=== PATIENT | female | born 1985 | race Caucasian/White ===

== ENCOUNTER 2021-06-24 01:03 | Day surgery (SDC) | payer OTHER, SELFPAY ==
[2021-06-11 13:09] VITALS: BMI 34.9
[2021-06-24 07:48] VITALS: BP 123/69; PULSE 101; RESP 20; TEMP 36.6; O2SAT 97
[2021-06-24] MEDS: LACTATED RINGERS 1,000 ML 150 ML IV CONT (08:10)
--- NOTE | 2021-06-24 08:43 | WPDANESEPPF ---
Anes - Initial Pre Proc Eval Procedure: Operation Date: 06/24/21 09:00 Proposed Procedures p Esophagogastroduodenoscopy - Wes Jimenez MD Date/Time: 06/24/21 08:43 Surgeon: Wes Jimenez MD Pre Op Diagnosis: GERD Patient Data Age: 35 Gender: F Height: 1.6 m Weight: 89.9 kg Last Vital Signs Temp 98 F 06/24/21 07:48 Pulse 101 H 06/24/21 07:48 Resp 20 06/24/21 07:48 BP 123/69 06/24/21 07:48 Pulse Ox 97 06/24/21 07:48 Allergies Allergy/AdvReac Type Severity Reaction Status Date / Time No Known Allergies Allergy Verified 06/24/21 07:46 Home Medications Medication Instructions Recorded Confirmed Type aspirin 81 mg tablet,delayed 81 mg PO DAILY 06/06/21 06/11/21 History release bupropion HCl 300 mg 24 hr tablet, 300 mg PO QAM 06/06/21 06/11/21 History extended release buspirone 5 mg tablet 5 mg PO DAILY tablet 06/06/21 06/11/21 History famotidine 20 mg tablet 20 mg PO DAILY 06/06/21 06/11/21 History pantoprazole 40 mg tablet,delayed 40 mg PO QAM 06/06/21 06/11/21 History release sertraline 100 mg tablet 100 mg PO DAILY 06/06/21 06/11/21 History sertraline 50 mg tablet 50 mg PO DAILY 06/06/21 06/11/21 History Patient hx anesthesia problems: none Family hx anesthesia problems: none Results Review: All pre-operative results and documents have been reviewed as part of the pre-operative evaluation. [facility] Past Medical History Medical History (Updated 06/06/21 @ 13:37 by ROSINA Vaz) Obese Social History Social History Smoking status: Never smoker Alcohol intake: current Alcohol use details: socially Substance use: never Substance use type: does not use Living arrangements: with family Spiritual care concerns: No Anes - Eval Final PreProcedure Day of Procedure 06/24/21 08:43 Patient weight: obese Heart: regular rate and rhythm Lungs: clear to auscultation Airway: Mallampati scale class II Neurological: alert and oriented Last oral intake: >/= 8 hours ASA classification: II Emergent: no Anesthetic plan: proceed Anesthesia type and monitoring: general GIVS and standard monitoring Results Review: All pre-operative results and documents have been reviewed as part of the pre-operative evaluation. Informed Consent: The patient's anesthetic plan and its attendant risks and benefits were discussed with the patient/family/POA. Questions were solicited and answers provided to the satisfaction of the patient/family/POA.
--- NOTE | 2021-06-24 09:08 | WPDHPUPDATE1 ---
History and Physical Update Update Date/Time: 06/24/21 09:08 History and Physical has been reviewed, including an updated exam of the patient. There are NO changes in the patient's condition. Risks, benefits, and alternatives have been discussed and questions answered. Patient agrees to proceed with procedure.
[2021-06-24 09:26] VITALS: BP 87/41; PULSE 85; RESP 19; O2SAT 97
[2021-06-24 09:36] VITALS: BP 91/51; PULSE 78; RESP 17; O2SAT 97
[2021-06-24 09:46] VITALS: BP 121/73; PULSE 82; RESP 26; O2SAT 100
== END 2021-06-24 10:12 | disposition home or self-care (01) ==
PROVIDERS: PCP Family Medicine; Visit Provider Internal Medicine Gastroenterology
PROC: 0DJ08ZZ Inspection of Upper Intestinal Tract, Via Natural or Artificial Opening Endoscopic (ICD-10-PCS; CPT 43235; principal; 2021-06-24 09:00)
DX: K21.9 Gastro-esophageal reflux disease without esophagitis (principal); R11.0 Nausea; K44.9 Diaphragmatic hernia without obstruction or gangrene; K29.50 Unspecified chronic gastritis without bleeding; Z79.82 Long term (current) use of aspirin; E66.9 Obesity, unspecified; Z68.35 Body mass index [BMI] 35.0-35.9, adult
CPT/HCPCS: 43239; 88305; J7120

== ENCOUNTER 2022-06-13 08:38 | Emergency (ER) | payer OTHER, SELFPAY ==
--- NOTE | ~2022-06-13 | US_ITS ---
EXAMINATION: US pelvic complete w TV DATE: 06/13/2022 11:12 INDICATION: Pelvic pain Comparison:07/21/2014 TECHNIQUE: Multiple transabdominal and endovaginal sonographic images of the pelvis performed. FINDINGS: The uterus measures 8.5 x 4.2 x 5.7 cm. There is an IUD present in the endometrium. The end ometrial complex measures 8 mm. There are nabothian cysts. The right ovary measures 2.8 x 1.5 x 1.3 cm and the left ovary measures 5.2 x 2.1 x 2 cm. There is an irregular left ovarian cyst measuring 2.8 x 1 x 0.7 cm There are small follicles in each ovary. Norm al doppler signal in both ovaries. There is free fluid in the pelvis. There are no abnormal masses seen on either side. IMPRESSION: 1. Irregular 2.8 x 1 x 0.7 cm left ovarian cyst, likely functional. 2: IUD present within the uterus. Reviewed, dictated and finalized at location A.
[2022-06-13 08:40] VITALS: BP 138/78; PULSE 100; RESP 16; TEMP 36.1; O2SAT 100
[2022-06-13 08:59] LABS: Appearance Urine Clear (Clear); Bilirubin Urine Negative (Negative); Blood Urine Negative (Negative); Color Urine Yellow (Yellow); Glucose Urine UA Negative (Negative); Ketones Urine Negative (Negative); Leukocyte Esterase Ur Negative LEU/UL (Negative); Nitrate Urine Negative (Negative); Protein Urine Negative (Negative); Specific Grav Ur 1.025 (1.001-1.035); Urobilinogen Urine 0.2 mg/dL (<2.0)
[2022-06-13 09:04] LABS: Add Urine Microscopic? NO
[2022-06-13 09:12] LABS: Mucus Urine Rare /lpf; RBC Urine 0-2 /hpf (0-2); Squamous Epithelial Cell Urine Moderate /hpf (Few); WBC Urine 0-3 /hpf
[2022-06-13] MEDS: MORPHINE SULFATE (*CRX) 4 MG/ML INJ IV PUSH (09:27)
[2022-06-13 09:34] LABS: Basophils Percent Auto 0.5 % (0.2-1.2); Eosinophils Absolute Auto 0.1 K/mm3 (0-0.3); Eosinophils Percent Auto 1.8 % (0-4.4); Hematocrit 41.4 % (37.0-47.0); Hemoglobin 13.8 g/dL (12.0-15.0); Immature Granulocyte Absolute 0.04 K/mm3 (0.00-0.031); Immature Granulocyte Percent A 0.6 % (0-0.5); Lymphocytes Absolute Auto 1.19 K/mm3 (0.9-3.2); Lymphocytes Percent Auto 19.3 % (18.3-44.2); Mean Corpuscular HGB Conc 33.3 g/dl (32-36); Mean Corpuscular Hemoglobin 29.1 pg (26-34); Mean Corpuscular Volume 87.3 fl (80-100); Mean Platelet Volume 10.4 fl (7.4-10.4); Monocytes Absolute Auto 0.6 K/mm3 (0.1-0.6); Monocytes Percent Auto 9.6 % (2.6-8.5); Neutrophils Absolute Auto 4.2 K/mm3 (1.3-6.7); Neutrophils Percent Auto 68.2 % (45.5-73.1); Platelet Count Result 276 k/mm3 (150-375); Red Blood Count 4.74 M/mm3 (4.2-5.4); Red Cell Distribution Width 14.3 % (11.5-14.5); White Blood Count 6.2 K/mm3 (4.5-10.0)
[2022-06-13 09:53] LABS: Alanine Aminotransferase 15 U/L (6-35); Albumin Level 4.4 g/dL (3.5-5.1); Alkaline Phosphatase 79 U/L (38-126); Anion Gap 10 mmol/L (8-16); Aspartate Amino Transferase 25 U/L (14-36); Bilirubin,Total 0.6 mg/dL (0.2-1.3); Blood Urea Nitrogen 12 mg/dL (7-17); Calcium 9.1 mg/dL (8.4-10.2); Carbon Dioxide 22 mmol/L (22-30); Chloride 106 mmol/L (98-107); Estimated CRCL calculation 76 ml/min; Estimated Glomerular Filt Rate > 60; Glucose 106 mg/dL (65-110); Lipase 180 U/L (23-300); Potassium 4.4 mmol/L (3.4-5.0); Sodium 138 mmol/L (137-145)
--- NOTE | 2022-06-13 11:45 | ED.GENADULT ---
HPI - General Adult General Chief complaint: Urogenital-Female Stated complaint: pelvic and rectal pain Time Seen by Provider: 06/13/22 08:43 History of Present Illness HPI narrative: Patient is a 35-year-old female who presents ER with lower pelvic pain and pain going into the rectum. Began after using the restroom this morning. [place] a sudden onset discomfort left side that moved into her bottom. No diarrhea. No urinary frequency urgency or dysuria. Pain has decreased but still present. No fevers or chills or sweats. Related Data Home Medications Medication Instructions Recorded Confirmed aspirin 81 mg tablet,delayed 81 mg PO DAILY 06/06/21 08/08/21 release bupropion HCl 300 mg 24 hr tablet, 300 mg PO QAM 06/06/21 08/08/21 extended release buspirone 5 mg tablet 5 mg PO DAILY 06/06/21 08/08/21 famotidine 20 mg tablet (Pepcid) 20 mg PO DAILY 06/06/21 08/08/21 sertraline 100 mg tablet 100 mg PO DAILY 06/06/21 08/08/21 sertraline 50 mg tablet 50 mg PO DAILY 06/06/21 08/08/21 aripiprazole 2 mg tablet mg 06/13/22 06/13/22 Allergies Allergy/AdvReac Type Severity Reaction Status Date / Time No Known Allergies Allergy Verified 06/13/22 08:53 Review of Systems Review of Systems: All systems reviewed & are unremarkable except as noted in HPI and below Constitutional: Constitutional: Denies chills and Denies fever(s) Respiratory: Respiratory: Denies cough and Denies dyspnea Gastrointestinal: Gastrointestinal: Reports abdominal pain, Denies diarrhea, Denies nausea and Denies vomiting Genitourinary: Genitourinary: Denies nocturia, Denies dysuria, Reports pelvic pain and Denies flank pain PMF Past Medical History Medical History (Updated 06/13/22 @ 11:48 by Jos Fitch MD) Obese Surgical History Surgical History (Updated 06/13/22 @ 11:46 by Jos Fitch MD) Status post sclerotherapy of varicose veins Social History Social History Alcohol intake: current Alcohol use details: socially Substance use: never Substance use type: does not use Spiritual care concerns: No Exam Narrative: GENERAL: Well-appearing, well-nourished, and in no acute distress. HEAD: Normocephalic, atraumatic. CHEST: Clear to auscultation. No respiratory distress. HEART: Regular rate and rhythm. Normal peripheral pulses. ABDOMEN: Soft, mildly tender in left adnexal region, nondistended. EXTREMITIES: Normal range of motion. No edema. SKIN: Warm, dry, no rash. NEURO: Alert and oriented x3. PSYCH: Normal mood and affect. Course Course Emergency Course: Patient informed of results. Discussed treatment plan. Discharge home. Vital Signs Vital signs: Vital Signs Temperature 97 F L 06/13/22 08:40 Pulse Rate 100 06/13/22 08:40 Respiratory Rate 16 06/13/22 08:40 Blood Pressure 138/78 06/13/22 08:40 Pulse Oximetry 100 06/13/22 08:40 Oxygen Delivery Room Air 06/13/22 08:40 Temperature 97 F L 06/13/22 08:40 Pulse Rate 100 06/13/22 08:40 Respiratory Rate 16 06/13/22 08:40 Blood Pressure 138/78 06/13/22 08:40 Pulse Oximetry 100 06/13/22 08:40 Oxygen Delivery Room Air 06/13/22 08:40 Medical Decision Making Vital Signs Vital Signs: Vital Signs Temperature 97 F L 06/13/22 08:40 Pulse Rate 100 06/13/22 08:40 Respiratory Rate 16 06/13/22 08:40 Blood Pressure 138/78 06/13/22 08:40 Pulse Oximetry 100 06/13/22 08:40 Oxygen Delivery Room Air 06/13/22 08:40 Temperature 97 F L 06/13/22 08:40 Pulse Rate 100 06/13/22 08:40 Respiratory Rate 16 06/13/22 08:40 Blood Pressure 138/78 06/13/22 08:40 Pulse Oximetry 100 06/13/22 08:40 Oxygen Delivery Room Air 06/13/22 08:40 Lab Data Result diagrams: 06/13/22 09:19 06/13/22 09:19 Labs: Lab Results 06/13/22 06/13/22 06/13/22 Range/Units 08:49 09:19 09:19 WBC 6.2 (4.5-10.
[2022-06-13 12:00] VITALS: BP 121/73; PULSE 80; RESP 16; O2SAT 98
== END 2022-06-13 12:00 | disposition home or self-care (01) ==
PROVIDERS: Emergency Provider Emergency Medicine; PCP Family Medicine
DX: N83.202 Unspecified ovarian cyst, left side (principal); Z79.82 Long term (current) use of aspirin; E66.9 Obesity, unspecified; Z68.37 Body mass index [BMI] 37.0-37.9, adult; Z97.5 Presence of (intrauterine) contraceptive device
CPT/HCPCS: 36415; 76830; 76856; 80053; 81003; 81025; 83690; 85025; 96374; 99284; J2270

== ENCOUNTER 2023-04-01 15:06 | Emergency (ER) | payer OTHER, SELFPAY ==
[2023-04-01] VITALS (7 sets, daily range): BP systolic 137–150; BP diastolic 80–88; PULSE 89–99; RESP 16; TEMP 36.6; O2SAT 100
--- NOTE | ~2023-04-01 | CT_ITS ---
EXAMINATION: CT abdomen pelvis w con DATE: 04/01/2023 18:24 INDICATION: Right lower quadrant abdominal pain. Right flank pain. TECHNIQUE: Computed tomography (CT) of the abdomen and pelvis was performed with 100 mL Omnipaque 350 intravenous contrast. Automated exposure control and iterative reconstruction technique were employe d. The dose-length product was 1012.64 mGy-cm. COMPARISON: CT abdomen and pelvis 04/15/2018 FINDINGS: The visualized portions of the lung bases demonstrate mild atelectasis. No pleural effusion . The heart size is normal. No pericardial effusion. The liver, gallbladder, spleen, pancreas, adrena l glands, and kidneys are normal. The appendix measures 9 mm in diameter and measured 10 mm on 018. There are no pathologically enlarged lymph nodes. There is no free intraperitoneal fluid. The sherry aj are unremarkable. IMPRESSION: 1. Appendiceal diameter of 9 mm, which is indeterminate for acute appendicitis. Reviewed, dictated and finalized at location E.
[2023-04-01 17:24] LABS: Basophils Percent Auto 0.3 % (0.2-1.2); Eosinophils Absolute Auto 0.1 K/mm3 (0-0.3); Eosinophils Percent Auto 1.4 % (0-4.4); Hematocrit 43.8 % (37.0-47.0); Hemoglobin 14.8 g/dL (12.0-15.0); Immature Granulocyte Absolute 0.04 K/mm3 (0.00-0.031); Immature Granulocyte Percent A 0.4 % (0-0.5); Lymphocytes Absolute Auto 2.06 K/mm3 (0.9-3.2); Lymphocytes Percent Auto 22.5 % (18.3-44.2); Mean Corpuscular HGB Conc 33.8 g/dl (32-36); Mean Corpuscular Hemoglobin 29.3 pg (26-34); Mean Corpuscular Volume 86.7 fl (80-100); Mean Platelet Volume 10.2 fl (7.4-10.4); Monocytes Absolute Auto 0.7 K/mm3 (0.1-0.6); Monocytes Percent Auto 7.3 % (2.6-8.5); Neutrophils Absolute Auto 6.2 K/mm3 (1.3-6.7); Neutrophils Percent Auto 68.1 % (45.5-73.1); Platelet Count Result 317 k/mm3 (150-375); Red Blood Count 5.05 M/mm3 (4.2-5.4); Red Cell Distribution Width 13.9 % (11.5-14.5); White Blood Count 9.2 K/mm3 (4.5-10.0)
[2023-04-01 17:32] LABS: Alanine Aminotransferase 22 U/L (6-35); Albumin Level 4.9 g/dL (3.5-5.1); Alkaline Phosphatase 101 U/L (38-126); Anion Gap 5 mmol/L (8-16); Aspartate Amino Transferase 25 U/L (14-36); Bilirubin,Total 0.7 mg/dL (0.2-1.3); Blood Urea Nitrogen 15 mg/dL (7-17); Carbon Dioxide 26 mmol/L (22-30); Chloride 103 mmol/L (98-107); Estimated CRCL calculation 62 ml/min; Estimated Glomerular Filt Rate 51; Glucose 95 mg/dL (65-110); Lipase 153 U/L (23-300); Potassium 3.8 mmol/L (3.4-5.0); Sodium 134 mmol/L (137-145)
[2023-04-01 17:38] LABS: Appearance Urine Clear (Clear); Bacteria Urine Rare /hpf; Bilirubin Urine Negative (Negative); Blood Urine Negative (Negative); Color Urine Yellow (Yellow); Glucose Urine UA Negative (Negative); Ketones Urine Trace mg/dL (Negative); Leukocyte Esterase Ur Trace LEU/UL (Negative); Nitrate Urine Negative (Negative); Non Pathogenic Casts 0-2; Protein Urine Negative (Negative); RBC Urine 0-2 /hpf (0-2); Specific Grav Ur 1.012 (1.001-1.035); Squamous Epithelial Cell Urine None seen /hpf (Few); Urobilinogen Urine 0.2 mg/dL (<2.0); WBC Urine 0-5 /hpf
[2023-04-01 17:42] LABS: Add Urine Microscopic? YES
--- NOTE | 2023-04-01 17:48 | ED.ABDPAIN ---
HPI - Abdominal Pain General Chief Complaint: Abdominal Pain <Karrie Osorio APRN - Last Filed: 04/02/23 02:15> Stated Complaint: abd pain/nausea/diarrhea <Karrie Osorio APRN - Last Filed: 04/02/23 02:15> Time Seen by Provider: 04/01/23 17:18 <Karrie sOorio APRN - Last Filed: 04/02/23 02:15> Source: patient <Karrie Osorio APRN - Last Filed: 04/02/23 02:15> Mode of arrival: ambulatory <Karrie Osorio APRN - Last Filed: 04/02/23 02:15> Limitations: no limitations <Karrie Osorio APRN - Last Filed: 04/02/23 02:15> History of Present Illness HPI narrative: 37-year-old female presents today with concerns of right lower abdominal pain, nausea, diarrhea that started on Wednesday. Patient states currently she has no diarrhea but right lower quadrant pain has persisted. Also with nausea but no vomiting. Patient states she is able to tolerate fluids without issues. Denies any burning on urination, hematuria, flank pain. Has had a hysterectomy. But still has appendix. On pantoprazole. And antidepressants. Patient denies any sick contacts. <Karrie Osorio APRN - Last Filed: 04/02/23 02:15> MD elicited complaint: abdominal pain <Karrie Osorio APRN - Last Filed: 04/02/23 02:15> Related Data Home Medications: Home Medications Medication Instructions Recorded Confirmed aspirin 81 mg tablet,delayed 81 mg PO DAILY 06/06/21 08/08/21 release bupropion HCl 300 mg 24 hr tablet, 300 mg PO QAM 06/06/21 08/08/21 extended release buspirone 5 mg tablet 5 mg PO DAILY 06/06/21 08/08/21 famotidine 20 mg tablet (Pepcid) 20 mg PO DAILY 06/06/21 08/08/21 sertraline 100 mg tablet 100 mg PO DAILY 06/06/21 08/08/21 sertraline 50 mg tablet 50 mg PO DAILY 06/06/21 08/08/21 aripiprazole 2 mg tablet mg 06/13/22 06/13/22 <Karrie Osorio APRN - Last Filed: 04/02/23 02:15> Allergies/Adverse Reactions: Allergies Allergy/AdvReac Type Severity Reaction Status Date / Time No Known Allergies Allergy Verified 06/13/22 08:53 <Karrie Osorio APRN - Last Filed: 04/02/23 02:15> Review of Systems Review of Systems: CONSTITUTIONAL: Denies fever, chills, or sweats. EYES: Denies visual changes, redness, or discharge. CARDIOVASCULAR: Denies chest pain, palpitations, or edema. RESPIRATORY: Denies cough or dyspnea. GASTROINTESTINAL: Right lower quadrant pain, nausea, diarrhea. GENITOURINARY: Denies dysuria or hematuria. SKIN: Denies rash or itching. MUSCULOSKELETAL: Denies back pain, joint pain, or myalgia. NEUROLOGIC: Denies headache, numbness, dizziness, or weakness. PSYCHIATRIC: Denies anxiety or depression. <Karrie Osorio APRN - Last Filed: 04/02/23 02:15> PMFSH Past Medical History Medical History: Medical History Depression Obese <Karrie Osorio APRN - Last Filed: 04/02/23 02:15> Surgical History Surgical History: Surgical History Status post sclerotherapy of varicose veins <Karrie Osorio APRN - Last Filed: 04/02/23 02:15> Social History Social History: Social History Alcohol intake: current Alcohol use details: socially Substance use: never Substance use type: does not use Living arrangements: with family Spiritual care concerns: No <Karrie Osorio APRN - Last Filed: 04/02/23 02:15> Exam Narrative: GENERAL: Well-appearing, well-nourished, and in no acute distress. HEAD: Normocephalic, atraumatic. EYES: PERRLA and EOMI. NECK: Supple. No adenopathy or masses. CHEST: Clear to auscultation. No respiratory distress. No wheezes rales or rhonchi HEART: Regular rate and rhythm. No murmur heard. Normal peripheral pulses. ABDOMEN: Soft, right lower quadrant tenderness, no rebound tenderness, nondistended, normal active bowel sounds. EXTREMITIES: Normal range of
--- NOTE | 2023-04-01 18:15 | PC.NURSE ---
pt to ct via wheelchair at this time
[2023-04-01] MEDS: SODIUM CHLORIDE 0.9% IV 1,000 ML 999 ML IV CONT ×2 (18:26)
[2023-04-01] MEDS: KETOROLAC 30 MG/ML VIAL (*BKC) IV PUSH (19:20)
== END 2023-04-01 20:56 | disposition home or self-care (01) ==
PROVIDERS: Emergency Medicine; Emergency Provider Nurse Practitioner Family; PCP Family Medicine
DX: R10.31 Right lower quadrant pain (principal); F32.A Depression, unspecified; E66.9 Obesity, unspecified; Z68.38 Body mass index [BMI] 38.0-38.9, adult
CPT/HCPCS: 36415; 74177; 80053; 81001; 83690; 85025; 96361; 96374; 99284; J1885; J7030; Q9967

== ENCOUNTER 2023-07-06 15:00 | Outpatient (CLI) | payer OTHER, SELFPAY ==
--- NOTE | ~2023-07-06 | XR_ITS ---
XR abdomen/kub 1V DATE: 07/06/2023 15:10 INDICATION: Right flank pain. History kidney stones. TECHNIQUE: 2 supine AP views COMPARISON: 07/06/2023 bilateral renal ultrasound 04/01/2023 CT abdomen pelvis FINDINGS: Several probable right calcified pelvic phleboliths; otherwise no calcification is noted ov erlying the kidneys or expected position of the ureters. The psoas shadows are intact. No visceromegaly is evident. The bowel gas pattern is unremarkable, wit hout obstruction. Included skeletal structures are unremarkable. IMPRESSION: No significant abnormality Reviewed, dictated and finalized at Location A. Reviewed, dictated and finalized at location A. IMPRESSION: No significant abnormality
--- NOTE | ~2023-07-06 | US_ITS ---
US renal BI DATE: 07/06/2023 15:26 INDICATION: Abnormal kidney function study TECHNIQUE: Real-time imaging of kidneys and urinary bladder COMPARISON: 07/06/2023 KUB 04/01/2023 CT abdomen pelvis FINDINGS: The right kidney measures approximately 12.9 cm length, left kidney 10.6 cm. There is duplication of both kidneys. No renal mass lesion or hydronephrosis is detected. The urinary bladder is unremarkable. Bilateral ur eteral jets. IMPRESSION: Bilateral renal duplication No renal mass lesion or hydronephrosis Reviewed, dictated and finalized at Location A. Reviewed, dictated and finalized at location A.
== END 2023-07-06 15:01 ==
LOC: GOSHIMG 15:01
PROVIDERS: PCP Family Medicine; Visit Provider Internal Medicine Nephrology
DX: R94.4 Abnormal results of kidney function studies (principal); N20.0 Calculus of kidney
CPT/HCPCS: 74018; 76775

== ENCOUNTER 2024-04-09 10:27 | Emergency (ER) | payer OTHER, SELFPAY ==
[2024-04-09 10:33] VITALS: BP 129/84; PULSE 100; RESP 18; TEMP 36.4; O2SAT 100
[2024-04-09 11:29] LABS: EDINFLUASCREEN Negative; EDINFLUBSCREEN Negative; EDSTREPNEGPOS1 Presumptive Negative
--- NOTE | 2024-04-09 11:29 | ED.GENADULT ---
HPI - General Adult General Chief complaint: Upper Respiratory Infection Stated complaint: Sore Throat Source: patient Mode of arrival: ambulatory Limitations: no limitations History of Present Illness HPI narrative: Patient presents for evaluation of sick symptoms for last 2 days. Symptoms include runny nose, sore throat, facial pain, and occasional cough. No fever, chills, nausea, vomiting. She has chronic diarrhea which is unchanged from her baseline. No recent sick contacts to her knowledge. She took NyQuil and Tylenol for symptoms. She does not smoke. Related Data Home Medications Medication Instructions Recorded Confirmed aspirin 81 mg tablet,delayed 81 mg PO DAILY 06/06/21 10/12/23 release famotidine 20 mg tablet (Pepcid) 20 mg PO DAILY 06/06/21 10/12/23 bupropion HCl 300 mg 24 hr tablet, 150 mg PO QAM 06/30/23 10/12/23 extended release cholecalciferol (vitamin D3) 1,250 1,250 mcg PO WEEKLY 06/30/23 10/12/23 mcg (50,000 unit) tablet lamotrigine 50 mg tablet,extended 50 mg PO BID 06/30/23 10/12/23 release 24 hr mecobalamin (vitamin B12) 10,000 mcg IM MONTHLY 06/30/23 10/12/23 mcg solution for injection methylphenidate HCl 36 mg 36 mg PO QAM 06/30/23 10/12/23 tablet,extended release 24 hr (Concerta) sertraline 100 mg tablet 200 mg PO DAILY 06/30/23 10/12/23 alprazolam 0.5 mg tablet mg 04/09/24 04/09/24 cyanocobalamin (vitamin B-12) mcg 04/09/24 1,000 mcg/mL injection solution topiramate 25 mg tablet mg 04/09/24 Allergies Allergy/AdvReac Type Severity Reaction Status Date / Time No Known Allergies Allergy Verified 04/09/24 10:46 Review of Systems Review of Systems: CONSTITUTIONAL: Denies fever, chills, or sweats. EYES: Denies visual changes, redness, or discharge. ENT: Reports facial pain. Reports sinus congestion, rhinorrhea and sore throat CARDIOVASCULAR: Denies chest pain, palpitations, or edema. RESPIRATORY: Reports occasional cough. Denies shortness of breath. GASTROINTESTINAL: Denies abdominal pain, nausea, vomiting, or diarrhea. GENITOURINARY: Denies dysuria or hematuria. SKIN: Denies rash or itching. MUSCULOSKELETAL: Denies back pain, joint pain, or myalgia. NEUROLOGIC: Denies headache, numbness, dizziness, or weakness. PSYCHIATRIC: Denies anxiety or depression. [facility] Past Medical History Medical History Depression Inflammatory arthritis Obese Surgical History Surgical History H/O section X's 4 History of partial hysterectomy History of right oophorectomy Status post sclerotherapy of varicose veins Family History Family History Mother Family history non-contributory Social History Social History Smoking status: Never smoker Alcohol intake: current Alcohol use details: socially Substance use: never Substance use type: does not use Lack of Transportation: No Lack of Food: Never True Current Housing: I Have Housing Concerned About Future Housing: No Difficulty Paying Gas/Electric Bills: No Difficulty Paying for Meds: No Currently Unemployed: No Education: Bachelor's Degree Difficulty w/ Childcare or Family Care: No Living arrangements: with family Gender identity (if verbalized by the patient): Female Sexual Orientation (if Verbalized by the Patient): Straight or Heterosexual Spiritual care concerns: No Exam Narrative: GENERAL: Well-appearing, well-nourished, and in no acute distress. HEAD: Normocephalic, atraumatic. EYES: PERRLA and EOMI. ENT: Nares clear, no rhinorrhea or epistaxis. Mucous membranes moist. Oropharynx without tonsillar hypertrophy exudate or other lesions. Bilateral TMs pearly adrian nonbulging NECK: Supple. No adenopathy or masses. No llanes
== END 2024-04-09 11:30 | disposition home or self-care (01) ==
PROVIDERS: Emergency Provider Nurse Practitioner
DX: U07.1 COVID-19 (principal); F32.A Depression, unspecified; M13.80 Other specified arthritis, unspecified site; E66.9 Obesity, unspecified; Z68.37 Body mass index [BMI] 37.0-37.9, adult; Z90.711 Acquired absence of uterus with remaining cervical stump
CPT/HCPCS: 87081; 87426; 87804; 87880; 99213; G0463

== ENCOUNTER 2024-12-16 12:12 | Emergency (ER) | payer OTHER, SELFPAY ==
--- OUTSIDE RECORDS SUMMARY | 2024-12-16 12:15 | XMS_ITS ---
Author Organization [facility] Address [address] [place] [address] Phone Care Team Providers Care Damper Fitter Name Role Phone Unavailable Unavailable Unavailable Plan of Treatment Findings Encounter Date Continue current medication COVID SICK V ISIT- NEW PATIENT with JOHN [employer] 09/26/2021 Last Documented On 2 1:36PM ; [facility] The options include close observation CO VID SICK VISIT- NEW PATIENT with JOHNKALA [employer] 09/26/2021 Last Documented On 2 1:36PM ; [facility] Assessments Includes: Assessments for all patient encounters Findings Encounter Date Contact with and (Suspected) exposure to COVID-19 COVID SICK VISIT- NEW PATIENT with JOHN [employer] 09/26/2021 Last Documented On 2 1:36PM ; [facility] Medical Equipment - Implanted Devices Includes: Current and historical Devices No Medical Equipment Recorded Medications Includes: Current and historical Medications Current Medications (continue as prescribed) Pantoprazole Sodium 40 MG Or al Tablet Delayed Release 08/31/2021 Provider: BRAD THOMPSON MD Diagnosis: Last Documented On 2 1:15PM By Suha Alcantara MA ; [facility] buPROPion HCl ER (XL) 300 MG Oral Tablet Extended Release 24 Hour 07/04/2021 Provider: KIERAN VILLASEÑOR MD Diagnosis: Last Documented On 2 1:15PM By Suha Alcantara MA ; [facility] busPIRone HCl 5 MG Oral Tablet 07/04/2021 Provider: KIERAN VILLASEÑOR MD Diagnosis: Last Documented On 2 1:15PM By Suha Alcantara MA ; [facility] Sertraline HCl 100 MG Oral Tablet 07/04/2021 Provide r: KIERAN VILLASEÑOR MD Diagnosis: Last Documented On 2 1:15PM By Suha Alcantara MA ; [facility] Medications Administered Includes: Administered Medications in patient's chart No Administered Medications Recorded Results Includes: Results from 12/17/2023 through 12/16/2024 No Results Recorded For Specified Dates History of Present Illness History of Present Illness not supported for this document type No History of Present Illness Recorded Social History Description Last Updated No tobacco use 09/26/2021 Last Documented On 2 1:36PM ; [facility] Smoking Status Unknown Medical History Includes: Medical History in patient's chart Description Last Updated Exposure to a contagious disease 022 Last Documented On 2 1:36PM ; [facility] Not taking OTC medications 09/26/2021 Last Documented On 2 1:36PM ; [facility] Family History Includes: Family History in patient's chart No Family History Recorded Review of Systems Review of Systems not supported for this document type No Review of Systems Recorded Mental Status No Mental Status Recorded Functional Status No Functional Status Recorded Physical Exam Physical Exam not supported for this document type No Physical Exam Recorded Allergies Includes: Active, inactive, and resolved Allergies No Known Allergies Insurance Includes: Active Insurance Policies Plan Name Member ID Group # Subscriber Relationship Effect vernon Dates 1 - [facility] [id number] JEVON lara Clinical Notes Includes: Signed Clinical Notes starting from 10/09/2022 No Clinical Notes Recorded
--- OUTSIDE RECORDS SUMMARY | 2024-12-16 12:15 | XMS_ITS | Clinical Summary ---
Author Organization [facility] Address [address] [place] [address] Phone Care Team Providers Care Sizing Machine Tender Name Role Phone Unavailable Unavailable Unavailable Reason for Visit and Chief Complaint The Chief Complaint is: Fatigue, bodyaches, and headache since Wednesday, exposed to covid on 09-13-21 Plan of Treatment - The options include close observation - Last Documented On 09/26/2021 1:36PM ; [facility] - Continue current medication - Last Documented On 09/26/2021 1:36PM ; [facility] Rapid COVID testing performed today and was negative. Patient to continue to monitor symptoms closely as rapid testing may have false negative results. Patient advised that they may return to work/school when fever free for 24 hours and symptoms have improved. Call with development of additional or worsening symptoms. Go to ED with severe respiratory symptoms. - Last Documented On 09/26/2021 1:36PM ; [facility] Assessments Includes: Assessments from this encounter Findings - Contact with and (Suspected) exposure to COVID-19 [Contact with and (suspected) exposure to COVID-19] - Last Documented On 09/26/2021 1:36PM ; [facility] Medical Equipment - Implanted Devices Includes: Current Devices No Medical Equipment Recorded Medications Includes: Medications discussed during this encounter and other current Medications Current Medications (continue as prescribed) Pantoprazole Sodium 40 MG Or al Tablet Delayed Release 08/31/2021 Provider: BRAD THOMPSON MD Diagnosis: Last Documented On 1:15PM By Suha Alcantara MA ; [facility] buPROPion HCl ER (XL) 300 MG Oral Tablet Extended Release 24 Hour 07/04/2021 Provider: KIERAN VILLASEÑOR MD Diagnosis: Last Documented On 2 1:15PM By Suha Alcantara MA ; [facility] busPIRone HCl 5 MG Oral Tablet 07/04/2021 Provider: KIERAN VILLASEÑOR MD Diagnosis: Last Documented On 2 1:15PM By Suha Alcantara MA ; [facility] Sertraline HCl 100 MG Oral Tablet 07/04/2021 Provide r: KIERAN VILLASEÑOR MD Diagnosis: Last Documented On 2 1:15PM By Suha Alcantara MA ; [facility] Medications Administered Includes: Administered Medications from this encounter No Administered Medications Recorded Vital Signs Includes: Vital Signs from this encounter Vital Name 09/26/2021 01:15P Pulse Rate-Sitting (bpm) 95 Temp-Oral (F) 98.9 Oxygen Saturation (%) 96 Last Documented: On 09/26/2021 1:15PM ; [facility] Results Includes: Results discussed during this encounter Rapid COVID Test [facility] Ordered by JOHN GOULD on 03/2022 Collected: Reported: 09/26/2021 13:27 Last Documented On 2 1:28PM ; [facility] Reviewed on 09/26/2021; All test results are final unless otherwise noted. Rapid COVId neg N (Normal) Last Documented On 2 1:28PM ; [facility] Int. QC Acceptable yes N (Normal) Last Documented On 2 1:28PM ; [facility] Lot # and Exp. Date [id number] 12-21-21 N (Normal) Last Documented On 2 1:28PM ; [facility] History of Present Illness Includes: History of Present Illness from this encounter STEVE THOMAS is a 36 year old female. - Allergy list reviewed - Medication list reviewed - Feeling tired - Not feeling poorly (malaise) - No fever - No chills - Headache - No sinus pain - No swollen glands in the neck - No ear symptoms - No earache - No nasal discharge - No postnasal drip - No nasal passage blockage (stuffiness) - No sneezing - No sore throat - No chest pain or discomfort - Not feeling congested in the chest - No shortness of breath - No cough - Not coughing up sputum - No wheezing - Normal appetite - No nausea - No vomiting - No abdominal pain - No diarrhea - Myalgias - No anosmia - No taste disturbances - Not unpleasantly altered - No skin symptoms Jevon is a 36-year-old female patient that presented to the walk-in clinic for fatigue, body aches and headache that started one week ago. She reports that she was exposed to COVID on 09/13/21. She is COVID-vaccinated. Social History Description Last Updated No tobacco use 09/26/2021 Last Documented On 2 1:36PM ; [facility] Smoking Status Unknown Procedures and Surgical History Includes: Procedures from this encounter Procedures Code Diagnosis Performing Provider Service L ocation Service Date Pt to use OTC fever/pain product as needed per product instruction.~ Last Documented On 2 1:34PM ; [facility] plan of care reviewed and agreed to Last Documented On 2 1:34PM ; [facility] patient to call if symptoms worsen or not improved to update patient's status as needed Last Documented On 2 1:34PM ; [facility] Medical History Includes: Medical History addressed during this encounter Description Last Updated Exposure to a contagious disease 022 Last Documented On 2 1:36PM ; [facility] Not taking OTC medications 09/26/2021 Last Documented On 2 1:36PM ; [facility] Family History Includes: Family History addressed during this encounter No Family History Recorded Review of Systems Includes: Review of Systems from this encounter Systemic: No fever and no chills. Head: Headache. No sinus pressure. Otolaryngeal: No earache, no nasal discharge, and no sore throat. Cardiovascular: No chest pain or discomfort. Pulmonary: No cough and no wheezing. Gastrointestinal: No vomiting, no abdominal pain, and no diarrhea. Musculoskeletal: Muscle aches. Skin: No skin lesions. Mental Status Includes: Mental Status from this encounter No Mental Status Recorded Functional Status Includes: Functional Status from this encounter No Functional Status Recorded Physical Exam Includes: Physical Exam from this encounter Allergies Includes: Active Allergies No Known Allergies Encounters Encounter Provider Location Date Check-In Time Check-Out Time Diagnosis COVID SICK VISIT- NEW PATIENT JOHN SALTER ESL TEACHER-C [facility] 09/26/19 22 12:51PM 1:28PM Contact with and (Suspected) Exposure To Covid-19 Insurance Includes: Active Insurance Policies Plan Name Member ID Group # Subscriber Relationship Effect vernon Dates 1 - [facility] [id number] JEVON lara Clinical Notes Includes: Clinical Notes from this encounter No Clinical Notes Recorded
--- OUTSIDE RECORDS SUMMARY | 2024-12-16 12:15 | XMS_ITS | Encounter Summary ---
Author Organization [facility] Address [address] [place] [address] Care Team Providers Care General Utility Maintenance Repairer Name Role Phone Davy Lua MD Unavailable [phone] Bhavya Malloy Primary Care Provider [phone] Encounter Details Date Type Department Care Team (Late st Contact Info) Description 10/23/2024 Ophth Exam [facility] - Ophthalmology [address] [place] [phone] Josue Obando, DO [address] [facility] [place] [address] Social History Tobacco Use Types Packs/Day Years Used Date Smoking Tobacco: Never Smokeless Tobacco: Never Alcohol Use Standard Drinks/Week Comments Never 0 (1 standard drink = 0.6 oz pur e alcohol) AUDIT-C Answer Date Recorded Q1: How often do you have a drink containing alcohol? Never 10/23/2024 Q2: How many drinks containi ng alcohol do you have on a typical day when you are drinking? Patient does not drink Q3: How often do you have si x or more drinks on one occasion? Never 10/23/2024 PHQ-2 Answer Date Recorded Patient Health Questionnaire-2 Score 0 07/25/2024 Sex and Gender Information Value Date Recorded Sex Assigned at Not on file Gender Identity Not on file Sexual Orientation Not on file documented as of this encounter Plan of Treatment Upcoming Encounters Date Type Department Care Team (Late st Contact Info) Description 01/05/2025 9:00 AM CDT Office Visit [facility] - Neurology [address] [place] [address], [place] [address] Agnes Hopper MD [address] [place] [address] 01/11/2025 12:00 PM CDT Office Visit [facility] - Neurology [address] [place] [address], [place] [phone] Edwin Blanchard MD [address] [place] [address] [place] [phone] 02/05/2025 9:15 AM CDT Office Visit [facility] - Nephrology [address] [place] [address], [place] [address] Rafita Kitchen MD [address] [place] [phone] documented as of this encounter Goals Goal Patient Goal Type Associated Problems Recent Progress Patient-Stated? Author Medication Management General On track( 024 8:32 AM NURSERYMAN ASSISTANT) Harmony Sanchez, NEMO Note: Expected end date: ongoing Interventions: Take all medications as prescribed documented as of this encounter Visit Diagnoses Not on filedocumented in this encounter Care Teams General Utility Maintenance Repairer Relationship Specialty Start Date End Date Bhavya Malloy [address] [place] [phone] PCP - General 07/25/24 Davy Lua MD [address] [place] [address] [address] [place] [address] 02/11/17 documented as of this encounter
--- OUTSIDE RECORDS SUMMARY | 2024-12-16 12:15 | XMS_ITS | Clinical Summary ---
Author Organization [facility] Address [address], [address] [address] Phone Care Team Providers Care Fire Alarm Inspector Name Role Phone Bhavya Malloy COIN MACHINE COLLECTOR SUPERVISOR, CYTOLOGY MANAGER Primary Care Provider [phone] Allergies No known active allergies Medications dicyclomine (BENTYL) 20 MG Tablet Take 1 Tablet by mouth every 6 hours as needed for Other. 20 Tablet 02/29/2024 Active ondansetron (ZOFRAN-ODT) 4 MG TABLET DISPERSIBLE Take 1 Tablet by mouth every 8 hours as needed for Nausea - 1st line. 10 Tablet 02/29/2024 Active Social History Tobacco Use Types Packs/Day Years Used Date Smoking Tobacco: Never Smokeless Tobacco: Never Tobacco Cessation:Counseling Given: Not Answered Alcohol Use Standard Drinks/Week Comments Yes 0 (1 standard drink = 0.6 oz pur e alcohol) occasionally Comments No Sex and Gender Information Value Date Recorded Sex Assigned at Not on file Legal Sex Female 11:15 AM PAD MACHINE FEEDER Gender Identity Not on file Sexual Orientation Not on file Last Filed Vital Signs Vital Sign Reading Time Taken Comments Blood Pressure 135/76 02/29/2024 10:00 PM CDT Pulse 98 02/29/2024 10:00 PM CDT Temperature 36 C (96.8 F) 02/29/2024 7:03 PM CDT Respiratory Rate 18 02/29/2024 7:03 PM CDT Oxygen Saturation 98% 02/29/2024 10:00 PM CDT Inhaled Oxygen Concentration - - Weight 93 kg (205 lb) 02/29/2024 7:03 PM CDT Height 160 cm (5' 3 ) 02/29/2024 7:03 PM CDT Body Mass Index 36.31 02/29/2024 7:03 PM CDT Plan of Treatment Health Maintenance Due Date Last Done Comments Hepatitis C Virus (HCV) Screening 1986 Hepatitis B Immunization (1 of 3 - 19+ 3-dose series) 2005 Influenza Immunization (#1) 05/21/202406/20, 06/11/2021, 06/13/2020, Additional history exists SARS-COV-2 Immunization ( season) 2024 07/08/2023, 01/13/2021, 12/23/2020 Respiratory Syncytial Virus (RSV) Immunization (Adult) (1 - 1-dose 75+ series) 2061 DTaP/Tdap/Td Immunization Discontinued 2019, 12/14/2017, 08/14/2015 TdaP Immunization Completed 09/04/2020, , 08/14/2015 Meningococcal Immunization (ACWY) Aged Out No longer eligible based on patient's age to complete this topic Pneumococcal Immunization Combined Aged Out No longer eligible based on patient's age to complete this topic Rotavirus Immunization Aged Out No lo nger eligible based on patient's age to complete this topic Insurance [facility] Care Teams Fire Alarm Inspector Relationship Specialty Start Date End Date Bhavya Malloy, JUAN, CYTOLOGY MANAGER [address] [place] [address] PCP - General Advanced Practice Nurse 02/29/24
--- OUTSIDE RECORDS SUMMARY | 2024-12-16 12:15 | XMS_ITS | Continuity of Care Document ---
Author Organization [facility] Address [address] [place] [address] Phone Care Team Providers Care Principal Administrative Clerk Name Role Phone Unavailable Unavailable Unavailable Advance Directives Directive Yes / No Effective Date File Name No Information Encounters Encounter Description Practice Location Reason(s) For Visit Diagnoses Date Provider Providers Copied on Encounter [facility], [address] [facility], [place], [place], [id number], tel:[phone] [facility] OUTPATIENT No Information 6 No Information Referring Provider: KYLIE CASTILLO H, [address], [place], [address]. tel:[phone] Family History Family Member Type Diagnosis Age At Onset No Information Payers Payer name Insurance type Covered libertarian ID Authoriza tion(s) [facility] [id number] CI [id number] Social History Type Description Quantity Date Captured Comments Sex Female Smoking Status No Information Chief Complaint And Reason For Visit No Information History Of Present Illness Encounter Date Complaint History Of Prese nt Illness No Information Instructions Date Instruction Additional Infor mation No Information Assessments Type Assessment Date No Information
--- OUTSIDE RECORDS SUMMARY | 2024-12-16 12:15 | XMS_ITS | Encounter Summary ---
Author Organization [facility] Address [address] [place] [address] Care Team Providers Care Deputy Building Guard Name Role Phone Davy Lua MD Unavailable [phone] Bhavya Malloy Primary Care Provider [phone] Encounter Details Date Type Department Care Team (Late st Contact Info) Description 10/23/2024 Ophth Exam [facility] - Ophthalmology [address] [place] [phone] Sean Salvador MD [address] [place] [address] Social History Tobacco Use Types Packs/Day Years [...] Office Visit [facility] - Neurology [address] [place] [address], [place] [address] Agnes Hopper MD [address] [place] [address] 01/11/2025 12:00 PM CDT Office Visit [facility] - Neurology [address] [place] [address], [place] [phone] Edwin Blanchard MD [address] [place] [address] [place] [address] 02/05/2025 9:15 AM CDT Office Visit [facility] - Nephrology [address] [place] [address], [place] [address] Rafita Kitchen MD [address] [place] [phone] documented as of this encounter Goals Goal Patient Goal Type Associated Problems Recent Progress Patient-Stated? Author Medication Management General On track( 024 8:32 AM DYE PADDER OPERATOR) Harmony Sanchez, NEMO Note: Expected end date: ongoing Interventions: Take all medications as prescribed documented as of this encounter Visit Diagnoses Not on filedocumented in this encounter Care Teams Deputy Building Guard Relationship Specialty Start Date End Date Bhavya Malloy [address] [place] [phone] PCP - General 07/25/24 Davy Lua MD [address] [place] [address] [facility] [address] [place] [address] 02/11/17 documented as of this encounter
--- OUTSIDE RECORDS SUMMARY | 2024-12-16 12:15 | XMS_ITS | Clinical Summary ---
Author Organization 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,non-owned Affiliates and Associated Physician Practices is amultiple site organization consisting of ambulatory clinics and hospital sitesin [place], [place], [place] and [place]. This disclosure is being madepursuant to the Care Everywhere program and may not contain all information available regarding this patient. Last updated 18.[facility] [place] Allergies No known active allergies Medications * Be aware that medications may not be up to date on this document. Alwaysverify current medications with the patient. Medication Sig Dispensed Refills Start Date End Date Status Famotidine (PEPCID AC PO) Active BABY ASPIRIN PO Take 81 mg by mouth once daily Active pantoprazole EC (Protonix) 40 MG tablet Take 1 (one) tablet by mouth daily before breakfast Active sertraline (Zoloft) 100 MG tablet Take 2 (two) tablets by mouth once daily Active BD Integra Syringe 25G X 1 3 ML MISC as directed 06/03/2023 Active cyanocobalamin (Vitamin B-12) injection INJECT 1 ML UNDER THE SKIN EVERY MONTH DIRECTED FOR 90 DAYS 07/07/2024 Active lurasidone (Latuda) 40 MG tablet Take 1 (one) tablet by mouth once daily 07/07/2024 Active acetaminophen (Tylenol) 325 MG tablet Take 1 (one) tablet by mouth as needed for Fever or Pain Maximum allowable Acetaminophen amount = 4 Grams (4000 mg) / 24 hours. Active Methylphenidate HCl (methylphenidate CR) 54 MG tablet Take 1 (one) tablet by mouth every morning Active buPROPion XL 24hr (Wellbutrin-XL) 300 MG tablet Take 1 (one) tablet by mouth once daily 08/25/2024 Active Orilissa 150 MG tablet Take 1 (one) tablet by mouth once daily Active vitamin D, ergocalciferol, (Drisdol) 1.25 MG (27070 UT) capsule TAKE 1 CAPSULE BY MOUTH EVERY WEEK DIRECTED 08/25/2024 Active meclizine (Antivert) 25 MG tablet CHEW AND SWALLOW 1 TABLET BY MOUTH 2 TO 3 TIMES PER DAY NEEDED FOR DIZZINESS FOR 5 DAYS 10/18/2024 Active acetaZOLAMIDE ER 12hr (Diamox Sequel) 500 MG capsule Take 2 (two) capsules by mouth 2 times daily 120 capsule 3 11/03/2024 03/03/2025 Active Active Problems Problem Noted Date Diagnosed Date Hypophosphatemia 10/23/2024 Generalized headache 10/23/2024 Papilledema of both eyes 10/23/2024 CKD (chronic kidney disease) stage 3, GFR 30-59 ml/min 08/08/2024 Anxiety Depression Venous vascular malformations Encounters Date Type Department Care Team Description 11/13/2024 8:30 AM RN ER Office Visit [facility] - Ophthalmology [address] [place] [phone] Neil Diez MD IIH (idiopathic intracranial hypertension) (Primary Dx) 11/13/2024 8:15 AM RN ER Clinical Support [facility]mology [address] [place] [phone] Neil Diez MD IIH (idiopathic intracranial hypertension) (Primary Dx) 11/13/2024 8:10 AM RN ER Clinical Support [facility] Ophthalmology [address] [place] [phone] Neil Diez MD II (idiopathic intracranial hypertension) (Primary Dx) 11/13/2024 8:05 AM RN ER Clinical Support [facility] - Ophthalmology [address] [place] [phone] Neil Diez MD II (idiopathic intracranial hypertension) (Primary Dx) 11/13/2024 Travel 11/03/2024 Telephone [facility] - Ophthalmology [address] [place] [phone] Neil Diez MD Question 10/30/2024 11:20 AM RN ER Clinical Support [facility] - Ophthalmology [address] [place] [phone] Neil Diez MD Optic disc edema (Primary Dx) 10/30/2024 11:15 AM RN ER Clinical Support [facility] - Ophthalmology [address] [place] [phone] Neil Diez MD Optic disc edema (Primary Dx) 10/30/2024 11:10 AM RN ER Clinical Support [facility] - Ophthalmology [address] [place] [phone] Neil Diez MD Optic disc edema (Primary Dx) 10/30/2024 10:30 AM RN ER Office Visit [facility] - Ophthalmology [address] [place] [phone] Neil Diez MD II (idiopathic intracranial hypertension) (Primary Dx); Optic disc edema 10/30/2024 Orders Only [facility] - Neurology [address] [place] [phone] Shannen Leung MD 10/30/2024 Travel 10/24/2024 9:00 AM RN ER Clinical Support [facility] Ophthalmology [address] [place] [phone] Neil Diez MD Optic disc edema (Primary Dx) 10/24/2024 8:50 AM RN ER Clinical Support [facility] [address] [place] [phone] Neil Diez MD Optic disc edema (Primary Dx) 10/24/2024 8:45 AM RN ER Clinical Support [facility] - Ophthal[facility] [address] [place] [phone] Neil Diez MD Optic disc edema (Primary Dx) 10/24/2024 8:40 AM RN ER Clinical Support [facility] Ophthal[facility] [address] [place] [phone] Neil Diez MD Optic disc edema (Primary Dx) 10/23/2024 5:21 AM RN ER - 10/24/2024 11:56 AM RN ER Emergency [facility] [address] [place] [address] Derek Mcfarland MD Yogendran, Rajiv L, MD Hayat, Ghazala S, MD Papilledema of both eyes (Primary Dx); Generalized headache; Hypophosphatemia; Idiopathic intracranial hypertension Discharge Disposition: Home or Self Care 10/23/2024 Ophth Exam [facility] - [facility]mology [address] [place] [phone] Josue Obando DO 10/23/2024 Ophth Exam [facility] [address] [place] [phone] Sean Salvador MD 10/22/2024 Travel from Last 3 Months Family History Medical History Relation Name Comments Hypertension Father Cataract Maternal Grandmother Glaucoma Maternal Grandmother Hypertension Mother Blindness Neg Hx Macular Degeneration Neg Hx Relation Name Status Comments Father Maternal Grandmother Mother Social History Tobacco Use Types Packs/Day Years Used Date Smoking Tobacco: Never Smokeless Tobacco: Never Tobacco Cessation:Counseling Given: Not Answered Alcohol Use Standard Drinks/Week Comments Never 0 [...] Sign Reading Time Taken Comments Blood Pressure 120/74 10/24/2024 9:49 AM RN ER Pulse 89 10/24/2024 9:49 AM RN ER Temperature 36.6 C (97.9 F) 10/24/2024 9:49 AM RN ER Respiratory Rate 20 10/24/2024 9:49 AM RN ER Oxygen Saturation 97% 10/24/2024 9:49 AM RN ER Inhaled Oxygen Concentration - - Weight 93.4 kg (205 lb 14.6 oz) 025 11:52 AM RN ER Height 157.5 cm (5' 2.01 ) 10/23/2024 1 1:52 AM RN ER Body Mass Index 37.65 10/23/2024 11:52 AM RN ER Plan of Treatment Upcoming Encounters Date Type Department Care Team (Late st Contact Info) Description 01/05/2025 9:00 AM CDT Office Visit [facility] - Neurology [address] [place] [phone] Agnes Hopper MD [address] [place] [address] 01/11/2025 12:00 PM CDT Office Visit [facility] - Neurology [address] [place] [phone] Edwin Blanchard MD [address] [place] [address] [place] [phone] 02/05/2025 9:15 AM CDT Office Visit [facility] - Nephrology [address] [place] [phone] Rafita Kitchen MD [address] [place] [phone] Health Maintenance Due Date Last Done Comments PAP SMEAR 1986 HIV SCREENING 2001 DTAP/TDAP/TD VACCINES (1 - Tdap) 2005 HEPATITIS B VACCINE (1 of 3 - 19+ 3-dose series) 2005 DEPRESSION SCREENING 09/20/2024 07/25/2024 ZOSTER VACCINE (1 of 2) 2036 HEPATITIS C SCREENING Completed 07/25/2024 COVID-19 VACCINE Completed 08/01/2024, , 01/13/2021, Additional history exists INFLUENZA VACCINE Completed 08/01/2024, , 06/11/2021, Additional history exists HIB VACCINE Aged Out No longer eligi ble based on patient's age to complete this topic HPV VACCINE Aged Out No longer eligi ble based on patient's age to complete this topic MENINGOCOCCAL (Group B) VACCINE SHARED DECISION-MAKING Aged Out No longer eligible based on patient's age to complete this topic MENINGOCOCCAL GROUPS A/C/Y/W VACCINE Aged Out No longer eligible based on patient's age to complete this topic PNEUMOCOCCAL VACCINE Aged Out No long er eligible based on patient's age to complete this topic Goals Goal Patient Goal Type Associated Problems Recent Progress Patient-Stated? Author Medication Management General On track( 024 8:32 AM RN ER) Harmony Sanchez, NEMO Note: Expected end date: ongoing Interventions: Take all medications as prescribed Procedures Procedure Name Priority Date/Time Associated Diagnosis Comments FUNDUS PHOTO BOTH EYES Routine 11/13/2024 8:02 AM RN ER IIH (idiopathic intracranial hypertension) VARGAS AUTO VISUAL FIELD EXTENDED Routine 11/13/2024 8:02 AM RN ER IIH (idiopathic intracranial hypertension) OPTIC NERVE ANALYSIS OCT Routine 11/13/2024 8:02 AM RN ER IIH (idiopathic intracranial hypertension) FUNDUS PHOTO BOTH EYES Routine 10/30/2024 11:07 AM RN ER Optic disc edema OPTIC NERVE ANALYSIS OCT Routine 10/30/2024 11:07 AM RN ER Optic disc edema VARGAS AUTO VISUAL FIELD EXTENDED Routine 10/30/2024 11:07 AM RN ER Optic disc edema PHOSPHORUS BLOOD STAT 10/24/2024 5:34 AM RN ER Papilledema of both eyes MAGNESIUM BLOOD STAT 10/24/2024 5:34 AM RN ER Papilledema of both eyes BASIC METABOLIC PANEL (CALCIUM TOTAL) STAT 10/24/2024 5:34 AM RN ER Papilledema of both eyes CBC W/O DIFFERENTIAL STAT 10/24/2024 5:34 AM RN ER Papilledema of both eyes MRI ANGIO BRAIN VENOUS WWO CONT STAT 10/23/2024 5:54 PM RN ER Papilledema of both eyes Generalized headache Hypophosphatemia MRI ORBITS OR FACE WWO CONTRAST STAT 10/23/2024 5:54 PM RN ER Papilledema of both eyes OLIGOCLONAL BANDS CSF+BLOOD PANEL STAT 10/23/2024 4:33 PM RN ER Papilledema of both eyes FL LUMBAR PUNCTURE Routine 10/23/2024 4: 17 PM RN ER Papilledema of both eyes HOLD SPECIMEN CSF STAT 10/23/2024 4:1 1 PM RN ER Papilledema of both eyes MYELIN BASIC PROTEIN CSF STAT 10/23/2024 4:11 PM RN ER Papilledema of both eyes IGA CSF STAT 10/23/2024 4:11 PM RN ER Papilledema of both eyes CELL COUNT W DIFFERENTIAL CSF STAT 10/23/2024 4:11 PM RN ER Papilledema of both eyes PROTEIN CSF STAT 10/23/2024 4:11 PM RN ER Papilledema of both eyes GLUCOSE CSF STAT 10/23/2024 4:11 PM RN ER Papilledema of both eyes CULTURE CSF+GRAM STAIN STAT 10/23/2024 4:11 PM RN ER Papilledema of both eyes MRI BRAIN WWO CONTRAST STAT 10/22/2024 5:41 PM RN ER Papilledema of both eyes CT HEAD WO CONTRAST STAT 10/22/2024 5 :06 PM RN ER Papilledema of both eyes HCG BETA BLOOD QUANTITATIVE STAT 10/22/2024 4:48 PM RN ER PHOSPHORUS BLOOD STAT 10/22/2024 4:48 PM RN ER MAGNESIUM BLOOD STAT 10/22/2024 4:48 PM RN ER CBC W AUTO DIFFERENTIAL STAT 10/22/2024 4:48 PM RN ER COMPREHENSIVE METABOLIC PANEL STAT 10/22/2024 4:48 PM RN ER HEPATITIS C ANTIBODY Routine 07/25/2024 9:54 AM RN ER Polyarthralgia Chronic kidney disease, unspecified CKD stage Chronic fatigue from Last 3 Months or Most Recently Relevant to Health Maintenance Results * FUNDUS PHOTO BOTH EYES (11/13/2024 8:02 AM RN ER) Anatomical Region Laterality Modality Head External-Camera Photography Narrative 11/13/2024 9:34 AM RN ER Images from the original result were not included. OD ON slight blurred margins , normal vessels OS NFL myelinted fibers , normal vessels Neil Diez MD OPHTHALMOLOGY SCHED ORD W PACS * VARGAS AUTO VISUAL FIELD EXTENDED (11/13/2024 8:02 AM RN ER) Anatomical Region Laterality Modality Head External-Camera Photography Narrative 11/13/2024 9:34 AM RN ER Images from the original result were not included. OD Reliable , Full OS Low reliability due to high fixation loses , FT 35, scattered points no clear pattern mainly full Neil Diez MD OPHTHALMOLOGY SCHED ORD W PACS * OPTIC NERVE ANALYSIS OCT (11/13/2024 8:02 AM RN ER) Anatomical Region Laterality Modality Head External-Camera Photography Narrative 11/13/2024 9:35 AM RN ER Images from the original result were not included. OD Normal Average RNFL with some area elevation inf , STABLE OS Normal average RNFL with areas of focal thinning superiorly and inferiorly and elevation temp and nasally , Unreliable OS due to NFL myelinted fibers, Improved Neil Diez MD OPHTHALMOLOGY SCHED ORD W PACS * FUNDUS PHOTO BOTH EYES (10/30/2024 11:07 AM RN ER) Anatomical Region Laterality Modality Head External-Camera Photography Neil Diez MD OPHTHALMOLOGY SCHED ORD W PACS * OPTIC NERVE ANALYSIS OCT (10/30/2024 11:07 AM RN ER) Anatomical Region Laterality Modality Head External-Camera Photography Narrative 10/30/2024 7:25 PM RN ER Images from the original result were not included. 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 No significant elevation or atrophy OD Neil Diez MD OPHTHALMOLOGY SCHED ORD W PACS * VARGAS AUTO VISUAL FIELD EXTENDED (10/30/2024 11:07 AM RN ER) Anatomical Region Laterality Modality Head External-Camera Photography Narrative 10/30/2024 7:25 PM RN ER Images from the original result were not included. Enlarged blind spot OS. Full field OD Neil Diez MD OPHTHALMOLOGY SCHED ORD W PACS * CBC W/O DIFFERENTIAL (10/24/2024 5:34 AM [facility]) WBC 6.4 4.0 - 10.7 x10E9/L 10/24/2024 5:51 AM [facility] RBC Count 4.86 3.90 - 5.20 x10E12/L 10/24/2024 5:51 AM [facility] Hemoglobin 14.5 11.9 - 15.8 g/dL 10/24/2024 5:51 AM [facility] Hematocrit 43.1 34.8 - 46.1 % 10/24/2024 5:51 AM [facility] MCV 88.7 80.0 - 98.0 fL 10/24/2024 5:51 AM [facility] MCH 29.8 26.7 - 33.6 pg 10/24/2024 5:51 AM [facility] MCHC 33.6 31.7 - 36.3 g/dL 10/24/2024 5:51 AM [facility] RDW-CV 13.8 11.3 - 14.8 % 10/24/2024 5:51 AM [facility] Platelet Count 247 150 - 420 x10E9/L 10/24/2024 5:51 AM [facility] MPV 10.4 7.8 - 11.4 fL 10/24/2024 5:51 AM [facility] Blood BLOOD SPECIMEN / Unknown Venipuncture / Unknown 10/24/2024 5:34 AM [facility] 10/24/2024 5:45 AM [facility] Kaylie Rivas MD LAB - HEMATOLOGY ORD ERABLES [facility] [address] [place] [address], [facility] [phone] * (ABNORMAL) BASIC METABOLIC PANEL (CALCIUM TOTAL) (10/24/2024 5:34 AM [facility]) Pathologist [facility] BUN 15 7 - 26 mg/dL 10/24/2024 6:08 AM [facility] Creatinine 1.11(H) 0.56 - 0.96 mg/dL 10/24/2024 6:08 AM [facility] Sodium 137 136 - 145 mmol/L 10/24/2024 6:08 AM [facility] Potassium 4.0 3.5 - 4.5 mmol/L 10/24/2024 6:08 AM [facility] Chloride 110(H) 98 - 107 mmol/L 10/24/2024 6:08 AM [facility] CO2 17(L) 22 - 29 mmol/L 10/24/2024 6:08 AM [facility] Glucose 112(H) 70 - 99 mg/dL 10/24/2024 6:08 AM [facility] Calcium 9.1 8.4 - 10.2 mg/dL 10/24/2024 6:08 AM [facility] Anion Gap 10 6 - 16 10/24/2024 6:08 AM [facility] BUN/Creatinine Ratio 14 7 - 23 10/24/2024 6:08 AM [facility] Osmolality Calculated 286 275 - 295 mOsm/kg 10/24/2024 6:08 AM [facility] eGFR by CKD-EPI 65(L) >=90 mL/min/1.7 3 m2 10/24/2024 6:08 AM [facility] Blood BLOOD SPECIMEN / Unknown Venipuncture / Unknown 10/24/2024 5:34 AM RN ER 10/24/2024 5:48 AM RN ER Kaylie Rivas MD LAB - CHEMISTRY ORDIsela MORENO [facility] Organization Address City/State/ZIP Co de Phone Number [facility] [address] [place] [address], [facility] [phone] * PHOSPHORUS BLOOD (10/24/2024 5:34 AM RN ER) Only the most recent of2 resultswithin the time period is included. Phosphorus 4.5 2.9 - 5.1 mg/dL 10/24/2024 6:14 AM [facility] Blood BLOOD SPECIMEN / Unknown Venipuncture / Unknown 10/24/2024 5:34 AM RN ER 10/24/2024 5:48 AM RN ER Kaylie Rivas MD LAB - CHEMISTRY BARBARA MORENO Performing Organization Address [facility]/ZIP Co de Phone Number [address] [address], [facility] [phone] * MAGNESIUM BLOOD (10/24/2024 5:34 AM RN ER) Only the most recent of2 resultswithin the time period is included. Magnesium 2.2 1.6 - 2.6 mg/dL 10/24/2024 6:08 AM RN ER [facility] Blood BLOOD SPECIMEN / Unknown Venipuncture / Unknown 10/24/2024 5:34 AM RN ER 10/24/2024 5:48 AM RN ER Kaylie Rivas MD LAB - CHEMISTRY BARBARA MORENO Performing Organization Address [facility] Co de Phone Number [address] [address], [facility] [phone] * MRI Angio Brain Venous Wwo Cont (10/23/2024 5:54 PM RN ER) Anatomical Region Laterality Modality Head Magnetic Resonan ce 10/23/2024 5:59 PM RN ER Impressions 10/23/2024 6:19 PM RN ER IMPRESSION: 1.The optic nerve sheaths is are not significantly dilated. Previously seen optic disc cupping appears slightly less conspicuous compared to the prior, perhaps related to recent lumbar puncture and CSF withdrawal. 2.Otherwise, no evidence of acute MRI findings in the orbits. 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 Findings could be further evaluated with Doppler ultrasound of the neck veins. 4.Otherwise, no evidence of dural venous sinus stenosis. 5.No evidence of dural sinus thrombosis. > Interpreting Provider: Laci Bird MD on 10/23/2024 6:19 PM Narrative 10/23/2024 6:19 PM RN ER PROCEDURE: MRI ORBITS OR FACE WWO CONTRAST, MRI ANGIO BRAIN VENOUS WWO CONT, DATE/TIME OF EXAM: 10/23/2024 5:54 PM, LOCATION [facility] INDICATION: H47.10: Papilledema of both eyes ADDITIONAL CLINICAL INFORMATION: Ordering Provider Reason For Exam: IIH, papilledema (accession [id number]), Optho recs (accession [id number]) Technologist Note: Does the patient have a pacemaker or defibrillator?->No Does the patient have metal implants or stents?->No Additional: None. CONTRAST: GADOBUTROL 1 MMOL/ML IV SSM SO:9 mL EXAMINATION: 1.MRI of the orbits without and with contrast 2.Magnetic resonance venography (MRV) of the head with contrast HISTORY: H47.10: Papilledema of both eyes TECHNIQUE: 1.MRI of the orbits was performed prior to and following the uneventful administration of 9 mL intravenous GADAVIST contrast according to standard protocol. 2.MRV of the head was performed utilizing contrast enhanced time-resolved technique after the uneventful administration of 9 mL GADAVIST intravenous gadolinium contrast. COMPARISON: MRI of the brain from 10/22/2024. CT of the head from 1 10/22/2024. FINDINGS: Orbits: The globes and extraocular muscles appear normal. The lacrimal glands appear normal. The optic nerve sheaths is are not significantly dilated. Previously seen optic disc cupping appears slightly less conspicuous compared to the prior, perhaps related to recent lumbar puncture and CSF withdrawal. The optic nerves are otherwise grossly symmetric in size and signal. No abnormal enhancement is identified in either optic nerve. The optic chiasm and suprasellar cistern appear normal. Meckel's cave and the cavernous sinuses appear normal. There is minimal paranasal sinus disease. 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 The dural sinuses appear normal without evidence of thrombosis. The internal cerebral veins, veins of Roel, and visible portions of the internal jugular veins otherwise demonstrate normal laminar flow without evidence of thrombosis. Procedure Note Laci Bird MD - 10/23/2024 PROCEDURE: MRI ORBITS OR FACE WWO CONTRAST, MRI ANGIO BRAIN VENOUS WWO CONT, DATE/TIME OF EXAM: 10/23/2024 5:54 PM, LOCATION [facility] INDICATION: H47.10: Papilledema of both eyes ADDITIONAL CLINICAL INFORMATION: Ordering Provider Reason For Exam: IIH, papilledema ([id number]), Optho recs (accession [id number]) Technologist Note: Does the patient have a pacemaker ordefibrillator?->No Does the patient have metal implants or stents?->No Additional: None. CONTRAST: GADOBUTROL 1 MMOL/ML IV SSM SO:9 mL EXAMINATION: 1.MRI of the orbits without and with contrast 2.Magnetic resonance venography (MRV) of the head with contrast HISTORY: H47.10: Papilledema of both eyes TECHNIQUE: 1.MRI of the orbits was performed prior to and following the uneventful administration of 9 mL intravenous GADAVIST contrast according tostandard protocol. 2.MRV of the head was performed utilizing contrast enhancedtime-resolved technique after the uneventful administration of 9 mL GADAVISTintravenous gadolinium contrast. COMPARISON: MRI of the brain from 10/22/2024. CT of the head from 08/21/2025. FINDINGS: Orbits: The globes and extraocular muscles appear normal. The lacrimal glands appear normal. The optic nerve sheaths is are not significantlydilated. Previously seen optic disc cupping appears slightly less conspicuous compared to the prior, perhaps related to recent lumbar puncture and CSF withdrawal. The optic nerves are otherwise grossly symmetric in size and signal. No abnormal enhancement is identified in either optic nerve. The optic chiasm and suprasellar cistern appear normal. Meckel's cave andthe cavernous sinuses appear normal. There is minimal paranasal sinusdisease. 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 The dural sinuses appear normal without evidence of thrombosis. The internal cerebral veins, veins of Roel, and visible portions of the internal jugular veins otherwise demonstrate normal laminar flow without evidence of thrombosis. IMPRESSION: 1.The optic nerve sheaths is are not significantly dilated. Previouslyseen optic disc cupping appears slightly less conspicuous compared to theprior, perhaps related to recent lumbar puncture and CSF withdrawal. 2.Otherwise, no evidence of acute MRI findings in the orbits. 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 Findings could be further evaluated with Doppler ultrasound of the neck veins. 4.Otherwise, no evidence of dural venous sinus stenosis. 5.No evidence of dural sinus thrombosis. > Interpreting Provider: Laci Bird MD on 10/23/2024 6:19 PM Austin Drummond MD MR ORDERABLES * MRI Orbits or Face Wwo Contrast (10/23/2024 5:54 PM RN ER) Anatomical Region Laterality Modality Head Magnetic Resonan ce 10/23/2024 5:59 PM RN ER Impressions 10/23/2024 6:19 PM RN ER IMPRESSION: 1.The optic nerve sheaths is are not significantly dilated. Previously seen optic disc cupping appears slightly less conspicuous compared to the prior, perhaps related to recent lumbar puncture and CSF withdrawal. 2.Otherwise, no evidence of acute MRI findings in the orbits. 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 Findings could be further evaluated with Doppler ultrasound of the neck veins. 4.Otherwise, no evidence of dural venous sinus stenosis. 5.No evidence of dural sinus thrombosis. > Interpreting Provider: Laci Bird MD on 10/23/2024 6:19 PM Narrative 10/23/2024 6:19 PM RN ER PROCEDURE: MRI ORBITS OR FACE WWO CONTRAST, MRI ANGIO BRAIN VENOUS WWO CONT, DATE/TIME OF EXAM: 10/23/2024 5:54 PM, LOCATION [facility] INDICATION: H47.10: Papilledema of both eyes ADDITIONAL CLINICAL INFORMATION: Ordering Provider Reason For Exam: IIH, papilledema (accession [id number]), Optho recs (accession [id number]) Technologist Note: Does the patient have a pacemaker or defibrillator?->No Does the patient have metal implants or stents?->No Additional: None. CONTRAST: GADOBUTROL 1 MMOL/ML IV SSM SO:9 mL EXAMINATION: 1.MRI of the orbits without and with contrast 2.Magnetic resonance venography (MRV) of the head with contrast HISTORY: H47.10: Papilledema of both eyes TECHNIQUE: 1.MRI of the orbits was performed prior to and following the uneventful administration of 9 mL intravenous GADAVIST contrast according to standard protocol. 2.MRV of the head was performed utilizing contrast enhanced time-resolved technique after the uneventful administration of 9 mL GADAVIST intravenous gadolinium contrast. COMPARISON: MRI of the brain from 10/22/2024. CT of the head from 1 10/22/2024. FINDINGS: Orbits: The globes and extraocular muscles appear normal. The lacrimal glands appear normal. The optic nerve sheaths is are not significantly dilated. Previously seen optic disc cupping appears slightly less conspicuous compared to the prior, perhaps related to recent lumbar puncture and CSF withdrawal. The optic nerves are otherwise grossly symmetric in size and signal. No abnormal enhancement is identified in either optic nerve. The optic chiasm and suprasellar cistern appear normal. Meckel's cave and the cavernous sinuses appear normal. There is minimal paranasal sinus disease. 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 The dural sinuses appear normal without evidence of thrombosis. The internal cerebral veins, veins of Roel, and visible portions of the internal jugular veins otherwise demonstrate normal laminar flow without evidence of thrombosis. Procedure Note Laci Bird MD - 10/23/2024 PROCEDURE: MRI ORBITS OR FACE WWO CONTRAST, MRI ANGIO BRAIN VENOUS WWO CONT, DATE/TIME OF EXAM: 10/23/2024 5:54 PM, LOCATION [facility] INDICATION: H47.10: Papilledema of both eyes ADDITIONAL CLINICAL INFORMATION: Ordering Provider Reason For Exam: IIH, papilledema ([id number]), Optho recs (accession [id number]) Technologist Note: Does the patient have a pacemaker ordefibrillator?->No Does the patient have metal implants or stents?->No Additional: None. CONTRAST: GADOBUTROL 1 MMOL/ML IV SSM SO:9 mL EXAMINATION: 1.MRI of the orbits without and with contrast 2.Magnetic resonance venography (MRV) of the head with contrast HISTORY: H47.10: Papilledema of both eyes TECHNIQUE: 1.MRI of the orbits was performed prior to and following the uneventful administration of 9 mL intravenous GADAVIST contrast according tostandard protocol. 2.MRV of the head was performed utilizing contrast enhancedtime-resolved technique after the uneventful administration of 9 mL GADAVISTintravenous gadolinium contrast. COMPARISON: MRI of the brain from 10/22/2024. CT of the head from 08/21/2025. FINDINGS: Orbits: The globes and extraocular muscles appear normal. The lacrimal glands appear normal. The optic nerve sheaths is are not significantlydilated. Previously seen optic disc cupping appears slightly less conspicuous compared to the prior, perhaps related to recent lumbar puncture and CSF withdrawal. The optic nerves are otherwise grossly symmetric in size and signal. No abnormal enhancement is identified in either optic nerve. The optic chiasm and suprasellar cistern appear normal. Meckel's cave andthe cavernous sinuses appear normal. There is minimal paranasal sinusdisease. 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 The dural sinuses appear normal without evidence of thrombosis. The internal cerebral veins, veins of Roel, and visible portions of the internal jugular veins otherwise demonstrate normal laminar flow without evidence of thrombosis. IMPRESSION: 1.The optic nerve sheaths is are not significantly dilated. Previouslyseen optic disc cupping appears slightly less conspicuous compared to theprior, perhaps related to recent lumbar puncture and CSF withdrawal. 2.Otherwise, no evidence of acute MRI findings in the orbits. 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 Findings could be further evaluated with Doppler ultrasound of the neck veins. 4.Otherwise, no evidence of dural venous sinus stenosis. 5.No evidence of dural sinus thrombosis. > Interpreting Provider: Laci Bird MD on 10/23/2024 6:19 PM Kaylie Rivas MD MR ORDERABLES * (ABNORMAL) OLIGOCLONAL BANDS CSF+BLOOD PANEL (10/23/2024 4:33 PM RN ER) Oligoclonal Bands Negative Negative 025 11:12 PM RN ER [facility] ([facility]) Oligoclonial Bands Number 0 0 - 1 Bands 10/27/2024 11:12 PM RN ER [facility] ([facility]) IgG 709(L) 768 - 1632 mg/dL 10/27/2024 11:12 PM RN ER [facility] ([facility]) IgG CSF 2.6 0.0 - 6.0 mg/dL 10/27/2024 11:12 PM RN ER [facility] ([facility]) Albumin 3473(L) 3500 - 5200 mg/dL 10/27/2024 11:12 PM RN ER [facility] ([facility]) Albumin CSF 21 0 - 35 mg/dL 10/27/2024 11:12 PM RN ER [facility] ([facility]) Albumin Index 6.0 0.0 - 9.0 ratio 10/27/2024 11:12 PM [facility] ([facility]) IgG Index 0.61 0.28 - 0.66 ratio 10/27/2024 11:12 PM [facility]) IgG/Albumin Ratio CSF 0.12 0.09 - 0.25 ratio 10/27/2024 11:12 PM [facility] ([facility]) Synthesis Rate 0.8 <=8.0 mg/d 10/27/2024 11:12 PM [facility] ([facility]) Interpretation Oligoclonial See Note 10/27/2024 11:12 PM [facility] ([facility]) Comment: Isoelectric focusing/immunofixation revealed no oligoclonal bands in either the CSF or the serum. This is considered to be a negative result for oligoclonal bands. Approximately 5 percent of patients with clinically definitive multiple sclerosis will have a negative result. INTERPRETIVE INFORMATION: Oligoclonal Band Profile To ensure accurate result interpretation, it is recommended that both CSF and serum specimens be collected on the same day. If specimens are not collected within this specified timeframe, it is advised to exercise caution when interpreting the results. Performed By: [facility] [address] [place] [address] Dampener Operator: Gonsalo Nolan MD, PhD CLIA Number: [id number] Other MISCELLANEOUS SAMPLES / Unknown Collection / Unknown 10/23/2024 4:33 PM RN ER 10/23/2024 4:33 PM RN ER Kaylie Rivas MD LAB - BODY FLUID ORD ERABLES [facility]) [address] [place] [address], [facility] * FL Lumbar Puncture (10/23/2024 4:17 PM RN ER) Anatomical Region Laterality Modality Spine Digital Radiogra phy 10/23/2024 4:28 PM RN ER Impressions 10/24/2024 6:34 PM RN ER IMPRESSION: 1.Successful lumbar puncture under fluoroscopic guidance at L3-L4. 2.Opening Pressure: 24 cm H2O The report is dictated by Eloy Ramirez MD, (vice president of finance) Attending Physician: Dr. Laci Bird [employer] Team Technician: Dr. Eloy Ramirez MD, MD (vice president of finance) The procedure was performed by the: The surgical dental assistant, and the attending radiologist was present for all critical and dumont portions of the procedure, and was immediately available to furnish services during the entire procedure. The attending radiologist performed the following procedural activities: IDr. Laci was there and supervised dumont portions of the procedure, not scrubbed. ILaci MD have personally reviewed and interpreted this examination/study. > Interpreting Provider: Laci Bird MD on 10/24/2024 6:34 PM Narrative 10/24/2024 6:34 PM RN ER PROCEDURE: FL LUMBAR PUNCTURE DATE/TIME OF EXAM: 10/23/2024 4:21 PM LOCATION [facility] CLINICAL INFORMATION: None relevant/not provided if blank. Indication: H47.10: Papilledema of both eyes Additional History: None. ADDITIONAL CLINICAL INFORMATION: Ordering Provider Reason For Exam: concern for IIH, need opening pressure and at least 30cc of CSF. BMI 37, poor body habitus for bedside LP EXAMINATION: Diagnostic lumbar puncture (LP) under fluoroscopic guidance TECHNIQUE: The risks and benefits of the lumbar puncture including, but not limited to, infection, bleeding, seizure, epidural hematoma, post spinal headache, cerebrospinal fluid (CSF) leak requiring blood patch procedure, nausea, vomiting, irritation or damage to nerves causing pain or permanent injury were discussed with the patient. After alternatives were discussed and the opportunity to ask questions was provided, the patient acknowledged understanding, gave verbal and written consent, and wished to proceed. Attending physician: Dr. Bird was present for the dumont portions of this procedure. The L3-4 level was localized with fluoroscopy. The skin overlying this level was then sterilely prepped, draped, and infiltrated with 1% lidocaine for local anesthesia. Under intermittent fluoroscopic guidance, a 20 gauge 3.5 inch spinal needle was inserted into the thecal sac at this level. Clear CSF was identified. A total of 30 ml of CSF was removed and placed into 4 specimen tubes. The patient tolerated the procedure well. The patient was then transferred to the day care worker unit for further observation and 2 hours of bedrest. OPENING PRESSURE: 24 cm H2O CLOSING PRESSURE: 14 cm H2O FLUOROSCOPY TIME: 0.5 minutes Procedure Note Laci Bird MD - 10/24/2024 PROCEDURE: FL LUMBAR PUNCTURE DATE/TIME OF EXAM: 10/23/2024 4:21 PM LOCATION [facility] CLINICAL INFORMATION: None relevant/not provided if blank. Indication: H47.10: Papilledema of both eyes Additional History: None. ADDITIONAL CLINICAL INFORMATION: Ordering Provider Reason For Exam: concern for IIH, need openingpressure and at least 30cc of CSF. BMI 37, poor body habitus for bedside LP EXAMINATION: Diagnostic lumbar puncture (LP) under fluoroscopic guidance TECHNIQUE: The risks and benefits of the lumbar puncture including, but not limited to, infection, bleeding, seizure, epidural hematoma, post spinal headache, cerebrospinal fluid (CSF) leak requiring blood patch procedure, nausea, vomiting, irritation or damage to nerves causing painor permanent injury were discussed with the patient. After alternativeswere discussed and the opportunity to ask questions was provided, the patient acknowledged understanding, gave verbal and written consent, and wishedto proceed. Attending physician: Dr. Bird was present for the dumont portions ofthis procedure. The L3-4 level was localized with fluoroscopy. The skin overlying this level was then sterilely prepped, draped, and infiltrated with 1%lidocaine for local anesthesia. Under intermittent fluoroscopic guidance, a 20gauge 3.5 inch spinal needle was inserted into the thecal sac at this level. Clear CSF was identified. A total of 30 ml of CSF was removed and placed into 4 specimen tubes. The patient tolerated the procedure well. The patient was then transferred to the day care worker unit for further observation and 2 hours of bedrest. OPENING PRESSURE: 24 cm H2O CLOSING PRESSURE: 14 cm H2O FLUOROSCOPY TIME: 0.5 minutes IMPRESSION: 1.Successful lumbar puncture under fluoroscopic guidance at L3-L4. 2.Opening Pressure: 24 cm H2O The report is dictated by Eloy Ramirez MD, MD (vice president of finance) Attending Physician: Dr. Laci Bird [employer] Team Technician: Dr. Eloy Ramirez MD, MD (vice president of finance) The procedure was performed by the: The surgical dental assistant, and the attending radiologist was present for allcritical and dumont portions of the procedure, and was immediately available [facility] services during the entire procedure. The attending radiologist performed the following procedural activities: I, Dr. Laci Oliveramoud was there and supervised dumont portions of the procedure, not scrubbed. I, Laci Bird MD have personally reviewed and interpretedthis examination/study. > Interpreting Provider: Laci Bird MD on 10/24/2024 6:34 PM Kaylie Rivas MD FLUOROSCOPY ORDERABL ES * HOLD SPECIMEN CSF (10/23/2024 4:11 PM RN ER) Specimen Hold Stored in fluid rack 10/23/2024 4:57 PM RN ER [facility] Cerebral spinal fluid CEREBROSPINAL FLUID SPECIMEN / Unknown Collection / Unknown 10/23/2024 4:11 PM RN ER 10/23/2024 4:33 PM RN ER Kaylie Rivas MD LAB - BODY FLUID ORD ERABLES [address] [address], [facility] [phone] * CULTURE CSF+GRAM STAIN (10/23/2024 4:11 PM RN ER) Culture No growth BHAVIK 10/30/2024 8:06 AM RN ER [facility] MICROBIOLOGY Gram Stain No organisms seen 025 8:06 AM RN ER [facility] MICROBIOLOGY Gram Stain Rare Polymorphonuclear cells 10/30/2024 8:06 AM RN ER [facility] MICROBIOLOGY Cerebral spinal fluid CEREBROSPINAL FLUID SPECIMEN / Unknown Collection / Unknown 10/23/2024 4:11 PM RN ER 10/23/2024 4:32 PM RN ER Kaylie Rivas MD LAB - MICROBIOLOGY O RDERABLES [facility] MICROBIOLOGY [address] [place] [address], [facility] [phone] * MYELIN BASIC PROTEIN CSF (10/23/2024 4:11 PM RN ER) Myelin Basic Protein 2.03 0.00 - 5.50 ng/mL 10/25/2024 3:24 PM RN ER [facility]) Comment: INTERPRETIVE INFORMATION: Myelin Basic Protein This test was developed and its performance characteristics determined by [facility]. It has not been cleared or approved by the [place] Food and Drug Administration. This test was performed in a CLIA certified laboratory and is intended for clinical purposes. Performed By: [place] [address] Dampener Operator: Gonsalo Nolan MD, PhD CLIA Number: [id number] Cerebral spinal fluid CEREBROSPINAL FLUID SPECIMEN / Unknown Collection / Unknown 10/23/2024 4:11 PM RN ER 10/23/2024 4:34 PM RN ER Kaylie Rivas MD LAB - BODY FLUID ORD ERAGILBERTO Performing Organization Address City/[facility]/ZIP Co de Phone Number [facility]) [address] [place] [address] * IGA CSF (10/23/2024 4:11 PM RN ER) IgA CSF 0.1 0.0 - 0.7 mg/dL 10/25/2024 2:12 AM RN ER [facility]) Comment: Performed By: [facility] [address] [place] [address] Dampener Operator: Gonsalo Nolan MD, PhD CLIA Number: [id number] Cerebral spinal fluid CEREBROSPINAL FLUID SPECIMEN / Unknown Collection / Unknown 10/23/2024 4:11 PM RN ER 10/23/2024 4:34 PM RN ER Kaylie Rivas MD LAB - BODY FLUID ORD ERABLES [facility]) [address] [place] [address] * (ABNORMAL) CELL COUNT W DIFFERENTIAL CSF (10/23/2024 4:11 PM RN ER) Tube Number [id number] 10/23/2024 4:58 PM RN ER [facility] Xanthochromia ABSENT ABSENT 10/23/2024 4:58 PM RN ER [facility] CSF Appearance CLEAR 10/23/2024 4:58 PM RN ER [facility] CSF Color COLORLESS 10/23/2024 4:58 PM RN ER [facility] Total Nucleated Cells CSF 2 <=5 x10E6/L 10/23/2024 4:58 PM RN ER [facility] RBC Count CSF 55(H) <1 x10E6/L 10/23/2024 4:58 PM RN ER [facility] Cerebral spinal fluid CEREBROSPINAL FLUID SPECIMEN / Unknown Collection / Unknown 10/23/2024 4:11 PM RN ER 10/23/2024 4:33 PM RN ER Kaylie Rivas MD LAB - BODY FLUID ORD ERABLES [address] [address], [place] [phone] * PROTEIN CSF (10/23/2024 4:11 PM RN ER) Protein CSF 26 15 - 45 mg/dL 10/23/2024 4:56 PM RN ER [facility] Cerebral spinal fluid CEREBROSPINAL FLUID SPECIMEN / Unknown Collection / Unknown 10/23/2024 4:11 PM RN ER 10/23/2024 4:33 PM RN ER Kaylie Rivas MD LAB - BODY FLUID ORD ERABLES [address] [address], [place] [phone] * GLUCOSE CSF (10/23/2024 4:11 PM RN ER) Glucose CSF 60 40 - 70 mg/dL 10/23/2024 4:56 PM RN ER [facility] Cerebral spinal fluid CEREBROSPINAL FLUID SPECIMEN / Unknown Collection / Unknown 10/23/2024 4:11 PM RN ER 10/23/2024 4:33 PM RN ER Kaylie Rivas MD LAB - BODY FLUID ORD ERABLES [address] [address], [place] [phone] * MRI Brain Wwo Contrast (10/22/2024 5:41 PM RN ER) Anatomical Region Laterality Modality Head Magnetic Resonan ce 10/22/2024 7:58 PM RN ER Impressions 10/22/2024 8:07 PM RN ER IMPRESSION: 1. No acute intracranial process. Specifically, no acute infarct or acute intracranial hemorrhage. No intracranial mass or hydrocephalus. 2. Reversal of the bilateral optic disc is consistent with papilledema. Partially empty sella. These findings may sometimes be seen in patient with idiopathic intracranial hypertension. Please correlate clinically. > Interpreting Provider: Jennifer Bermudez MD on 10/22/2024 8:07 PM Narrative 10/22/2024 8:07 PM RN ER PROCEDURE: MRI BRAIN WWO CONTRAST, DATE/TIME OF EXAM: 10/22/2024 5:48 PM, LOCATION [facility] INDICATION: H47.10: Papilledema of both eyes ADDITIONAL CLINICAL INFORMATION: Ordering Provider Reason For Exam: Papilledema on dilated pupil exam Technologist Note: Additional: TECHNIQUE: MRI of the brain was performed prior to and following the uneventful administration of intravenous contrast according to standard protocol. CONTRAST: GADOBUTROL 1 MMOL/ML IV SSM SO:8 mL COMPARISON: No prior study is available for comparison at the time of this dictation. FINDINGS: No evidence of acute cerebral infarction is seen. No evidence of acute or chronic hemorrhage is identified. The ventricles are of normal size, shape, and morphology. No mass effect or midline shift is seen. Other than a partially empty sella, the corpus callosum and sella appear normal. The posterior fossa, brainstem, and craniocervical junction appear normal. There is reversal of the bilateral optic disc, consistent with papilledema. Other than small mucus retention cysts in the maxillary sinuses, the visualized portions of the orbits, paranasal sinuses, and mastoids appear normal. Normal flow voids are demonstrated in the carotid arteries and basilar artery. The calvarium and visualized cervical spine appear normal. Small subcutaneous nodules in the right scalp may represent sebaceous cysts. Procedure Note Jennifer Bermudez MD - 10/22/2024 PROCEDURE: MRI BRAIN WWO CONTRAST, DATE/TIME OF EXAM: 10/22/2024 5:48PM, LOCATION [facility] INDICATION: H47.10: Papilledema of both eyes ADDITIONAL CLINICAL INFORMATION: Ordering Provider Reason For Exam: Papilledema on dilated pupil exam Technologist Note: Additional: TECHNIQUE: MRI of the brain was performed prior to and following the uneventful administration of intravenous contrast according to standard protocol. CONTRAST: GADOBUTROL 1 MMOL/ML IV SSM SO:8 mL COMPARISON: No prior study is available for comparison at the time ofthis dictation. FINDINGS: No evidence of acute cerebral infarction is seen. No evidence of acuteor chronic hemorrhage is identified. The ventricles are of normal size,shape, and morphology. No mass effect or midline shift is seen. Other than a partially empty sella, the corpus callosum and sella appear normal. The posterior fossa, brainstem, and craniocervical junction appear normal. There is reversal of the bilateral optic disc, consistent withpapilledema. Other than small mucus retention cysts in the maxillary sinuses, the visualized portions of the orbits, paranasal sinuses, and mastoidsappear normal. Normal flow voids are demonstrated in the carotid arteries and basilar artery. The calvarium and visualized cervical spine appearnormal. Small subcutaneous nodules in the right scalp may represent sebaceous cysts. IMPRESSION: 1. No acute intracranial process. Specifically, no acute infarct oracute intracranial hemorrhage. No intracranial mass or hydrocephalus. 2. Reversal of the bilateral optic disc is consistent with papilledema. Partially empty sella. These findings may sometimes be seen in patientwith idiopathic intracranial hypertension. Please correlate clinically. > Interpreting Provider: Jennifer Bermudez MD on 10/22/2024 8:07 PM Jos Gardiner MD MR ORDERABLES * CT HEAD WO CONTRAST (10/22/2024 5:06 PM RN ER) Anatomical Region Laterality Modality Head Computed Tomogra phy 10/22/2024 5:37 PM RN ER Impressions 10/22/2024 6:13 PM RN ER IMPRESSION: 1.No acute intracranial hemorrhage, midline shift, or significant mass effect. > Interpreting Provider: Laci Bird MD on 10/22/2024 6:13 PM Narrative 10/22/2024 6:13 PM RN ER PROCEDURE: CT HEAD WO CONTRAST, DATE/TIME OF EXAM: 10/22/2024 5:07 PM, LOCATION [facility] INDICATION: H47.10: Papilledema of both eyes EXAMINATION: Computed tomography (CT) of the head without contrast ADDITIONAL CLINICAL INFORMATION: Ordering Provider Reason For Exam: Papilledema per ophthalmology Technologist Note: None. Additional: None. TECHNIQUE: CT of the head was performed without contrast according to standard protocol. CT dose reduction technique was used, including Automated Exposure Control. COMPARISON: No prior study is available for comparison at the time of this dictation. FINDINGS: No acute intra- or extra-axial fluid collections are identified. Subjective mild prominence of the ventricles. The ventricles are of otherwise normal in shape and morphology. The basilar cisterns are patent. No mass effect or midline shift is seen. The adrian-white matter differentiation is normal. There is suspected faint vascular calcification of the carotid siphons. No acute calvarial fracture is identified. The orbits appear normal. There is mild paranasal sinus disease. Small mucous retention cysts are seen in the maxillary sinuses bilaterally. The mastoid air cells are clear. No soft tissue abnormality is identified. Procedure Note Laci Bird MD - 10/22/2024 PROCEDURE: CT HEAD WO CONTRAST, DATE/TIME OF EXAM: 10/22/2024 5:07 PM, LOCATION [facility] INDICATION: H47.10: Papilledema of both eyes EXAMINATION: Computed tomography (CT) of the head without contrast ADDITIONAL CLINICAL INFORMATION: Ordering Provider Reason For Exam: Papilledema per ophthalmology Technologist Note: None. Additional: None. TECHNIQUE: CT of the head was performed without contrast according to standard protocol. CT dose reduction technique was used, including Automated Exposure Control. COMPARISON: No prior study is available for comparison at the time ofthis dictation. FINDINGS: No acute intra- or extra-axial fluid collections are identified.Subjective mild prominence of the ventricles. The ventricles are of otherwisenormal in shape and morphology. The basilar cisterns are patent. No mass effector midline shift is seen. The adrian-white matter differentiation is normal. There is suspected faint vascular calcification of the carotid siphons.No acute calvarial fracture is identified. The orbits appear normal. Thereis mild paranasal sinus disease. Small mucous retention cysts are seen inthe maxillary sinuses bilaterally. The mastoid air cells are clear. No soft tissue abnormality is identified. IMPRESSION: 1.No acute intracranial hemorrhage, midline shift, or significant mass effect. > Interpreting Provider: Laci Bird MD on 10/22/2024 6:13 PM Jos Gardiner MD CT ORDERABLES * (ABNORMAL) CBC W AUTO DIFFERENTIAL (10/22/2024 4:48 PM [facility]) WBC 8.2 4.0 - 10.7 x10E9/L 10/22/2024 4:58 PM [facility] RBC Count 4.92 3.90 - 5.20 x10E12/L 10/22/2024 4:58 PM [facility] Hemoglobin 14.5 11.9 - 15.8 g/dL 10/22/2024 4:58 PM [facility] Hematocrit 41.7 34.8 - 46.1 % 10/22/2024 4:58 PM [facility] MCV 84.8 80.0 - 98.0 fL 10/22/2024 4:58 PM [facility] MCH 29.5 26.7 - 33.6 pg 10/22/2024 4:58 PM [facility] MCHC 34.8 31.7 - 36.3 g/dL 10/22/2024 4:58 PM [facility] RDW-CV 13.2 11.3 - 14.8 % 10/22/2024 4:58 PM [facility] Platelet Count 292 150 - 420 x10E9/L 10/22/2024 4:58 PM [facility] MPV 10.0 7.8 - 11.4 fL 10/22/2024 4:58 PM [facility] Neutrophil % 59.1 41.0 - 74.0 % 10/22/2024 4:58 PM [facility] Lymphocyte % 27.0 17.0 - 47.0 % 10/22/2024 4:58 PM [facility] Monocyte % 11.3(H) 3.0 - 11.0 % 10/22/2024 4:58 PM [facility] Eosinophil % 1.6 0.0 - 7.0 % 10/22/2024 4:58 PM [facility] Basophil % 0.5 0.0 - 1.6 % 10/22/2024 4:58 PM [facility] Immature Granulocytes % 0.5 0.0 - 1.0 % 10/22/2024 4:58 PM [facility] Neutrophil Absolute 4.82 1.60 - 7.50 x10E9/L 10/22/2024 4:58 PM [facility] Lymphocyte Absolute 2.20 1.00 - 4.40 x10E9/L 10/22/2024 4:58 PM [facility] Monocyte Absolute 0.92 0.15 - 1.00 x10E9/L 10/22/2024 4:58 PM [facility] Eosinophil Absolute 0.13 0.00 - 0.60 x10E9/L 10/22/2024 4:58 PM [facility] Basophil Absolute 0.04 0.00 - 0.13 x10E9/L 10/22/2024 4:58 PM [facility] Blood BLOOD SPECIMEN / Unknown Venipuncture / Unknown 10/22/2024 4:48 PM RN ER 10/22/2024 4:54 PM [facility] Jos Gardiner MD LAB - HEMATOLO GY ORDERABLES Performing Organization Address [facility]/State/ZIP Co de Phone Number [facility] [address] [place] [phone], [facility] [phone] * (ABNORMAL) COMPREHENSIVE METABOLIC PANEL (10/22/2024 4:48 PM RN ER) BUN 12 7 - 26 mg/dL 10/22/2024 5:26 PM [facility] Creatinine 0.98(H) 0.56 - 0.96 mg/dL 10/22/2024 5:26 PM [facility] Sodium 139 136 - 145 mmol/L 10/22/2024 5:26 PM [facility] Potassium 3.9 3.5 - 4.5 mmol/L 10/22/2024 5:26 PM [facility] Chloride 109(H) 98 - 107 mmol/L 10/22/2024 5:26 PM [facility] CO2 19(L) 22 - 29 mmol/L 10/22/2024 5:26 PM [facility] Glucose 77 70 - 99 mg/dL 10/22/2024 5:26 PM [facility] Calcium 9.3 8.4 - 10.2 mg/dL 10/22/2024 5:26 PM [facility] Protein Total 7.3 6.0 - 8.3 g/dL 10/22/2024 5:26 PM [facility] Albumin 4.2 3.4 - 5.0 g/dL 10/22/2024 5:26 PM [facility] Bilirubin Total 0.6 0.2 - 1.2 mg/dL 10/22/2024 5:26 PM [facility] Alkaline Phosphatase 78 40 - 150 U/L 10/22/2024 5:26 PM [facility] ALT 21 5 - 55 U/L 10/22/2024 5:26 PM [facility] AST 19 5 - 34 U/L 10/22/2024 5:26 PM [facility] Anion Gap 11 6 - 16 10/22/2024 5:26 PM [facility] BUN/Creatinine Ratio 12 7 - 23 10/22/2024 5:26 PM [facility] Osmolality Calculated 287 275 - 295 mOsm/kg 10/22/2024 5:26 PM [facility] Albumin/Globulin Ratio 1.4 1.1 - 2.3 10/22/2024 5:26 PM [facility] eGFR by CKD-EPI 76(L) >=90 mL/min/1.7 3 m2 10/22/2024 5:26 PM [facility] Blood BLOOD SPECIMEN / Unknown Venipuncture / Unknown 10/22/2024 4:48 PM RN ER 10/22/2024 4:53 PM [facility] Jos Gardiner MD LAB - CHEMISTR Y ORDERABLES [facility] [address] [place] [phone], [facility] [phone] * HCG BETA BLOOD QUANTITATIVE (10/22/2024 4:48 PM RN ER) Beta-hCG Total Quantitative <3 mIU/mL 10/22/2024 5:32 PM [facility] Comment: HCG Numeric Result Interpretation: Non- Females: < 5 mIU/mL Post-Menopausal Females: < 7 mIU/mL This assay is cleared for use in the early detection of only. It is not approved for any other uses such as tumor marker screening, tumor marker monitoring, etc. and should not be used for any other purposes. Blood BLOOD SPECIMEN / Unknown Venipuncture / Unknown 10/22/2024 4:48 PM RN ER 10/22/2024 4:53 PM RN ER oJs Gardiner MD LAB - CHEMISTR Y ORDERABLES [facility] [address] [place] [address], [place] [phone] * HEPATITIS C ANTIBODY (07/25/2024 9:54 AM RN ER) Hepatitis C Antibody Non-react vernon Non-reac tive 07/25/2024 11:08 AM RN ER [facility] Comment:Hepatitis C Antibody screen indicates no serologic evidence of past or current infection with Hepatitis C Virus. Patients with unexplained liver disease who are immunocompromised or suspected of having acute Hepatitis C infection may benefit from Nucleic Acid Test (KYREE) for Hepatitis C Viral RNA to confirm Hepatitis C status. Blood BLOOD SPECIMEN / Unknown Lab Venipuncture / Unknown 07/25/2024 9:54 AM RN ER 07/25/2024 10:25 AM RN ER Selena Rodriguez MD LAB - CHEMISTRY ORDERABLES [facility] [address] [place] [phone], [place] [phone] from Last 3 Months or Most Recently Relevant to Health Maintenance Advance Directives * Full Code (Latest Code Status on File) Date Activated Date Inactivated Comments 10/23/2024 8:28 AM 10/24/2024 1:06 PM Care Teams Aerial Crop Duster Relationship Specialty Start Date End Date Bhavya Malloy [address] [place] [address] PCP - General 07/25/24 Davy Lua MD [facility] [place] [address] 02/11/17
--- OUTSIDE RECORDS SUMMARY | 2024-12-16 12:15 | XMS_ITS | Clinical Summary ---
Author Organization [facility] Address [address] [place] [address] Care Team Providers Care Network Manager Name Role Phone Unavailable Primary Care Provider Unavailabl e Allergies No known active allergies Medications ondansetron 4 MG disintegrating tablet Take 1 tablet (4 mg total) by mouth every 8 (eight) hours as needed for Nausea. 20 tablet 8 Active Social History Tobacco Use Types Packs/Day Years Used Date Smoking Tobacco: Never Smokeless Tobacco: Never Alcohol Use Standard Drinks/Week Comments No 0 (1 standard drink = 0.6 oz pur e alcohol) Comments Unknown Sex and Gender Information Value Date Recorded Sex Assigned at Not on file Legal Sex Female 5:28 PM CDT Gender Identity Not on file Sexual Orientation Not on file Last Filed Vital Signs Vital Sign Reading Time Taken Comments Blood Pressure 119/75 05/24/2018 10:05 PM CDT Pulse 74 05/24/2018 10:05 PM CDT Temperature 36.8 C (98.2 F) 05/24/2018 5:35 PM CDT Respiratory Rate 20 05/24/2018 10:05 PM CDT Oxygen Saturation 100% 05/24/2018 10:05 PM CDT Inhaled Oxygen Concentration - - Weight 84.2 kg (185 lb 10 oz) 05/24/2018 5:35 PM CDT Height 157.5 cm (5' 2 ) 05/24/2018 5:35 PM CDT Body Mass Index 33.95 05/24/2018 5:35 PM CDT Plan of Treatment Health Maintenance Due Date Last Done Comments Annual Physical 1989 Hepatitis C 2004 Hepatitis B Vaccines (1 of 3 - 19+ 3-dose series) 2005 Cervical Cancer Screening Pa p Smear (Age 30 to 64) Every 3 Years 03/18/2021 03/18/2018 Cervical Cancer Screening Pa p with HPV Testing (Age 30 to 64) Every 5 Years 03/18/2023 03/18/2018 Cervical Cancer Screening wi th HPV 03/18/2023 COVID-19 Vaccine (1 - 2023-2 5 season) 2024 DTaP, Tdap and Td Vaccines ( 3 - Td or Tdap) 12/15/2027 12/14/2017, 08/14/2015 HPV Vaccines Aged Out No longer eligi ble based on patient's age to complete this topic Meningococcal B Vaccine Aged Out No l onger eligible based on patient's age to complete this topic Meningococcal Vaccine Aged Out No drake alexus eligible based on patient's age to complete this topic Pneumococcal Vaccine: Pediatrics (0 to 5 Years) and At-Risk Patients (6 to 64 Years) Aged Out No longer eligible b ased on patient's age to complete this topic RSV Immunizations Under 20 Months Aged Out No longer eligible b ased on patient's age [place] [address]
--- OUTSIDE RECORDS SUMMARY | 2024-12-16 12:15 | XMS_ITS | Clinical Summary ---
Author Organization [facility] [address] [facility] lt Address [address] [place] [address] Care Team Providers Care Horse Rider Name Role Phone Neil Diez MD Unavailable [phone] Bhavya Malloy NP Primary Care Provider Edwin Blanchard MD Unavailable [phone] Roselyn Daly MD Unavailable [phone] Allergies No known active allergies Medications buPROPion XL (WELLBUTRIN XL) 300 mg 24 hr tablet Take 1 tablet (300 mg total) by mouth Active sertraline (ZOLOFT) 100 mg tablet Take 1.5 tablets (150 mg total) by mouth daily 1 Active ALPRAZolam (XANAX) 0.25 mg tablet Take 1 tablet (0.25 mg total) by mouth daily as needed Active aspirin 81 mg enteric coated tablet Take 1 tablet (81 mg total) by mouth daily Active ergocalciferol (VITAMIN D) 50,000 unit capsule Take 1 capsule (50,000 Units total) by mouth Active lurasidone (LATUDA) 20 mg tablet Take 1 tablet (20 mg total) by mouth daily [address] (PROTONIX) 40 mg EC tablet Take 1 tablet (40 mg total) by mouth daily 3 Active methylphenidat e ER (CONCERTA) 54 mg CR tablet TAKE 1 TABLET BY MOUTH EVERY DAY FOR 30 DAYS Active cyanocobalamin (Vitamin B-12) 1,000 mcg/mL injection INJECT 1 ML EVERY MONTH SUBCUTANEOUSLY Active elagolix 150 mg tablet Take 150 mg by mouth daily 30 tablet 11 4 Active Active Problems Problem Noted Date Diagnosed Date Other fatigue 09/08/2024 Assessment & Plan (09/08/2024 11:55 AM TOP STITCHER): Tsh Lp Hgba1c To watch caffeine and CHO intake LLQ pain 09/08/2024 Assessment & Plan (09/08/2024 11:56 AM TOP STITCHER): To ice for trigger point To grnh desiree. Venous vascular malformations 07/07/2023 Anxiety 10/25/2014 Overview (12/26/2016): Anxiety Depression 10/25/2014 Overview (12/26/2016): Depression Encounters Date Type Department Care Team Description 12/07/[address] [place] [address] Susan Eller 11/15/2024 1:30 PM TOP [facility]ER Office Visit [facility] [address], [address] [place] [address] Amanda Santana MD Idiopathic intracranial hypertension (Primary Dx); Papilledema due to raised intracranial pressure; Unspecified disorder of visual pathways; Encounter for observation for other suspected diseases and conditions ruled out 11/09/2024 Telephone [facility] [address] [place] [address] Outpatient Health [address] [place] [phone] Amanda Santana MD 11/09/2024 Telephone [facility] [address] [place] [address] [phone] Amanda Santana MD 11/08/2024 Telephone [facility] [address] [place] [address] [phone] Amanda Santana MD 10/31/2024 Telephone [facility] [address] [place] [phone] Amanda Santana MD 10/19/2024 Telephone [facility] [address] [place] [address] Taina Forbes OD new pt appt scheduled; requesting sooner appt 10/17/2024 Telephone [facility] [address] [place] [address] Roselyn Daly MD Test Results 10/16/2024 8:30 AM [facility]ER Lab [address] Other fatigue from Last 3 Months Surgical History Surgery Date Site/Laterality Comments TONSILLECTOMY Tonsillectomy ADENOIDECTOMY Adenoidectomy LEG SURGERY leg below knee SECTION x 3 HYSTERECTOMY 10/21/2022 - 11/17/2022 OOPHORECTOMY 10/21/2022 - 11/17/2022 Right Medical History Medical History Date Comments Hx Other Medical Tubes in ears Hx Other Medical Sclorotherapy R t leg Anxiety Depression Acid reflux Venous malformation Migraines Kidney disease Family History Medical History Relation Name Comments Diabetes Father Hypertension Father Breast cancer Maternal Grandmother Hypertension Mother Diabetes Other 1 Family history of Diabetes mellitus; Hypertension Other 2 Family history of Hypertension; Stroke Other 3 Family history of Stroke; Breast cancer Other 4 Family history of Cancer, breast; Cancer Neg Hx no h/o colon or 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 No 09/08/2024 Within the last year, have y ou been humiliated or emotionally abused in other ways by your partner or ex-partner? No Within the last year, have y ou been kicked, hit, slapped, or otherwise physically hurt by your partner or ex-partner? No 09/08/2024 Within the last year, have y ou been raped or forced to have any kind of sexual activity by your partner or ex-partner? No 09/08/2024 Personal Safety Answer Date Recorded Have you ever been in or are you currently in a harmful physical or emotional relationship or is someone making you feel afraid or unsafe? Denies 10/18/2023 Comments No Sex and Gender Information Value Date Recorded Sex Assigned at Not on file Legal Sex Female 8:56 PM TOP STITCHER Gender Identity Not on file Sexual Orientation Not on file Obstetrics History Para Term AB IAB SAB Ectopic Multiple Livin g Live Births 4 3 2 1 1 1 3 3 Date Outcome GA Total Labor Labor/2nd/3rd Weight Sex Type Anes PTL Sydni A1 A5 Name Clin 2015 Term 37w 3d 2.892 kg (6 lb 6 oz) M CS-LTr anv Combin ed Spinal /Epidu ral N Livin g 8 9 Farideh cardenas er Complications:None Delivery Location:[facility] 2017 Term 37w 4d 2.835 kg (6 lb 4 oz) M C-S j incis Combin ed Spinal /Epidu ral N Livin g 5 8 Eber Rico DO Complications: Intolera nce Delivery Location:[facility] ([facility] ) Comments:No observed a nomalies 2019 SAB 2020 36w 0d 0h 02m 0h 02m 2.815 kg (6 lb 3.3 oz) M CS-LTr anv Spinal Livin g 7 9 MERY THOMAS DO Complications:None Delivery Location:[facility] ([facility] ) Last Filed Vital Signs Vital Sign Reading Time Taken Comments Blood Pressure 128/82 09/08/2024 11:08 AM TOP STITCHER Pulse 100 03/29/2024 6:14 PM CDT Temperature 36.8 C (98.2 F) 03/29/2024 6:14 PM CDT Respiratory Rate 18 03/29/2024 6:14 PM CDT Oxygen Saturation 98% 03/29/2024 6:14 PM CDT Inhaled Oxygen Concentration - - Weight 94.8 kg (209 lb) 09/08/2024 11:08 AM TOP STITCHER Height 160 cm (5' 3 ) 09/08/2024 11:08 AM TOP STITCHER Body Mass Index 37.02 09/08/2024 11:08 AM TOP STITCHER Plan of Treatment Health Maintenance Due Date Last Done Comments Depression Screening 1986 Hepatitis C Screening 1986 Varicella Vaccines (1 of 2 - 13+ 2-dose series) 1999 Hepatitis B Screening 2004 Regular Well Visit/Exam 18-64 2004 Covid-19 Vaccine (4 - season) 2024 07/08/2023, 01/13/2021, 12/23/2020 Influenza Vaccine (#1) 2024 3, 06/11/2021, 06/13/2020, Additional history exists DTaP/Tdap/Td Vaccine (4 - Td or Tdap) 09/04/2030 09/04/2020, 12/14/2017, 08/14/2015 HPV Vaccines Aged Out No longer eligi ble based on patient's age to complete this topic Pneumococcal vaccine <65 Aged Out No longer eligible based on patient's age to complete this topic Procedures Procedure Name Priority Date/Time Associated Diagnosis Comments FUNDUS PHOTOS/FAF - OU - BOTH EYES Routine 11/15/2024 3:14 PM TOP STITCHER Unspecified disorder of visual pathways Encounter for observation for other suspected diseases and conditions ruled out OCT, RETINA - OU - BOTH EYES Routine 11/15/2024 3:13 PM TOP STITCHER Unspecified disorder of visual pathways Encounter for observation for other suspected diseases and conditions ruled out OCT, OPTIC NERVE - OU - BOTH EYES Routine 11/15/2024 3:13 PM TOP STITCHER Unspecified disorder of visual pathways Encounter for observation for other suspected diseases and conditions ruled out TSH Routine 10/16/2024 8:34 AM TOP STITCHER Other fatigue LIPID PANEL Routine 10/16/2024 8:34 AM TOP STITCHER Other fatigue HEMOGLOBIN A1C Routine 10/16/2024 8:34 AM TOP STITCHER Other fatigue from Last 3 Months Results * Fundus Photos/FAF - OU - Both Eyes (11/15/2024 3:14 PM TOP STITCHER) Anatomical Region Laterality Modality Head Fundus Photograp hy Narrative 11/15/2024 3:14 PM TOP STITCHER Nasal blurring OD, 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 Left Eye Findings include normal observations. Notes Normal mean ganglion cell complex thickness OU (on Ze[employer] Cirrus OCT) us Amanda Santana MD OPHTH TOMOGRAPHY Final Resu lt * OCT, Optic Nerve - OU - Both Eyes (11/15/2024 3:13 PM TOP STITCHER) RNFL OD 106 micrometers CONTINUUM Anatomical Region Laterality Modality Head Optical Coherenc e Tomography Narrative 11/15/2024 3:13 PM TOP STITCHER Right Eye Average RNFL thickness 106 micrometers. Notes Improved RNFL OD, unreliable OS us Amanda Santana MD OPHTH TOMOGRAPHY Final Resu lt * TSH (10/16/2024 8:34 AM TOP STITCHER) Thyroid Stimulating Hormone 1.98 0.30 - 4.20 mcIUnit/mL Blood 10/16/2024 8:34 AM TOP STITCHER 10/16/2024 10:55 AM TOP STITCHER Roselyn Daly MD LAB BLOOD ORDERABLE S Final Result [facility] [place] [address] [facility] Department of Laboratories [place], [place] [id number] * Hemoglobin A1c (10/16/2024 8:34 AM TOP STITCHER) Hgb A1C 5.5 4.0 - 5.6 % Estimated Average Glucose 111 mg/dL [facility] ([facility]) Comment: The ADA recommends reporting an estimated Average Glucose (eAG) with all Hemoglobin A1c results using the equation derived from a study of 507 normal and diabetic adults. Minority populations were underrepresented and children were not included. (Diabetes Care 31:9255-7454, 2008). The eAG is not equivalent to a fasting glucose. Blood 10/16/2024 8:34 AM TOP STITCHER 10/16/2024 10:55 AM TOP STITCHER us Roselyn Daly MD LAB BLOOD ORDERABLE S Final Result [facility] ([place]) [address] [facility] Department [place] [address] * (ABNORMAL) Lipid panel (10/16/2024 8:34 AM TOP STITCHER) Cholesterol 216(H) 30 - 199 mg/dL Comment: Interpretive Data Ages < or = 19 years Acceptable: <170 mg/dL Borderline high: 170-199 mg/dL High: >or= 200 mg/dL Ages > or = 20 years Desirable: <200 mg/dL Borderline high: 200-239 mg/dL High: >or= 240 mg/dL Literature References: 1. Expert Panel on Integrated Guidelines for Cardiovascular Health and Risk Reduction in Children and Adolescents. Pediatrics 2011;128:S213 2. NCEP Expert Panel. Circulation 2004;110:227 Current Interpretive Data was last revised on 2018. Triglycerides 221(H) <=149 mg/dL [facility] ([place]) Comment: Interpretive Data Ages < or = 9 years Acceptable: <75 mg/dL Borderline high: 75-99 mg/dL High: >or= 100 mg/dL Ages 10 to 20 years Acceptable: <90 mg/dL Borderline high: 90-129 mg/dL High: >or= 130 mg/dL Ages > or = 20 years Desirable: <150 mg/dL Borderline high: 150-199 mg/dL High: 200-499 mg/dL Very high: >or= 499 mg/dL Literature References: 1. Expert Panel on Integrated Guidelines for Cardiovascular Health and Risk Reduction in Children and Adolescents. Pediatrics 2011;128:S213 2. NCEP Expert Panel. Circulation 2004;110:227 Current Interpretive Data was last revised on 2018. HDL 46 >=40 mg/dL [facility] ([place]) Comment: Interpretive Data Ages < or = 19 years Acceptable: >45 mg/dL Borderline low: 40-45 mg/dL Low: <40 mg/dL Ages > or = 20 years Desirable: >or= 60 mg/dL Low: <40 mg/dL Literature References: 1. Expert Panel on Integrated Guidelines for Cardiovascular Health and Risk Reduction in Children and Adolescents. Pediatrics 2011;128:S213 2. NCEP Expert Panel. Circulation 2004;110:227 Current Interpretive Data was last revised on 2018. LDL, calculated 131(H) <=129 mg/dL [facility] ([place]) Comment: Interpretive Data Ages < or = 19 years Acceptable: <110 mg/dL Borderline high: 110-129 mg/dL High: >or= 130 mg/dL Ages > or = 20 years Optimal: <100 mg/dL Near optimal: 100-129 mg/dL Borderline high: 130-159 mg/dL High: >160 mg/dL Calculated using the Agusto LDL-C estimating equation. This equation was implemented on 2024. Prior to this date LDL-C was estimated using the Friedewald equation. Literature References: 1. Expert Panel on Integrated Guidelines for Cardiovascular Health and Risk Reduction in Children and Adolescents. Pediatrics 2011;128:S213 2. NCEP Expert Panel. Circulation 2004;110:227 3. Agusto Harris al. JEANA Cardiol. 2020 January 18;5(5):540-548. doi: 10.1001/jamacardio.2020.0013 Current Interpretive Data was last revised on 2024. Non-HDL Cholesterol 170 mg/dL [facility] ([place]) Comment: Interpretive Data Ages < or = 19 years Acceptable: <120 mg/dL Borderline high: 120-144 mg/dL High: >145 mg/dL Ages > or = 20 years When triglycerides are >200 mg/dL, Non-HDL cholesterol is a secondary target of therapy with treatment goals that are 30 mg/dL greater than the LDL cholesterol target. Literature References: 1. Expert Panel on Integrated Guidelines for Cardiovascular Health and Risk Reduction in Children and Adolescents. Pediatrics 2011;128:S213 2. NCEP Expert Panel. Circulation 2004;110:227 Current Interpretive Data was last revised on 2018. Chol/HDL ratio 5 KAI [facility] ([place]) Blood 10/16/2024 8:34 AM TOP STITCHER 10/16/2024 10:55 AM TOP STITCHER us Roselyn Daly MD LAB BLOOD ORDERABLE S Final Result [facility] ([place]) [address] [facility] Department of Laboratories [place] [id number] from Last 3 Months Insurance [facility] CHO[facility] PLUS [facility] CHOICE PLUS [facility] CHOICE PLUS [place] [id number] Care Teams Horse Rider Relationship Specialty Start Date End Date Bhavya Malloy NP [address] [place] [address] [place] [address] PCP - General Nurse Practitioner 11/15/24 Neil Diez MD [address] [place] [phone] Consulting Physician Ophthalmology 11/15/24 Edwin Blanchard MD [address] [place] [place] [phone] Neurologist Neurology 11/15/24 Roselyn Daly MD [address] [place] [address] [place] [address] Consulting Physician Obstetrics and Gynecology 11/15/24
--- OUTSIDE RECORDS SUMMARY | 2024-12-16 12:15 | XMS_ITS | Data Portability ---
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 Plan of Treatment Reminders Order Date Submit Date Provider Last Modified By Organization Details Last Modified Time Details Appointments None recorded. Lab glycohemogl obin, total, blood [address] (Lab), [address] [place], [address], 4 08:22:49 lipid panel, serum [address] (Lab), [address] [place], [address], 4 08:22:49 CMP, serum or plasma [address] (Lab), [address] [place], [address], 4 08:22:49 CBC w/ auto diff [address] (Lab), [address] [place], [address], 4 08:22:49 TSH, serum or plasma [address] (Lab), [address] [place], [address], 4 08:22:49 thyroid peroxidase (tpo) Ab, serum 2023 024 [facility] (Lab), [address] [place], [address], 4 12:27:10 C-reactive protein, quantitativ e, serum or plasma 2022 023 [facility] (Lab), [address] [place], [address], 3 13:18:26 ESR (erythrocyt e sedimentati on rate), blood 2022 023 [facility] (Lab), [address] [place], [address], 3 18:38:25 rf (rheumatoid factor), serum 2022 023 [facility] (Lab), [address] [place], [address], 3 18:45:23 BANDAR (antinuclea r antibodies) screen, serum 2022 023 [facility] (Lab), [address] [place], [address], 3 11:17:38 TSH, serum or plasma 2022 023 [facility] (Lab), [address] [place], [address], 3 19:24:10 vitamin D, 25-hydroxy, total, serum [address] (Lab), [address] [place], [address], 3 14:52:50 iron + total iron-bindin g capacity (TIBC), serum 2022 023 [facility] (Lab), [address] [place], [address], 3 18:43:40 vitamin B12 + folate, serum or blood [email or web address] (Lab), [address] [place], [address], 3 14:52:50 CBC w/ auto diff 2022 023 [facility] (Lab), [address] [place], [address], 3 18:14:22 renal function panel, serum 2022 023 [facility] (Lab), [address] [place], [address], 3 12:59:52 rapid strep group A, throat 2022 023 [email or web address] 3 [facility] [address] [address], [place], [address], 3 14:53:32 Referral None recorded. Procedures None recorded. Surgeries None recorded. Imaging XR, lumbar spine 2023 024 [email or web address] [address] [facility], [address] [facility], [facility] [address], [place], [address], 4 09:25:16 Medication Orders topiramate 25 mg tablet 2023 024 [id number] [address] , [place], [place], [id number], 4 09:55:45 Ubrelvy 50 mg tablet 2023 024 [facility] #[id number], [address], [place], [place], [id number], 4 10:43:44 Patient TargetsNo targets recorded. Patient InstructionsNo instructions recorded. Reason for Referral None Reported. Results Created Date Observation Date Name Description Value Unit Range Abnormal Flag Note LastModifiedBy Organization Detail LastModifiedTime 05/05/20 22 05/07/2022 BANDAR/A NTINU CLEAR ANTIB ODIES ,IFA antinuclear antibodies, ifa negati ve Negat melvin <1:80 Borde rline 1:80 Posit melvin >1:80 ICAP nomen clatu re: AC-0 For more infor david ryan about Hep-2 cell patte rns use ANApa ttern s.org , the offic vinod schaefer for the Inter natio nal Conse nsus on Antin uclea r Antib ciaran (BANDAR) Patte rns (ICAP ). Perfo rmed at: - [facility] [place] [address] Lab Direc tor: Ponce de la torre PhD, Phone : [phone] Not Available [facility] (Lab) [address] [place], [address], 05/07/2022 21:07:33 05/05/20 22 05/05/2022 C REACT MELVIN PROTE IN,UL TRA SENS C-reactive protein 0.32 mg/dL 0.0-0. 5 Not Available [facility] (Lab) [address] [place], [address], 05/05/2022 20:41:12 05/05/20 22 05/05/2022 SEDIM ENTAT ION RATE erythrocyte sedimentatio n rate 11 mm/HR 0-[address] [facility] (Lab) [address] [place], [address], 05/05/2022 21:31:54 05/05/20 22 05/05/2022 TSH thyroid-stim ulating hormone 2.570 uIU/m L 0.465- 4.680 Not Available [facility] (Lab) [address] [place], [address], 05/05/2022 20:59:28 05/05/20 22 05/05/2022 COMPR EHENS MELVIN METAB OLIC PANEL anion gap 15.3 mmol/ L 14-22 Not Available [facility] (Lab) [address] [place], [address], 05/05/2022 20:42:52 05/05/20 22 05/05/2022 COMPR EHENS MELVIN METAB OLIC PANEL glucose 109 mg/dL 70-99 high Not Available [facility] (Lab) [address] [place], [address], 05/05/2022 20:42:52 05/05/20 22 05/05/2022 COMPR EHENS MELVIN METAB OLIC PANEL BUN 11 mg/dL 8-19 Not Available [facility] (Lab) [address] [place], [address], 05/05/2022 20:42:52 05/05/20 22 05/05/2022 COMPR EHENS MELVIN METAB OLIC PANEL creatinine 1.03 mg/dL 0.66-1 .25 Not Available [facility] (Lab) [address] [place], [address], 05/05/2022 20:42:52 05/05/20 22 05/05/2022 COMPR EHENS MELVIN METAB OLIC PANEL GFR >60 Refer ence Range : Dudley ge GFR Healt hy Adult : >60 mL/mi n/1.7 3 m2 Chron ic Kidne y Disea se: 15-60 mL/mi n/1.7 3 m2 Kidne y Failu re: <15/m L/min /1.73 m2 www.n iddk. nih.g ov The MDRD study equat ion has not been valid ated in child bharat <18 years of age; pregn ant women ; the elder ly >85 years of age; or in some racia l or ethni c subgr oups, such as Hispa nics. Outsi de the valid ated rory eters , estim ated GFR is less accur ate, requi ring clini memo judgm ent on a case- by-ca se basis . Clini memo inter preta tion for other races and ages must be made by the clini juwan. The MDRD study equat ion has not been valid ated for the evalu ation of serum creat inine relat ed to nutri valentine l statu s or medic ation usage . For perso ns <18 years of age, a pedia tric GFR calcu lator is avail able on the [facility] websi te: https ://scot w.kid miguel ángel.o rg/pr ofess ional s/kdo qi/gf r_cal culat or Not Available [facility] (Lab) [address] [place], [address], 05/05/2022 20:42:52 05/05/20 22 05/05/2022 COMPR EHENS MELVIN METAB OLIC PANEL alkaline phosphatase 74 U/L 38-126 Not Available [facility] (Lab) [address] [place], [address], 05/05/2022 20:42:52 05/05/20 22 05/05/2022 COMPR EHENS MELVIN METAB OLIC PANEL alanine aminotransfe rase 12 U/L 0-[address] [facility] (Lab) [address] [place], [address], 05/05/2022 20:42:52 05/05/20 22 05/05/2022 COMPR EHENS MELVIN METAB OLIC PANEL aspartate aminotransfe rase 19 U/L 15-[address] [facility] (Lab) [address] [place], [address], 05/05/2022 20:42:52 05/05/20 22 05/05/2022 COMPR EHENS MELVIN METAB OLIC PANEL bilirubin, total 0.80 mg/dL 0.20-1 .30 Not Available [facility] (Lab) [address] [place], [address], 05/05/2022 20:42:52 05/05/20 22 05/05/2022 COMPR EHENS MELVIN METAB OLIC PANEL calcium 9.7 mg/dL 8.4-10 .2 Not Available [facility] (Lab) [address] [place], [address], 05/05/2022 20:42:52 05/05/20 22 05/05/2022 COMPR EHENS MELVIN METAB OLIC PANEL total protein 7.3 g/dL 6.3-8. 2 Not Available [facility] (Lab) [address] [place], [address], 05/05/2022 20:42:52 05/05/20 22 05/05/2022 COMPR EHENS MELVIN METAB OLIC PANEL albumin 4.4 g/dL 3.4-5. 0 Not Available [facility] (Lab) [address] [place], [address], 05/05/2022 20:42:52 05/05/20 22 05/05/2022 COMPR EHENS MELVIN METAB OLIC PANEL globulin 2.9 g/dL 2.6-4. 2 Not Available [facility] (Lab) [address] [place], [address], 05/05/2022 20:42:52 05/05/20 22 05/05/2022 COMPR EHENS MELVIN METAB OLIC PANEL A/G ratio 1.5 ratio 1.0-2. 0 Not Available [facility] (Lab) [address] [place], [address], 05/05/2022 20:42:52 05/05/20 22 05/05/2022 COMPR EHENS MELVIN METAB OLIC PANEL sodium 136 mmol/ L 137-14 5 low Not Available [facility] (Lab) [address] [place], [address], 05/05/2022 20:42:52 05/05/20 22 05/05/2022 COMPR EHENS MELVIN METAB OLIC PANEL potassium 4.3 mmol/ L 3.5-5. 1 Not Available [facility] (Lab) [address] [place], [address], 05/05/2022 20:42:52 05/05/20 22 05/05/2022 COMPR EHENS MELVIN METAB OLIC PANEL chloride 103 mmol/ L 98-107 Not Available [facility] (Lab) [address] [place], [address], 05/05/2022 20:42:52 05/05/20 22 05/05/2022 COMPR EHENS MELVIN METAB OLIC PANEL carbon dioxide 22 mmol/ L 22-30 Not Available [facility] (Lab) [address] [place], [address], 05/05/2022 20:42:52 05/05/20 22 05/05/2022 RHEUM ATOID FACTO R rf <8.6 IU/mL 0.0-11 .9 Not Available [facility] (Lab) [address] [place], [address], 05/05/2022 20:41:10 05/05/20 22 05/05/2022 CBC/C OMPLE TE BLD COUNT W/DIF F platelets 321 x10'3 /uL 150-40 0 Not Available [facility] (Lab) [address] [place], [address], 05/05/2022 20:31:05 05/05/20 22 05/05/2022 CBC/C OMPLE TE BLD COUNT W/DIF F white blood cells 8.0 x10'3 /uL 4.2-10 .8 Not Available [facility] (Lab) [address] [place], [address], 05/05/2022 20:31:05 05/05/20 22 05/05/2022 CBC/C OMPLE TE BLD COUNT W/DIF F red blood cells 4.77 x10'6 /uL 3.80-5 .20 Not Available [facility] (Lab) [address] [place], [address], 05/05/2022 20:31:05 05/05/20 22 05/05/2022 CBC/C OMPLE TE BLD COUNT W/DIF F hemoglobin 13.7 g/dL 12.0-1 5.6 Not Available [facility] (Lab) [address] [place], [address], 05/05/2022 20:31:05 05/05/20 22 05/05/2022 CBC/C OMPLE TE BLD COUNT W/DIF F hematocrit 41.4 % 35.7-4 5.7 Not Available [facility] (Lab) [address] [place], [address], 05/05/2022 20:31:05 05/05/20 22 05/05/2022 CBC/C OMPLE TE BLD COUNT W/DIF F mean red cell volume 86.8 fL 82.0-9 9.0 Not Available [facility] (Lab) [address] [place], [address], 05/05/2022 20:31:05 05/05/20 22 05/05/2022 CBC/C OMPLE TE BLD COUNT W/DIF F mean red cell hemoglobin 28.7 pg 27.0-3 3.0 Not Available [facility] (Lab) [address] [place], [address], 05/05/2022 20:31:05 05/05/20 22 05/05/2022 CBC/C OMPLE TE BLD COUNT W/DIF F mean RBC HGB concentratio n 33.1 g/dL 31.0-3 6.0 Not Available [facility] (Lab) [address] [place], [address], 05/05/2022 20:31:05 05/05/20 22 05/05/2022 CBC/C OMPLE TE BLD COUNT W/DIF F red cell distribution width 14.1 % 11.8-1 5.5 Not Available [facility] (Lab) [address] [place], [address], 05/05/2022 20:31:05 05/05/20 22 05/05/2022 CBC/C OMPLE TE BLD COUNT W/DIF F mean platelet volume 10.9 fL 9.0-12 .4 Not Available [facility] (Lab) [address] [place], [address], 05/05/2022 20:31:05 05/05/20 22 05/05/2022 CBC/C OMPLE TE BLD COUNT W/DIF F eosinophils 1.1 % 1.0-7. 0 Not Available [facility] (Lab) [address] [place], [address], 05/05/2022 20:31:05 05/05/20 22 05/05/2022 CBC/C OMPLE TE BLD COUNT W/DIF F neutrophils 62.6 % 39.0-7 2.0 Not Available [facility] (Lab) [address] [place], [address], 05/05/2022 20:31:05 05/05/20 22 05/05/2022 CBC/C OMPLE TE BLD COUNT W/DIF F lymphocytes 26.2 % 16.0-4 7.0 Not Available [facility] (Lab) [address] [place], [address], 05/05/2022 20:31:05 05/05/20 22 05/05/2022 CBC/C OMPLE TE BLD COUNT W/DIF F monocytes 9.3 % 5.0-12 .0 Not Available [facility] (Lab) [address] [place], [address], 05/05/2022 20:31:05 05/05/20 22 05/05/2022 CBC/C OMPLE TE BLD COUNT W/DIF F basophils 0.4 % 0.0-2. 0 Not Available [facility] (Lab) [address] [place], [address], 05/05/2022 20:31:05 05/05/20 22 05/05/2022 CBC/C OMPLE TE BLD COUNT W/DIF F immature granulocytes 0.4 % 0.00-0 .50 Not Available [facility] (Lab) [address] [place], [address], 05/05/2022 20:31:05 05/05/20 22 05/05/2022 CBC/C OMPLE TE BLD COUNT W/DIF F neutrophils, absolute count 5.00 x10'3 /uL 1.5-8. 0 Not Available [facility] (Lab) [address] [place], [address], 05/05/2022 20:31:05 05/05/20 22 05/05/2022 CBC/C OMPLE TE BLD COUNT W/DIF F lymphocytes, absolute count 2.09 x10'3 /uL 1.07-3 .43 Not Available [facility] (Lab) [address] [place], [address], 05/05/2022 20:31:05 05/05/20 22 05/05/2022 CBC/C OMPLE TE BLD COUNT W/DIF F monocytes, absolute count 0.74 x10'3 /uL 0.29-0 .99 Not Available [facility] (Lab) [address] [place], [address], 05/05/2022 20:31:05 05/05/20 22 05/05/2022 CBC/C OMPLE TE BLD COUNT W/DIF F eosinophils, absolute count 0.09 x10'3 /uL 0.02-0 .53 Not Available [facility] (Lab) [address] [place], [address], 05/05/2022 20:31:05 05/05/20 22 05/05/2022 CBC/C OMPLE TE BLD COUNT W/DIF F basophils, absolute count 0.03 x10'3 /uL 0.01-0 .08 Not Available [facility] (Lab) [address] [place], [address], 05/05/2022 20:31:05 05/05/20 22 05/05/2022 CBC/C OMPLE TE BLD COUNT W/DIF F immature granulocytes ,absolute 0.03 x10'3 /uL 0.00-0 .05 Not Available [facility] (Lab) [address] [place], [address], 05/05/2022 20:31:05 05/05/20 22 05/05/2022 CBC/C OMPLE TE BLD COUNT W/DIF F nucleated red blood cells 0.0 % -[address] [facility] (Lab) [address] [place], [address], 05/05/2022 20:31:05 05/05/20 22 05/05/2022 CBC/C OMPLE TE BLD COUNT W/DIF F NRBC# 0.00 x10'3 /uL Not Available [facility] (Lab) [address] [place], [address], 05/05/2022 20:31:05 11/28/19 23 11/27/2022 rapid strep group A, throa t STREP A negati ve Not Available [address] [place], [place], [address], 11/27/2022 10:02:38 04/07/20 23 04/08/2023 CBC WITH DIFFE RENTI AL/PL ATELE T WBC 6.6 x10e3 /uL 3.4-10 .8 Not Available [facility] ([facility]) [address] [facility] [address], [place], [address], 04/08/2023 09:14:38 04/07/20 23 04/08/2023 CBC WITH DIFFE RENTI AL/PL ATELE T RBC 4.89 x10e6 /uL 3.77-5 .28 Not Available [facility] ([facility]) [address] [facility] [address], [place], [address], 04/08/2023 09:14:38 04/07/20 23 04/08/2023 CBC WITH DIFFE RENTI AL/PL ATELE T hemoglobin 14.3 g/dL 11.1-1 5.9 Not Available [facility] ([facility]) [address] [facility] [address], [place], [address], 04/08/2023 09:14:38 04/07/20 23 04/08/2023 CBC WITH DIFFE RENTI AL/PL ATELE T hematocrit 42.6 % 34.0-4 6.6 Not Available [facility] ([facility]) [address] [place], [address], 04/08/2023 09:14:38 04/07/20 23 04/08/2023 CBC WITH DIFFE RENTI AL/PL ATELE T MCV 87 fL 79-97 Not Available [facility] ([facility]) [address] [place], [address], 04/08/2023 09:14:38 04/07/20 23 04/08/2023 CBC WITH DIFFE RENTI AL/PL ATELE T MCH 29.2 pg 26.6-3 3.0 Not Available [facility] ([facility]) [address] [facility] [address], [place], [address], 04/08/2023 09:14:38 04/07/20 23 04/08/2023 CBC WITH DIFFE RENTI AL/PL ATELE T MCHC 33.6 g/dL 31.5-3 5.7 Not Available [facility] ([facility]) [address] [facility] [address], [place], [address], 04/08/2023 09:14:38 04/07/20 23 04/08/2023 CBC WITH DIFFE RENTI AL/PL ATELE T RDW 14.2 % 11.7-1 5.4 Not Available [facility] ([facility]) [address] [facility] [address], [place], [address], 04/08/2023 09:14:38 04/07/20 23 04/08/2023 CBC WITH DIFFE RENTI AL/PL ATELE T platelets 326 x10e3 /uL 150-45 0 Not Available [facility] ([facility]) [address] [facility] [address], [place], [address], 04/08/2023 09:14:38 04/07/20 23 04/08/2023 CBC WITH DIFFE RENTI AL/PL ATELE T neutrophils 61 % not estab. Not Available [facility] ([facility]) [address] [facility] [address], [place], [address], 04/08/2023 09:14:38 04/07/20 23 04/08/2023 CBC WITH DIFFE RENTI AL/PL ATELE T lymphs 26 % not estab. Not Available [facility] ([facility]) [address] [facility] [address], [place], [address], 04/08/2023 09:14:38 04/07/20 23 04/08/2023 CBC WITH DIFFE RENTI AL/PL ATELE T monocytes 9 % not estab. Not Available [facility] ([facility]) [address] [facility] [address], [place], [address], 04/08/2023 09:14:38 04/07/20 23 04/08/2023 CBC WITH DIFFE RENTI AL/PL ATELE T eos 3 % not estab. Not Available [facility] ([facility]) [address] [facility] [address], [place], [address], 04/08/2023 09:14:38 04/07/20 23 04/08/2023 CBC WITH DIFFE RENTI AL/PL ATELE T basos 1 % not estab. Not Available [facility] ([facility]) [address] [facility] [address], [place], [address], 04/08/2023 09:14:38 04/07/20 23 04/08/2023 CBC WITH DIFFE RENTI AL/PL ATELE T immature cells [employer] Not Available [facility] ([facility]) [address] [place], [address], 04/08/2023 09:14:38 04/07/20 23 04/08/2023 CBC WITH DIFFE RENTI AL/PL ATELE T neutrophils (absolute) 4.1 x10e3 /uL 1.4-7. 0 Not Available [facility] ([facility]) [address] [place], [address], 04/08/2023 09:14:38 04/07/20 23 04/08/2023 CBC WITH DIFFE RENTI AL/PL ATELE T lymphs (absolute) 1.7 x10e3 /uL 0.7-3. 1 Not Available [facility] ([facility]) [address] [place], [address], 04/08/2023 09:14:38 04/07/20 23 04/08/2023 CBC WITH DIFFE RENTI AL/PL ATELE T monocytes(ab solute) 0.6 x10e3 /uL 0.1-0. 9 Not Available [facility] ([facility]) [address] [place], [address], 04/08/2023 09:14:38 04/07/20 23 04/08/2023 CBC WITH DIFFE RENTI AL/PL ATELE T eos (absolute) 0.2 x10e3 /uL 0.0-0. 4 Not Available [facility] ([facility]) [address] [place], [address], 04/08/2023 09:14:38 04/07/20 23 04/08/2023 CBC WITH DIFFE RENTI AL/PL ATELE T baso (absolute) 0.0 x10e3 /uL 0.0-0. 2 Not Available [facility] ([facility]) [address] [facility] [address], [place], [address], 04/08/2023 09:14:38 04/07/20 23 04/08/2023 CBC WITH DIFFE RENTI AL/PL ATELE T immature granulocytes 0 % not estab. Not Available [facility] ([facility]) [address] [facility] [address], [place], [address], 04/08/2023 09:14:38 04/07/20 23 04/08/2023 CBC WITH DIFFE RENTI AL/PL ATELE T immature grans (abs) 0.0 x10e3 /uL 0.0-0. 1 Not Available [facility] ([facility]) [address] [facility] [address], [place], [address], 04/08/2023 09:14:38 04/07/20 23 04/08/2023 CBC WITH DIFFE RENTI AL/PL ATELE T NRBC [employer] Not Available [facility] ([facility]) [address] [facility] [address], [place], [address], 04/08/2023 09:14:38 04/07/20 23 04/08/2023 CBC WITH DIFFE RENTI AL/PL ATELE T hematology comments: [employer] Not Available [facility] ([facility]) [address] [facility] [address], [place], [address], 04/08/2023 09:14:38 04/07/20 23 04/08/2023 COMP. METAB OLIC PANEL (14) glucose 105 mg/dL 70-99 above high normal Not Available [facility] ([facility]) [address] [facility] [address], [place], [address], 04/08/2023 09:14:39 04/07/20 23 04/08/2023 COMP. METAB OLIC PANEL (14) BUN 18 mg/dL 6-20 Not Available [facility] ([facility]) [address] [facility] [address], [place], [address], 04/08/2023 09:14:39 04/07/20 23 04/08/2023 COMP. METAB OLIC PANEL (14) creatinine 1.16 mg/dL 0.57-1 .00 above high normal Not Available [facility] ([facility]) [address] [facility] [address], [place], [address], 04/08/2023 09:14:39 04/07/20 23 04/08/2023 COMP. METAB OLIC PANEL (14) eGFR 63 mL/mi n/1.7 3 >59 Not Available [facility] ([facility]) [address] [place], [address], 04/08/2023 09:14:39 04/07/20 23 04/08/2023 COMP. METAB OLIC PANEL (14) BUN/creatini ne ratio 16 9-23 Not Available [facility] ([facility]) [address] [place], [address], 04/08/2023 09:14:39 04/07/20 23 04/08/2023 COMP. METAB OLIC PANEL (14) sodium 140 mmol/ L 134-14 4 Not Available [facility] ([facility]) [address] [place], [address], 04/08/2023 09:14:39 04/07/20 23 04/08/2023 COMP. METAB OLIC PANEL (14) potassium 4.9 mmol/ L 3.5-5. 2 Not Available [facility] ([facility]) [address] [place], [address], 04/08/2023 09:14:39 04/07/20 23 04/08/2023 COMP. METAB OLIC PANEL (14) chloride 104 mmol/ L 96-106 Not Available [facility] ([facility]) [address] [facility] [address], [place], [address], 04/08/2023 09:14:39 04/07/20 23 04/08/2023 COMP. METAB OLIC PANEL (14) carbon dioxide, total 22 mmol/ L 20-29 Not Available [facility] ([facility]) [address] [facility] [address], [place], [address], 04/08/2023 09:14:39 04/07/20 23 04/08/2023 COMP. METAB OLIC PANEL (14) calcium 9.4 mg/dL 8.7-10 .2 Not Available [facility] ([facility]) [address] [facility] [address], [place], [address], 04/08/2023 09:14:39 04/07/20 23 04/08/2023 COMP. METAB OLIC PANEL (14) protein, total 6.7 g/dL 6.0-8. 5 Not Available [facility] ([facility]) [address] [facility] [address], [place], [address], 04/08/2023 09:14:39 04/07/20 23 04/08/2023 COMP. METAB OLIC PANEL (14) albumin 4.4 g/dL 3.9-4. 9 Ple ase note refer ence inter edmund zafar e Not Available [facility] ([facility]) [address] [facility] [address], [place], [address], 04/08/2023 09:14:39 04/07/20 23 04/08/2023 COMP. METAB OLIC PANEL (14) globulin, total 2.3 g/dL 1.5-4. 5 Not Available [facility] ([facility]) [address] [facility] [address], [place], [address], 04/08/2023 09:14:39 04/07/20 23 04/08/2023 COMP. METAB OLIC PANEL (14) A/G ratio 1.9 1.2-2. 2 Not Available [facility] ([facility]) [address] [place], [address], 04/08/2023 09:14:39 04/07/20 23 04/08/2023 COMP. METAB OLIC PANEL (14) bilirubin, total 0.4 mg/dL 0.0-1. 2 Not Available [facility] ([facility]) [address] [place], [address], 04/08/2023 09:14:39 04/07/20 23 04/08/2023 COMP. METAB OLIC PANEL (14) alkaline phosphatase 88 IU/L 44-121 Not Available [facility] [address] [facility] [address], [place], [address], 04/08/2023 09:14:39 04/07/20 23 04/08/2023 COMP. METAB OLIC PANEL (14) AST (SGOT) 12 IU/L 0-40 Not Available [facility] ([facility]) [address] [facility] [address], [place], [address], 04/08/2023 09:14:39 04/07/20 23 04/08/2023 COMP. METAB OLIC PANEL (14) ALT (SGPT) 10 IU/L 0-32 Not Available [facility] ([facility]) [address] [place], [address], 04/08/2023 09:14:39 04/07/20 23 04/08/2023 ALBUM IN/CR EAT RATIO , RANDO M UR creatinine, urine 299.8 mg/dL not estab. Not Available [facility] ([facility]) [address] [place], [address], 04/08/2023 09:14:40 04/07/20 23 04/08/2023 ALBUM IN/CR EAT RATIO , RANDO M UR albumin, urine 11.8 ug/mL not estab. Not Available [facility] ([facility]) [address] [facility] [address], [place], [address], 04/08/2023 09:14:40 04/07/2004/08/2023 ALBUM IN/CR EAT RATIO , RANDYamilet M UR alb/creat ratio 4 mg/g_ creat 0-29 Pearl l: 0 - 29 Moder ately incre ased: 30 - 300 Sever meera incre ased: >300 Not Available [facility] ([facility]) [address] [facility] [address], [place], [address], 04/08/2023 09:14:40 04/15/20 23 04/15/2023 RENAL FUNCT ION PANEL sodium 137 mmol/ L 137-14 5 Not Available [facility] (Lab) [address] [place], [address], 04/15/2023 12:59:52 04/15/20 23 04/15/2023 RENAL FUNCT ION PANEL potassium 4.9 mmol/ L 3.5-5. 1 Not Available [facility] (Lab) [address] [place], [address], 04/15/2023 12:59:52 04/15/20 23 04/15/2023 RENAL FUNCT ION PANEL chloride 102 mmol/ L 98-107 Not Available [facility] (Lab) [address] [place], [address], 04/15/2023 12:59:52 04/15/20 23 04/15/2023 RENAL FUNCT ION PANEL carbon dioxide 24 mmol/ L 22-30 Not Available [facility] (Lab) [address] [place], [address], 04/15/2023 12:59:52 04/15/20 23 04/15/2023 RENAL FUNCT ION PANEL anion gap 15.9 mmol/ L 14-22 Not Available [facility] (Lab) [address] [place], [address], 04/15/2023 12:59:52 04/15/20 23 04/15/2023 RENAL FUNCT ION PANEL glucose 98 mg/dL 70-99 Not Available [facility] (Lab) [address] [place], [address], 04/15/2023 12:59:52 04/15/2004/15/2023 RENAL FUNCT ION PANEL BUN 17 mg/dL 8-19 Not Available [facility] (Lab) [address] [place], [address], 04/15/2023 12:59:52 04/15/2004/15/2023 RENAL FUNCT ION PANEL creatinine 1.12 mg/dL 0.66-1 .25 Not Available [facility] (Lab) [address] [place], [address], 04/15/2023 12:59:52 04/15/2004/15/2023 RENAL FUNCT ION PANEL GFR 55 Refer ence Range : Dudley ge GFR Healt hy Adult : >60 mL/mi n/1.7 3 m2 Chron ic Kidne y Disea se: 15-60 mL/mi n/1.7 3 m2 Kidne y Failu re: <15/m L/min /1.73 m2 www.n iddk. nih.g ov The MDRD study equat ion has not been valid ated in child bharat <18 years of age; pregn ant women ; the elder ly >85 years of age; or in some racia l or ethni c subgr oups, such as Hisky nics. Outsi de the valid ated rory eters , estim ated GFR is less accur ate, requi ring clini memo judgm ent on a case- by-ca se basis . Clini memo inter preta tion for other races and ages must be made by the clini juwan. The MDRD study equat ion has not been valid ated for the evalu ation of serum creat inine relat ed to nutri valentine l statu s or medic ation usage . For perso ns <18 years of age, a pedia tric GFR calcu latlyndon is avail able on the NKF websi te: https ://scot w.kid miguel ángel.o rg/pr ofess ional s/kdo qi/gf r_cal culat or Not Available [facility] (Lab) [address] [place], [address], 04/15/2023 12:59:52 04/15/2004/15/2023 RENAL FUNCT ION PANEL calcium 9.6 mg/dL 8.4-10 .2 Not Available [facility] (Lab) [address] [place], [address], 04/15/2023 12:59:52 04/15/2004/15/2023 RENAL FUNCT ION PANEL phosphorus 3.9 mg/dL 2.5-4. 5 Not Available [facility] (Lab) [address] [place], [address], 04/15/2023 12:59:52 04/15/2004/15/2023 RENAL FUNCT ION PANEL albumin 4.4 g/dL 3.4-5. 0 Not Available [facility] (Lab) [address] [place], [address], 04/15/2023 12:59:52 05/28/20 23 05/28/2023 CBC/C OMPLE TE BLD COUNT W/DIF F white blood cells 7.8 x10'3 /uL 4.2-10 .8 Not Available [facility] (Lab) [address] [place], [address], 05/28/2023 18:14:22 05/28/20 23 05/28/2023 CBC/C OMPLE TE BLD COUNT W/DIF F red blood cells 4.78 x10'6 /uL 3.80-5 .20 Not Available [facility] (Lab) [address] [place], [address], 05/28/2023 18:14:22 05/28/20 23 05/28/2023 CBC/C OMPLE TE BLD COUNT W/DIF F hemoglobin 13.9 g/dL 12.0-1 5.6 Not Available [facility] (Lab) [address] [place], [address], 05/28/2023 18:14:22 05/28/20 23 05/28/2023 CBC/C OMPLE TE BLD COUNT W/DIF F hematocrit 42.4 % 35.7-4 5.7 Not Available [facility] (Lab) [address] [place], [address], 05/28/2023 18:14:22 05/28/2005/28/2023 CBC/C OMPLE TE BLD COUNT W/DIF F mean red cell volume 88.7 fL 82.0-9 9.0 Not Available [facility] (Lab) [address] [place], [address], 05/28/2023 18:14:22 05/28/20 23 05/28/2023 CBC/C OMPLE TE BLD COUNT W/DIF F mean red cell hemoglobin 29.1 pg 27.0-3 3.0 Not Available [facility] (Lab) [address] [place], [address], 05/28/2023 18:14:22 05/28/20 23 05/28/2023 CBC/C OMPLE TE BLD COUNT W/DIF F mean RBC HGB concentratio n 32.8 g/dL 31.0-3 6.0 Not Available [facility] (Lab) [address] [place], [address], 05/28/2023 18:14:22 05/28/2005/28/2023 CBC/C OMPLE TE BLD COUNT W/DIF F red cell distribution width 13.6 % 11.8-1 5.5 Not Available [facility] (Lab) [address] [place], [address], 05/28/2023 18:14:22 05/28/2005/28/2023 CBC/C OMPLE TE BLD COUNT W/DIF F platelets 301 x10'3 /uL 150-40 0 Not Available [facility] (Lab) [address] [place], [address], 05/28/2023 18:14:22 05/28/2005/28/2023 CBC/C OMPLE TE BLD COUNT W/DIF F mean platelet volume 10.8 fL 9.0-12 .4 Not Available [facility] (Lab) [address] [place], [address], 05/28/2023 18:14:22 05/28/2005/28/2023 CBC/C OMPLE TE BLD COUNT W/DIF F neutrophils 64.0 % 39.0-7 2.0 Not Available [facility] (Lab) [address] [place], [address], 05/28/2023 18:14:22 05/28/2005/28/2023 CBC/C OMPLE TE BLD COUNT W/DIF F lymphocytes 24.7 % 16.0-4 7.0 Not Available [facility] (Lab) [address] [place], [address], 05/28/2023 18:14:22 05/28/2005/28/2023 CBC/C OMPLE TE BLD COUNT W/DIF F monocytes 9.0 % 5.0-12 .0 Not Available [facility] (Lab) [address] [place], [address], 05/28/2023 18:14:22 05/28/2005/28/2023 CBC/C OMPLE TE BLD COUNT W/DIF F eosinophils 1.4 % 1.0-7. 0 Not Available [facility] (Lab) [address] [place], [address], 05/28/2023 18:14:22 05/28/20 23 05/28/2023 CBC/C OMPLE TE BLD COUNT W/DIF F basophils 0.5 % 0.0-2. 0 Not Available [facility] (Lab) [address] [place], [address], 05/28/2023 18:14:22 05/28/20 23 05/28/2023 CBC/C OMPLE TE BLD COUNT W/DIF F immature granulocytes 0.4 % 0.00-0 .50 Not Available [facility] (Lab) [address] [place], [address], 05/28/2023 18:14:22 05/28/2005/28/2023 CBC/C OMPLE TE BLD COUNT W/DIF F neutrophils, absolute count 4.97 x10'3 /uL 1.5-8. 0 Not Available [facility] (Lab) [address] [place], [address], 05/28/2023 18:14:22 05/28/20 23 05/28/2023 CBC/C OMPLE TE BLD COUNT W/DIF F lymphocytes, absolute count 1.92 x10'3 /uL 1.07-3 .43 Not Available [facility] (Lab) [address] [place], [address], 05/28/2023 18:14:22 05/28/2005/28/2023 CBC/C OMPLE TE BLD COUNT W/DIF F monocytes, absolute count 0.70 x10'3 /uL 0.29-0 .99 Not Available [facility] (Lab) [address] [place], [address], 05/28/2023 18:14:22 05/28/20 23 05/28/2023 CBC/C OMPLE TE BLD COUNT W/DIF F eosinophils, absolute count 0.11 x10'3 /uL 0.02-0 .53 Not Available [facility] (Lab) [address] [place], [address], 05/28/2023 18:14:22 05/28/20 23 05/28/2023 CBC/C OMPLE TE BLD COUNT W/DIF F basophils, absolute count 0.04 x10'3 /uL 0.01-0 .08 Not Available [facility] (Lab) [address] [place], [address], 05/28/2023 18:14:22 05/28/20 23 05/28/2023 CBC/C OMPLE TE BLD COUNT W/DIF F immature granulocytes ,absolute 0.03 x10'3 /uL 0.00-0 .05 Not Available [facility] (Lab) [address] [place], [address], 05/28/2023 18:14:22 05/28/20 23 05/28/2023 CBC/C OMPLE TE BLD COUNT W/DIF F nucleated red blood cells 0.0 % -[address] [facility] (Lab) [address] [place], [address], 05/28/2023 18:14:22 05/28/20 23 05/28/2023 CBC/C OMPLE TE BLD COUNT W/DIF F NRBC# 0.00 x10'3 /uL Not Available [facility] (Lab) [address] [place], [address], 05/28/2023 18:14:22 05/28/20 23 05/28/2023 SEDIM ENTAT ION RATE erythrocyte sedimentatio n rate 10 mm/HR 0-[address] [facility] (Lab) [address] [place], [address], 05/28/2023 18:38:25 05/28/20 23 06/01/2023 VITAM IN D 25-HY DROXY vd25oh 26.7 NG/mL 30-100 low Vitam in D Statu s: Defic ient: <20 ng/mL Insuf ficie nt: 20-29 ng/mL Suffi cient : 30-10 0 ng/mL Not Available [facility] (Lab) [address] [place], [address], 06/01/2023 22:14:24 05/28/20 23 05/28/2023 IRON/ TIBC PANEL total iron binding capacity 360 mcg/d L 265-47 5 Not Available [facility] (Lab) [address] [place], [address], 05/28/2023 18:46:38 05/28/2005/28/2023 IRON/ TIBC PANEL % transferrin saturation 21 % 20-55 Not Available [facility] (Lab) [address] [place], [address], 05/28/2023 18:46:38 05/28/20 23 05/28/2023 IRON/ TIBC PANEL unsaturated iron bind capacity 283 mcg/d L 126-38 2 Not Available [facility] (Lab) [address] [place], [address], 05/28/2023 18:46:38 05/28/20 23 05/28/2023 IRON/ TIBC PANEL iron 77 mcg/d L 42-175 Not Available [facility] (Lab) [address] [place], [address], 05/28/2023 18:46:38 05/28/2005/28/2023 C REACT MELVIN PROTE IN,UL TRA SENS C-reactive protein 0.36 mg/dL 0.0-0. 5 Not Available [facility] (Lab) [address] [place], [address], 05/28/2023 18:45:22 05/28/20 23 05/28/2023 RHEUM ATOID FACTO R rf <8.6 IU/mL 0.0-11 .9 Not Available [facility] (Lab) [address] [place], [address], 05/28/2023 18:45:23 05/28/20 23 05/28/2023 TSH thyroid-stim ulating hormone 1.760 uIU/m L 0.465- 4.680 Not Available [facility] (Lab) [address] [place], [address], 05/28/2023 19:24:10 05/28/2005/28/2023 VITAM IN B12 (ALEJANDRA MELY ) vb12 246 pg/mL 239-93 1 Not Available [facility] (Lab) [address] [place], [address], 05/28/2023 19:48:07 05/28/20 23 05/28/2023 FOLAT E, SERUM /PLAS MA folate 5.51 NG/mL 2.76-2 0.0 Not Available [facility] (Lab) [address] [place], [address], 05/28/2023 19:48:12 05/28/2005/31/2023 BANDAR BY IFA RFX TITER /RAYMOND AMBROCIO antinuclear antibodies, ifa Negati ve Negat melvin <1:80 Borde rline 1:80 Posit melvin >1:80 ICAP nomen eltnavi re: AC-0 For more infor david ryan about Hep-2 cell patte rns use ANApa ttern s.org , the offic vinod schaefer for the Inter natio nal Conse nsus on Antin uclea r Antib ciaran (BANDAR) Patte rns (ICAP ). Perfo rmed at: - [facility] [address] [place] [address], [place] [address] Lab Direc tor: Ponce de la torre PhD, Phone : [phone] Not Available [facility] (Lab) [address] [place], [address], 05/31/2023 11:10:14 08/30/05/14/2022 home sleep study No observ ation record ed. [id number] [facility] [address] [place], [address], 11/18/2022 08:16:17 06/13/20 22 06/13/2022 US, pelvi s, compl ete No observ ation record ed. [id number], [address], 11/18/2022 08:16:17 06/23/20 22 06/19/2022 home sleep study No observ ation record ed. [id number] [facility] [address] [place], [address], 11/18/2022 08:16:17 06/23/20 22 06/19/2022 sleep study , diagn ostic (PROC ) No observ ation record ed. [id number] Not Available 11/18/2022 08:16:17 04/01/20 23 04/01/2023 CT, abdom en + pelvi s, w/o contr ast No observ ation record ed. [email or web address] [address], [place], [address], 04/02/2023 08:53:47 07/06/20 23 07/06/2023 XR, abdom en No observ ation record ed. [email or web address] [address], [address], 07/07/2023 12:46:19 07/06/20 23 07/06/2023 US, renal No observ ation record ed. [email or web address] [address], [address], 07/07/2023 14:38:55 Result Notes None recorded. Problems Name Problem SNOMED Code Status Onset Date Resolution Date Notes Provider Name and Address Organization Details Recorded Time Irritable bowel syndrome 72244082 Active Not Available [facility] 22:14:47 Venous thrombosis 420010881 Active Not Available [facility] 3 22:14:47 Labyrinthi tis 93984468 Completed 02/23/2024 GERRI Quintero [address], [address], [place], [address] , [employer] [facility] [employer] [facility] 4 08:37:51 Depressive disorder 55775261 Active Not Available [facility] 3 22:14:47 Pain in throat 880700664 Active 2022 Not Available [facility] 3 22:14:47 Acid reflux 673343620 Active 2022 Not Available [facility] 3 22:14:48 Chronic kidney disease stage 2 042638356 Active 2022 Not Available [facility] 3 22:14:47 Serum creatinine above reference range 477746554 Active 2022 Not Available [facility] 3 22:14:47 Right flank pain 202695722 Completed 202202/23/2024 GERRI Quintero [address], [address], [place], [address] , [facility] 4 08:38:06 Laboratory test result abnormal 409250921 Active 2022 Not Available [facility] 3 22:14:47 Flank pain 156391613 Completed 202202/23/2024 GERRI Quintero [address], [address], [place], [address] , [employer] [facility] [employer] [facility] 4 08:37:47 Chronic kidney disease 216110380 Active 2022 Not Available [facility] 3 22:14:48 Multiple joint pain 12627378 Active 2022 Not Available [facility] 3 22:14:47 Fatigue 19386115 Active 2022 Not Available [facility] 3 22:14:48 Chronic fatigue syndrome 57616302 Active 2022 Not Available [facility] 3 22:14:47 Vitamin B12 deficiency (non anemic) 93864087 Active 2022 Not Available [facility] 3 22:14:47 Vitamin D deficiency 87087261 Active 2022 Not Available [facility] 3 22:14:47 Anxiety 89800026 Active 2022 Davy Lua MD [address], [address], [place], [address] , [facility] 3 13:57:52 Venous malformati on 267882569 Active 2022 Dany Resendez RN null, [place] [facility] 3 11:35:29 Migraine with aura 2083311 Active 2023 GERRI Quintero [address], [address], [place], [address] , [facility] 4 09:32:16 Low back pain 294109068 Active 2023 GERRI Quintero [address], [address], [place], [address] , [facility] 4 09:50:01 Goiter 0955652 Active 2023 GERRI Quintero [address], [address], [place], [address] , [facility] 4 09:53:54 Obesity 114280458 Active 2023 GERRI Quintero [address], [address], [place], [address] , [facility] 4 09:55:10 Chronic kidney disease stage 3 393929827 Active 2023 GERRI Quintero [address], [place], [address] , [facility] 4 10:37:11 Notes:[facility] night 1 sleep usman dy 06/19/22 AHI = 4, supine AHI = 5 Medical History: Depression/Anxiety Labyrinthitis Obesity with mild OSAHS, AHI = 3, 05/14/22 Obesity with mild OSAHS, AHI = 4, 06/19/22 ROBIN IBS Problem Notes None recorded. Procedures Surgical History Date Name Laterality Status Provider Name and Address Organization Details Recorded Time 3 Hysterectomy completed Britt Flores RN [place] [facility] 02/23/2024 09:12:20 Imaging Results Imaging Date Name Status LastModified by Organiz ation Details LastModified Time 06/13/2022 US, pelvis, complete completed [id number], [address], 11/18/2022 08:16:17 05/14/2022 home sleep study completed [id number] [facility] [address] [place], [address], 11/18/2022 08:16:17 06/19/2022 home sleep study completed [id number] [facility] [address] [place], [address], 11/18/2022 08:16:17 06/19/2022 sleep study, diagnostic (PROC) completed [id number] Information not available 11/18/2022 08:16:17 04/01/2023 CT, abdomen + pelvis, w/o contrast completed [email or web address] [address], [address], 04/02/2023 08:53:47 07/06/2023 XR, abdomen completed [email or web address] [address], [address], 07/07/2023 12:46:19 07/06/2023 US, renal completed [address], [address], 07/07/2023 14:38:55 Procedure Notes None recorded. Medical Equipment None Reported. Allergies No known drug allergies Medications Name Sig Start Date Stop Date Status Note LastModified by Organization Details LastModified Time status covid-19/fl u a-b antigen tst TEST DIRECTED TODAY active Not Available Not Available No t Available fluoxetine 40 mg capsule Take 1 capsule every day by oral route. active Not Available Not Available No t Available cyclobenzap rine 10 mg tablet 02/21 completed Not Available Not Available Not Available Mirena 21 mcg/24 hr (up to 8 years) 52 mg intrauterin e device 10/24 completed Not Available Not Available Not Available buspirone 5 mg tablet TAKE 1 TABLET BY MOUTH TWICE DAILY 05/05 completed Not Available Not Available Not Available doxycycline hyclate 100 mg capsule 02/21 completed Not Available Not Available Not Available citalopram 40 mg tablet TK 1 T PO QD 10/12 completed Not Available Not Available Not Available loperamide 2 mg capsule 08/21 completed Not Available Not Available Not Available trazodone 50 mg tablet TK 1/2 TO 2 TS PO QHS PRF INSOMNIA 10/12 completed Not Available Not Available Not Available azithromyci n 250 mg tablet TAKE 2 TABLETS BY MOUTH FOR 1 DAY THEN TAKE 1 TABLET BY MOUTH FOR 4 DAYS 02/22 completed Not Available Not Available Not Available fluconazole 150 mg tablet TK 1 T PO NOW 05/05 completed Not Available Not Available Not Available benzonatate 200 mg capsule TAKE 1 CAPSULE BY MOUTH UP TO THREE TIMES DAILY NEEDED FOR COUGH 02/22 completed Not Available Not Available Not Available clomiphene citrate 50 mg tablet TK 1 T PO ON DAY 5 THROUGH DAY 9 OF CYCLE 10/12 completed Not Available Not Available Not Available hydrocodone 5 mg-acetamin ophen 325 mg tablet TAKE 1 TABLET BY MOUTH EVERY 6 HOURS NEEDED FOR PAIN 04/15 completed Not Available Not Available Not Available fluconazole 200 mg tablet TAKE 1 TABLET BY MOUTH EVERY OTHER DAY 04/15 completed Not Available Not Available Not Available metronidazo le 0.75 % (37.5 mg/5 gram) vaginal gel INSERT 1 APPLICATO RFUL VAGINALLY DAILY AT BEDTIME FOR 5 DAYS 05/05 completed Not Available Not Available Not Available clonazepam 0.5 mg tablet TAKE 1 TABLET BY MOUTH EVERY DAY AT BEDTIME FOR 15 DAYS 05/05 completed Not Available Not Available Not Available fluoxetine 10 mg tablet 10/12 completed Not Available Not Available Not Available sertraline 100 mg tablet TAKE 2 TABLETS BY MOUTH EVERY DAY active Not Available Not Available No t Available methyldopa 250 mg tablet TK 1 T PO BID 12/11 completed Not Available Not Available Not Available terconazole 0.8 % vaginal cream INSERT ONE APPLICATO R FULL INTO THE VAGINA EVERY NIGHT AT BEDTIME FOR 3 DAYS 05/05 completed Not Available Not Available Not Available topiramate 25 mg tablet TAKE 1 TABLET BY MOUTH TWICE DAILY DIRECTED active Not Available Not Available No t Available methylpheni date ER 54 mg tablet,exte nded release 24 hr TAKE 1 TABLET BY MOUTH EVERY DAY active Not Available Not Available No t Available ciprofloxac in 500 mg tablet 10/12 completed Not Available Not Available Not Available tramadol 50 mg tablet TK 1 T PO Q 6 H PRN SEVERE P 02/21 completed Not Available Not Available Not Available lamotrigine 25 mg tablet TAKE 2 TABLETS BY MOUTH EVERY DAY active Not Available Not Available No t Available alprazolam 0.5 mg tablet TAKE 1 TABLET BY MOUTH THREE TIMES DAILY NEEDED active Not Available Not Available No t Available amoxicillin 875 mg tablet Take 1 tablet every 12 hours by oral route. active Not Available Not Available No t Available alprazolam 0.25 mg tablet TAKE 1 TABLET BY MOUTH EVERY DAY NEEDED 05/05 completed Not Available Not Available Not Available citalopram 20 mg tablet 1 po daily 10/12 completed Not Available Not Available Not Available lorazepam 0.5 mg tablet TAKE 1 TABLET BY MOUTH EVERY DAY NEEDED 04/15 completed Not Available Not Available Not Available tamsulosin 0.4 mg capsule TK 1 C PO D 10/12 completed Not Available Not Available Not Available dextroamphe tamine-amph etamine ER 20 mg 24hr capsule,ext end release TAKE 1 CAPSULE BY MOUTH EVERY DAY IN THE MORNING 04/15 completed Not Available Not Available Not Available dicyclomine 20 mg tablet active Not Available Not Available Not Available dexamethaso ne 1 mg tablet TAKE 1 TABLET BY MOUTH ONCE AT 10 PM THE NIGHT BEFORE BLOOD TEST NEXT MORNING 02/22 completed Not Available Not Available Not Available meclizine 25 mg tablet TK 1 T PO Q 6 H PRN 02/21 completed Not Available Not Available Not Available cephalexin 500 mg capsule active Not Available Not Available Not Available pantoprazol e 40 mg tablet,leah yed release TAKE 1 TABLET BY MOUTH EVERY DAY active Not Available Not Available No t Available cyanocobala min (vit B-12) 1,000 mcg/mL injection solution INJECT 1 ML UNDER THE SKIN EVERY MONTH DIRECTED FOR 90 DAYS active Not Available Not Available No t Available oseltamivir 75 mg capsule TK 1 C PO QD 11/20 completed Not Available Not Available Not Available buspirone 10 mg tablet TAKE 1 TABLET BY MOUTH TWICE DAILY 04/15 completed Not Available Not Available Not Available BD Safety-Anette Tuberculin 1 mL 25 gauge x 5/8 syringe USE WITH HEPARIN INJECTION S TWICE DAILY 05/05 completed Not Available Not Available Not Available methylpheni date ER 20 mg tablet,exte nded release TAKE 1 TABLET BY MOUTH EVERY DAY 02/22 completed Not Available Not Available Not Available progesteron e micronized 200 mg capsule 08/21 completed Not Available Not Available Not Available hydroxyzine HCl 25 mg tablet 02/21 completed Not Available Not Available Not Available hydrochloro thiazide 25 mg tablet Take 1 tablet every day by oral route. active Not Available Not Available No t Available ergocalcife rol (vitamin D2) 1,250 mcg (50,000 unit) capsule Take 1 capsule every week by oral route as directed for 84 days. 2023 active Not Available Not Available Not Avai lable BD Tuberculin Syringe 1 mL 25 gauge x 5/8 USE WITH HEPARIN INJECTION S TWICE DAILY 05/05 completed Not Available Not Available Not Available Nasonex 50 mcg/actuati on [place] USE 2 SPRAYS IEN QD 10/12 completed Not Available Not Available Not Available ibuprofen 600 mg tablet 05/05 completed Not Available Not Available Not Available insulin syringe U-100 with needle 1 mL 30 gauge x 7/16 USE BID UTD 12/11 completed Not Available Not Available Not Available methylpredn isolone 4 mg tablets in a dose pack FOLLOW PACKAGE DIRECTION S 02/22 completed Not Available Not Available Not Available oxybutynin chloride 5 mg tablet 10/12 completed Not Available Not Available Not Available ondansetron 4 mg disintegrat ing tablet active Not Available Not Available N ot Available fluticasone propionate 50 mcg/actuati on nasal spray,suspe nsion 05/05 completed Not Available Not Available Not Available sertraline 50 mg tablet TK 1 T PO QD 12/11 completed Not Available Not Available Not Available heparin (porcine) 5,000 unit/mL injection solution INJECT 1 ML SUBCUTANE OUS Q 12 H UTD 05/05 completed Not Available Not Available Not Available lamotrigine 100 mg tablet TAKE 1 TABLET BY MOUTH EVERY DAY active Not Available Not Available No t Available methylpheni date ER 36 mg tablet,exte nded release 24 hr TAKE 1 TABLET BY MOUTH EVERY DAY 02/22 completed Not Available Not Available Not Available metoclopram adolfo 10 mg tablet 10/12 completed Not Available Not Available Not Available amoxicillin 875 mg-potassiu m clavulanate 125 mg tablet TAKE 1 TABLET BY MOUTH TWICE DAILY FOR 7 DAYS 02/22 completed Not Available Not Available Not Available oxycodone 5 mg tablet 04/15 completed Not Available Not Available Not Available enoxaparin 30 mg/0.3 mL subcutaneou s syringe INJECT CONTENTS OF 1 SYRINGE UNDER SKIN ONCE EVERY 24 HOURS 10/12 completed Not Available Not Available Not Available enoxaparin 40 mg/0.4 mL subcutaneou s syringe 04/15 completed Not Available Not Available Not Available dextroamphe tamine-amph etamine ER 15 mg 24hr capsule,ext end release TAKE 1 CAPSULE BY MOUTH EVERY DAY IN THE MORNING 04/15 completed Not Available Not Available Not Available Asprin Ec Low Dose 81 mg tablet,leah yed release Take 1 tablet every day by oral route. 2013 active Not Available Not Available Not Avai lable cyclobenzap rine 5 mg tablet 04/15 completed Not Available Not Available Not Available aripiprazol e 5 mg tablet TAKE 1 TABLET BY MOUTH EVERY DAY 05/05 completed Not Available Not Available Not Available bupropion HCl XL 300 mg 24 hr tablet, extended release TAKE 1 TABLET BY MOUTH EVERY DAY active Not Available Not Available No t Available bupropion HCl XL 150 mg 24 hr tablet, extended release TAKE 1 TABLET BY MOUTH EVERY DAY IN THE MORNING 02/22 completed Not Available Not Available Not Available nitrofurant oin monohydrate /macrocryst als 100 mg capsule TK 1 C PO BID 06/08 completed Not Available Not Available Not Available duloxetine 30 mg capsule,del ayed release TAKE 1 CAPSULE BY MOUTH TWICE DAILY 05/05 completed Not Available Not Available Not Available Prilosec OTC 05/05 completed Not Available Not Available Not Available BD Integra Syringe 3 mL 25 gauge x 1 USE DIRECTED active Not Available Not Available No t Available aripiprazol e 2 mg tablet TAKE 1 TABLET BY MOUTH EVERY DAY 04/15 completed Not Available Not Available Not Available quetiapine 50 mg tablet TK 1 T PO QD HS 05/05 completed Not Available Not Available Not Available FeroSul 325 mg (65 mg iron) tablet TAKE 1 TABLET BY MOUTH DAILY 05/05 completed Not Available Not Available Not Available Vyvanse 40 mg capsule TAKE 1 CAPSULE BY MOUTH EVERY DAY 05/28 completed Not Available Not Available Not Available lurasidone 40 mg tablet TAKE 1 TABLET BY MOUTH EVERY DAY active Not Available Not Available No t Available Viibryd 40 mg tablet Take 1 tablet every day by oral route. active Not Available Not Available No t Available fluoxetine 60 mg tablet TK 1 T PO QD 10/30 completed Not Available Not Available Not Available lurasidone 20 mg tablet TAKE 1 TABLET BY MOUTH EVERY DAY active Not Available Not Available No t Available Farxiga 5 mg tablet Take 1 tablet every day by oral route as directed for 30 days. active Not Available Not Available No t Available Norlyda 0.35 mg tablet TK 1 T PO D 02/21 completed Not Available Not Available Not Available Ubrelvy 50 mg tablet TAKE 1 TABLET BY MOUTH TWICE DAILY NEEDED active Not Available Not Available No t Available Vitals Date Recorded Body mass index (BMI) Body height Oxygen saturation Oxygen saturation in Arterial blood by Pulse oximetry Heart rate Body temperature Body weight Systolic blood pressure Diastolic blood pressure Provider Name and Address Organization Details Last Updated DateTime 2 35.9 kg/m2 162.56 cm 98 % 98 % 90 /min 98.1 [degF] 81821.8 1 g 142 mm[Hg] 80 mm[Hg] Not Available [facility] 08:10:33 Date Recorded Body height Body mass index (BMI) Body weight Body temperature Heart rate Oxygen saturation Oxygen saturation in Arterial blood by Pulse oximetry Systolic blood pressure Diastolic blood pressure Provider Name and Address Organization Details Last Updated DateTime 3 162.56 cm 36 kg/m2 45450.4 g 97.7 [degF] 96 /min 99 % 99 % 110 mm[Hg] 74 mm[Hg] OLINDA Hong [facility] 3 09:18:38 Date Recorded Body height Body mass index (BMI) Body weight Body temperature Heart rate Oxygen saturation Oxygen saturation in Arterial blood by Pulse oximetry Systolic blood pressure Diastolic blood pressure Provider Name and Address Organization Details Last Updated DateTime 3 162.56 cm 35.9 kg/m2 06520.8 1 g 97.9 [degF] 83 /min 99 % 99 % 124 mm[Hg] 72 mm[Hg] Kylie rubi CMA [facility] 3 12:14:19 Date Recorded Body height Body mass index (BMI) Body weight Body temperature Heart rate Respiratory rate Oxygen saturation Oxygen saturation in Arterial blood by Pulse oximetry Pain severity - 0-10 verbal numeric rating [Score] - Reported Systolic blood pressure Diastolic blood pressure Provider Name and Address Organization Details Last Updated DateTime 4 157.48 cm 37.5 kg/m2 69080.1 4 g 97.5 [degF] 83 /min 20 /min 99 % 99 % 0 128 mm[Hg] 78 mm[Hg] Britt Flores RN [facility] 4 09:08:16 Social History Question Answer Notes LastModified by Organization Details LastModified Time Tobacco Smoking Status Never Smoker Not Available [facility] 11/18/2022 08:07:22 Do You Have An Advance Directive? No Information not available 02/23/2024 What Is Your Level Of Alcohol Consumption? Occasional [id number] Information not available 11/18/2022 Is Blood Transfusion Acceptable In An Emergency? Yes Information not available 02/23/2024 What Is Your Level Of Caffeine Consumption? Moderate Soda, Coffee Information not available 02/23/2024 In The 14 Days Before Symptom Onset, Have You Had Close Contact With A Laboratory-avani josemanuel COVID-19 While That Case Was Ill? No Information not available 02/23/2024 In The 14 Days Before Symptom Onset, Have You Had Close Contact With A Person Who Is Under Investigation For COVID-19 While That Person Was Ill? No Information not available 02/23/2024 Are You Currently Employed? Yes Information not available 02/23/2024 What Type Of Diet Are You Following? 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 Information not available 02/23/2024 Have There Been Any Changes To Your Family Or Social Situation? No Information not available 02/23/2024 Are There Any Guns Present In Your Home? No Information not available 02/23/2024 Do You Use Insect Repellent Routinely? Yes Information not available 02/23/2024 Where Do You Live? SingleLevelHouse Information not available 02/23/2024 Do You Have A Medical Power Of Mixing Supervisor? No Information not available 02/23/2024 How Many Children Do You Have? 3 Information not available 02/23/2024 Do You Have Any Pets? Yes Information not available 02/23/2024 What Is Your Relationship Status? Information not available 02/23/2024 Do You Use Your Seat Belt Or Car Seat Routinely? Yes Information not available 02/23/2024 Do You Have Smoke And Carbon Monoxide Detectors In Your Home? Yes Information not available 02/23/2024 Are You Passively Exposed To Smoke? No Information not available 02/23/2024 Are There Any Smokers In Your House? No Information not available 02/23/2024 Do You Participate In Social Media? Yes Information not available 02/23/2024 Do You Feel Stressed (tense, Restless, Nervous, Or Anxious, Or Unable To Sleep At Night)? [id number] Information not available 02/23/2024 Do You Use Any Illicit Or Recreational Drugs? No Information not available 02/23/2024 Do You Use Sunscreen Routinely? Yes Information not available 02/23/2024 Have You Recently Traveled Abroad? No Information not available 02/23/2024 Sex: Unknown Functional Status Question Answer Note LastModified by Organization D etails LastModified Time What is your exercise level? None Information not available 02/23/2024 Mental Status None recorded. Family History Nothing Reported. Medical History Condition Response KIDNEY DISEASE Y ADD/ADHD Y HEADACHES/MIGRAINES Y OTHER # 1 Y ANXIETY DISORDER Y OBESITY Y DEPRESSION (INCLUDING POST ) Y Gynecological History Statement/Question Response Abnormal Pap N Date of LMP 05/02/2022 STIs/STDs N Date of Last Pap 02/17/2021 Duration of Flow (days) 7 Current Control Method IUD Most Recent Mammogram How many live births 83 Date of Last Colonoscopy Frequency of Cycle (Q days) 30 Most Recent Bone Density Sexually Active? Y Menses Monthly Y Date of Last Pap Smear Obstetrics History GPAL:G 3 P 2 1 1 3 Type Value Full Term 2 Spontaneous 1 Premature 1 Living 3 Total 3 Immunizations Vaccine Type Date Status Note Provider Nam e and Address Organization Details Recorded Time Influenza, split virus, quadrivalent, preservative 0 completed GERRI Quintero [address], [place], [address], [facility] [email or web address] [facility] [employer] [facility] 02/23/2024 09:40:02 Influenza, split virus, quadrivalent, preservative 9 completed GERRI Quintero [address], [address], [place], [address], [facility] [employer] [facility] 02/23/2024 09:40:02 COVID-19, mRNA, LNP-S, PF, 30 mcg/0.3 mL dose 1 completed GERRI Quintero [address], [address], [place], [address], [employer] [facility] [employer] [facility] 02/23/2024 09:40:02 COVID-19, mRNA, LNP-S, PF, 30 mcg/0.3 mL dose 1 completed GERRI Quintero [address], [place], [address], [employer] [facility] [employer] [facility] 02/23/2024 09:40:02 Influenza, split virus, quadrivalent, PF completed GERRI Quintero [address] [facility], [address] [address], [place], [address], [facility] [employer] [facility] 02/23/2024 09:40:02 Past Encounters Encounter ID Performer Location Encounter Start Date Encounter Closed Date Diagnosis/Indication Diagnosis SNOMED-CT Code Diagnosis ICD10 Code Diagnosis Note [id number] [facility] [place] [address] [place] [address] [place] [address] 05/27/2021 00:00:00 05/27/2021 21:04:22 [id number] [facility] [place] [address] [place] [address] [place] [address] 05/05/2022 00:00:00 05/05/2022 21:16:36 [id number] Davy Lua MD [facility] [place] [address] [place] [address] [place] [address] 11/27/2022 09:38:17 12/01/2022 14:02:01 Pain in throat 576705518 R07.0 [id number] Davy Lua MD [facility] [place] [address] [place] [address] [place] [address] 04/15/2023 09:07:49 04/15/2023 09:33:16 Serum creatinine above reference range 236123692 R79.89 Right flank pain 4430569 09 R10.[address] Scan if right CVA tenderness continues and RLQ pain continues. [id number] Davy Lua MD [facility] [place] [address] [place] [address] [place] [address] 05/28/2023 12:08:27 06/01/2023 16:51:04 Multiple joint pain 45193231 M25.50 Fatigue 07490694 R53.83 [id number] GERRI Quintero [facility] [address] [address] [place] [address] 02/23/2024 08:46:06 02/23/2024 10:47:12 Migraine with aura 6439471 G43.109 Low back pain 214750609 M54.50 Topical gel, ice, heat Goiter 8882583 E04.9 Obesity 067214696 E66.9 Health Concerns Section Related Observation LastModified by Organization Detai ls LastModified Time None Recorded Concern Status LastModified by Organization Details LastModified Time None Recorded Advance Directives Directive N: Payers Encounter Date Sequence Insurance Name Policy Number Policy Macias Covered Member ID Macias Member ID Guarantor Name 11/27/2022 1 [employer] CHO[employer]US [id number] Kylie Carrillo [id number] Kylie Carrillo 04/15/2023 1 [employer] CHO[employer] [id number] Kylie Carrillo [id number] Kylie Carrillo 05/28/2023 1 [employer] CHO[employer]US [id number] Kylie Carrillo [id number] Kylie Carrillo 02/23/2024 1 [employer] CHO[employer]US [id number] Kylie Carrillo [id number] Kylie Carrillo Notes Date Note Type Note Provider Name and Address Organization Details Recorded Time 04/15/2023 text/html Here today for f /u of ER visit. Had a lot of stomach issues and thought had a kidney stone. Was vomiting and had diarrhea was given IVFs Her kidney function was off. No sxs now. Has lower back pain. Urinating ok. It is lower back. Has right flank pain. Davy Lua MD [address] [address], [place], [address], [place] [facility] [employer] 04/15/2023 19:39:31 05/28/2023 text/html Here today c/o fatigue and it is affecting day. Gets 8 hours a night. No sleep apnea. Is very fatigued. It is getting worse and hair falling out a lot. Can not continue to be this tired it is causing problems. Has joint pains mostly hip and elbow and knees.and occasionally wrist. Takes stimulants for ADD is on concerta 20 mg ER and sees a psychiatrist for that. Feels tired after sleeping all night. Is on sertraline which may cause fatigue. Davy Lua MD [address] [facility] [address], [place], [address], [place] [facility] [employer] [facility] 05/29/2023 18:27:00 02/23/2024 text/html Kylie Carrillo is a 38 year old female patient here today to establish care. She was previously under the care of Dr. Lua. She is having a lot of neck and back pain. She states that this feels like more spine pain in the lumbar region and tense in the neck. She has concerns today with frequent migraines. She does not take anything as a preventative. When she feels that a headache is coming she will take tylenol. She is average 2,600 mg up to three times per week. When she gets a migraine she will take 2 Excedrin migraine. She is experiencing this 2-3 times per week. With migraines she is experiencing photophobia and nausea. She declines vomiting. Her past medical history is significant mixed anxiety and depressive disorder. She is seeing psych and therapy. She is currently taking sertraline 200 mg PO daily, bupropion XL 300 mg PO daily, and has alprazolam 0.5 mg PO on hand TID PRN. Primary manages Xanax. She has a history of ADHD. She is taking methylphenidate ER 54 mg PO daily. This is managed by psych. She has a history of GERD. She is taking pantoprazole 40 mg PO daily. She feels her symptoms are somewhat controlled. She admits to not taking this regularly. She has had an EGD, she was told that she has an hiatal hernia. They were not concerned with repairing the hernia. She has a history of vitamin B12 deficiency. She utilizes cyanocobalamin 1,000 mcg/ml injections every month. She is seeing rheumatology for joint pain, hair loss, fatigue. She was BANDAR negative. Flu shots: OVID vaccines:12/23/2020, 01/13/2021Tdap: 2020WWE: 2021, hysterectomyMammogram : 5 years ago for lump, was clear Chris Castellon, GERRI [address], [place], [address], [place] [facility] 02/23/2024 10:44:55 OBGyn Episode No OBEpisode recorded.
--- OUTSIDE RECORDS SUMMARY | 2024-12-16 12:15 | XMS_ITS | Encounter Summary ---
Author Organization [facility] Address [address] [place] [address] Care Team Providers Care Profile Trimmer Name Role Phone Davy Lua MD Primary Care Provider [phone] Encounter Details Date Type Department Care Team (Late st Contact Info) Description 03/11/2009 Outpatient Historical [facility] June Villegas, DO [address] [address] Dysmenorrhea Social History Tobacco Use Types Packs/Day Years Used Date Smoking Tobacco: Never Assessed Comments Unknown Sex and Gender Information Value Date Recorded Sex Assigned at Not on file Legal Sex Female 5:45 AM PREPARED FOODS ASSOCIATE Gender Identity Not on file Sexual Orientation Not on file documented as of this encounter Plan of Treatment Not on file documented as of this encounter Procedures Procedure Name Priority Date/Time Associated Diagnosis Comments POC , URINE Routine 03/27/2009 7:35 AM CDT HEMOGLOBIN AND HEMATOCRIT Routine 03/18/2009 8:16 AM CDT TYPE AND SCREEN Routine 03/18/2009 8:15 AM CDT documented in this encounter Results * POC , URINE (03/27/2009 7:35 AM CDT) , URINE POC Negative Negative [facility] 03/27/2009 7:35 AM CDT 03/27/2009 7:35 AM CDT June Villegas DO POINT OF CARE TESTING Final Resu lt Performing Organization Address [facility] Phone Number INTERFACE SYSTEM Refer to clinic/hospital department [facility] CLIA# [id number] [address] [place] [address] * HEMOGLOBIN AND HEMATOCRIT (03/18/2009 8:16 AM CDT) HEMOGLOBIN 13.9 11.8 - 14.8 g/dL [facility] HEMATOCRIT 40.4 35.5 - 44.0 % [facility] 03/18/2009 8:16 AM CDT 03/18/2009 8:54 AM CDT us June Villegas DO HEMATOLOGY ORDERABLES Final Resu lt Performing Organization Address [facility] Phone Number INTERFACE SYSTEM Refer to clinic/hospital department [facility] CLIA# [id number] [address] [place] [address] * TYPE AND SCREEN (03/18/2009 8:15 AM CDT) HISTORY CHECK No Historical ABO/Rh [facility] SPECIMEN LIFE 3 days from OR date [facility] ABO/RH TYPE A Negative [facility] ANTIBODY SCREEN Negative [facility] 03/18/2009 8:15 AM CDT us June Villegas DO BLOOD BANK ORDERABLES Edited INTERFACE SYSTEM Refer to clinic/hospital department [facility] CLIA# [id number] [address] [place] [address] documented in this encounter Visit Diagnoses Diagnosis Dysmenorrhea documented in this encounter Additional Health Concerns Infection Onset Date Last Indicated Resolved Time COVID-19 07/17/2020 07/17/2020 08/16/2020 1:17 AM PREPARED FOODS ASSOCIATE R/O COVID-19 10/23/2020 10/23/2020 10/23/2020 10:4 4 PM PREPARED FOODS ASSOCIATE COVID-19 10/23/2020 10/23/2020 11/12/2020 1:16 AM PREPARED FOODS ASSOCIATE documented as of this encounter Care Teams Profile Trimmer Relationship Specialty Start Date End Date Davy Lua MD PCP - General Family Practice 11/14/18 documented as of this encounter
--- OUTSIDE RECORDS SUMMARY | 2024-12-16 12:15 | XMS_ITS | Clinical Summary ---
Author Organization [facility] Address [address] [place] [address] Phone Care Team Providers Care Antichecking Iron Worker Name Role Phone Davy Lua MD Primary Care Provider [phone] Allergies No known active allergies Medications aspirin (ECOTRIN EC) 81 mg Tablet, Delayed Release (E.C.) Take 81 mg by mouth daily. Active sertraline (ZOLOFT) 100 mg tablet Take 200 mg by mouth daily at bedtime. 1 Active pantoprazole (PROTONIX) 40 mg Tablet, Delayed Release (E.C.) pantoprazole 40 mg tablet,delayed release TAKE 1 TABLET BY MOUTH EVERY DAY Active buPROPion HCL XL 300 mg 24 hr tablet, extended release Take 150 mg by mouth daily in the morning. Active lamoTRIgine 100 mg tablet Take 50 mg by mouth daily at bedtime. Active LORazepam 0.5 mg tablet Take 0.5 mg by mouth every 6 hours as needed for Anxiety. Active acetaminophen (TYLENOL ORAL) Take by mouth. Active methylphenidate ER 36 mg tablet,extended release 24 hr Take 36 mg by mouth daily. 3 Active flibanserin (Addyi) 100 mg Tablet Take 1 Tablet by mouth daily. 30 Tablet 2 4 Active Active Problems Problem Noted Date Diagnosed Date S/P laparoscopic hysterectomy 11/11/2022 S/P right oophorectomy 11/11/2022 Endometriosis determined by laparoscopy 07/17/20 Venous thrombosis 07/14/2022 Labyrinthitis 07/14/2022 Irritable bowel syndrome 07/14/2022 Nausea and vomiting during p regnancy prior to 22 weeks gestation 04/29/2020 Spontaneous in first trimester 11/22/19 20 pLTCS 10/05, boy FCT: b /l hydronephrosis, superficial thrombophlebitis, lovenox 30mg daily started 10/07 at 1500 10/04/2015 Venous insufficiency 09/09/2015 renal anomaly 08/26/2015 Anxiety 10/25/2014 Overview (07/14/2022): Anxiety Depression 10/25/2014 Overview (07/14/2022): Depression Fall Right sided abdominal pain COVID-19 virus detected Tachycardia Resolved Problems Problem Noted Date Diagnosed Date Resolved Date Abnormal test 10/31/202010/21 Threatened labor at term 10/03/2015 Abd/Back pain, Elev BP/Trans amniase (62/76) Pre-E labs wnl, P/C <0.17, 24'urine, Venous malf - Heparin 5k BID, Mike Hydroneph - FCT, NST daily, Gen diet 09/24/2015 11/02/2020 Elevated blood pressure comp licating in third trimester, antepartum 09/24/2015 11/02/2020 Polyhydramnios in dominguez in third trimester 09/24/2015 11/02/2020 Vaginal yeast infection 08/30/201512/19 Decreased fetus movements af fecting management of mother in third trimester 08/30/2015 11/02/2020 Decreased movement dur ing in second trimester, antepartum 07/08/2015 12/28/2017 Supervision of normal first 05/17/2015 12/28/2017 Uterine contractions during 05/03/2015 11/02/2020 contractions 021 Maternal care for abnormalit ies of the heart rate or rhythm, third trimester, not applicable or unspecified 11/02/2020 Encounters Date Type Department Care Team Description 10/18/2024 External Device Data [facility] ABSTRACTION Provider, Abstract 10/12/2024 External Device Data [facility] ABSTRACTION Provider, Abstract from Last 3 Months Immunizations Immunization Administration Dates Next Due (ADACEL/BOOSTRIX)(10 YR UP) TDAP VACCINE, 0.5ML, IM 09/04/2020,12/14/2017,08/14/2015 INFLUENZA VACCINE QUADRIVALE NT 6 MOS UP PF IM 06/13/2020 Influenza Seasonal Unspecifi ed Formulation IM 06/04/2017,06/04/2015,06/03/2014 Rho (D) IMMUNE GLOBULIN 1,50 0 UNIT(300 MCG) INJECTION 01/26/2018,11/01/2017,10/05/2015,08/0210/25/2015 Rhogam (Rhig) Human Full Dose IM 09/04/2020 Family History Medical History Relation Name Comments Diabetes Father Sam Hypertension Father Sam Breast Cancer Maternal Grandmother G Alberto Postme nopausal Depression Mother Oksana Hypertension Mother Oksana Heart Disease Paternal Grandfather Gpa Ad Depression Sister 1 Alejandro Endometriosis Sister 1 Alejandro Healthy Sister 1 Alejandro Seizures Sister 1 Alejandro Endometriosis Sister 2 Suzanne Healthy Sister 2 Suzanne Colon Cancer Neg Hx Relation Name Status Comments Father Sam Alive Maternal Grandmother G Alberto Mother Oksana Alive Paternal Grandfather Gpa Ad Sister 1 Alejandro Alive Sister 2 Suzanne Alive Social History Tobacco Use Types Packs/Day Years Used Date Smoking Tobacco: Never Smokeless Tobacco: Never Tobacco Cessation:Counseling Given: Not Answered Alcohol Use Standard Drinks/Week Comments Yes 1 (1 standard drink = 0.6 oz pur e alcohol) Once a month Feeling Safe Answer Date Recorded Are you in a relationship wi th someone who hurts you emotionally and/or physically? No 12/09/2022 Comments No Sex and Gender Information Value Date Recorded Sex Assigned at Not on file Legal Sex Female 5:45 AM TRAFFIC EXPERT Gender Identity Not on file Sexual Orientation Not on file Last Filed Vital Signs Vital Sign Reading Time Taken Comments Blood Pressure 126/72 11/12/2023 9:08 AM TRAFFIC EXPERT Pulse 88 12/10/2022 12:46 AM CDT Temperature 36.4 C (97.5 F) 12/10/2022 12:46 AM CDT Respiratory Rate 16 12/10/2022 12:46 AM CDT Oxygen Saturation 97% 12/10/2022 12:46 AM CDT Inhaled Oxygen Concentration - - Weight 94.6 kg (208 lb 9.6 oz) 11/12/2023 9:08 A M TRAFFIC EXPERT Height 160 cm (5' 3 ) 11/12/2023 9:08 AM TRAFFIC EXPERT Body Mass Index 36.95 11/12/2023 9:08 AM TRAFFIC EXPERT Plan of Treatment Health Maintenance Due Date Last Done Comments HEPATITIS B VACCINES (1 of 3 - 19+ 3-dose series) 2005 INFLUENZA VACCINE (#1) 2024 , 06/04/2017, 06/04/2015, Additional history exists DTAP/TDAP/TD VACCINES (4 - Td or Tdap) 09/04/2030 09/04/2020, 12/14/2017, 08/14/2015 HPV VACCINES Aged Out No longer eligi ble based on patient's age to complete this topic Medical Devices Implanted Type Area Library Aide Device Identifier Shelf Expiration Date Model / Serial / Lot Barrier Seprafilm 5x6in [id number] - [id number] Implanted:Qty : 1 on 02/01/2018 by Francisca Rico DO at [facility] Adhesion Barrier N/A: Abdomen [employer] [id number] 09/19/2019 [id number] / / [id number] Barrier Seprafilm 5x6in [id number] - [id number] Implanted:Qty : 1 on 10/31/2020 by Cassidy Posey DO at [facility] Adhesion Barrier N/A: Abdomen [employer] [id number] 03/01/2023 [id number] / / [id number] Coils Right: Leg Insurance RX [facility] [employer] Advance Directives For more information, please contact: [phone] * Full Code (Latest Code Status on File) Date Activated Date Inactivated Comments 10/30/2022 9:56 AM 10/30/2022 7:02 PM * Full Code Date Activated Date Inactivated Comments 10/30/2022 9:32 AM 10/30/2022 9:56 AM * Full Code Date Activated Date Inactivated Comments 10/31/2020 8:31 PM 11/01/2020 2:21 AM * Full Code Date Activated Date Inactivated Comments 10/23/2020 4:18 PM 10/25/2020 8:31 PM * Full Code Date Activated Date Inactivated Comments 10/08/2020 9:22 PM 10/09/2020 2:13 AM Care Teams Antichecking Iron Worker Relationship Specialty Start Date End Date Davy Lua MD PCP - General Family Practice 11/14/18
--- OUTSIDE RECORDS SUMMARY | 2024-12-16 12:15 | XMS_ITS | Encounter Summary ---
Author Organization [facility] Address [address] [facility] [address] [place] [address] Care Team Providers Care Support Teacher Name Role Phone Davy Lua MD Primary Care Provider [phone] Reason for Visit * Reason Onset Date Comments Courtesy Call 02/10/2019 Encounter Details Date Type Department Care Team (Late st Contact Info) Description 02/10/2019 Telephone [facility] [place] [address] [place] [address] Derek Thompson (), RT Courtesy Call Social History Tobacco Use Types Packs/Day Years Used Date Smoking Tobacco: Never Smokeless Tobacco: Never Alcohol Use Standard Drinks/Week Comments No 0 (1 standard drink = 0.6 oz pur e alcohol) Comments No Sex and Gender Information Value Date Recorded Sex Assigned at Not on file Legal Sex Female 5:45 AM FRONT COUNTER CLERK Gender Identity Not on file Sexual Orientation Not on file documented as of this encounter Plan of Treatment Not on file documented as of this encounter Visit Diagnoses Not on filedocumented in this encounter Additional Health Concerns Infection Onset Date Last Indicated Resolved Time COVID-19 07/17/2020 07/17/2020 08/16/2020 1:17 AM FRONT COUNTER CLERK R/O COVID-19 10/23/2020 10/23/2020 10/23/2020 10:4 4 PM FRONT COUNTER CLERK COVID-10/23/2020 10/23/2020 11/12/2020 1:16 AM FRONT COUNTER CLERK documented as of this encounter Care Teams Support Teacher Relationship Specialty Start Date End Date Davy Lua MD PCP - General Family Practice 11/14/18 documented as of this encounter
--- OUTSIDE RECORDS SUMMARY | 2024-12-16 12:15 | XMS_ITS | Clinical Summary ---
Author Organization [facility] Address [address] [place] [address] Care Team Providers Care Wrapping Machine Tender Name Role Phone Davy Lua MD Primary Care Provider [phone] Allergies No known active allergies Medications aspirin (ST RICHARD) 81 MG EC tablet Take 81 mg by mouth 1 (one) time each day Active buPROPion XL (WELLBUTRIN XL) 150 MG 24 hr tablet Take 150 mg by mouth 1 (one) time each day Do not crush, chew, or split. Active lamoTRIgine (LaMICtal) 25 MG tablet Take 25 mg by mouth 1 (one) time each day Active pantoprazole (PROTONIX) 40 MG EC tablet Take 40 mg by mouth 1 (one) time each day before breakfast Do not crush, chew, or split. Active sertraline (ZOLOFT) 100 MG tablet Take 200 mg by mouth 1 (one) time each day Active lisdexamfetamin e (VYVANSE) 40 MG capsule Take 40 mg by mouth 1 (one) time each day in the morning Active Social History Tobacco Use Types Packs/Day Years Used Date Smoking Tobacco: Never Smokeless Tobacco: Never Tobacco Cessation:Counseling Given: Not Answered Alcohol Use Standard Drinks/Week Comments Yes 0 (1 standard drink = 0.6 oz pur e alcohol) Occasional Comments Unknown Sex and Gender Information Value Date Recorded Sex Assigned at Not on file Legal Sex Female 11:48 AM EDT Gender Identity Not on file Sexual Orientation Not on file Plan of Treatment Health Maintenance Due Date Last Done Comments Hepatitis B Vaccine (1 of 3 - 19+ 3-dose series) 2005 Influenza Vaccine (#1) 2024 Pneumococcal Vaccine: Pediat rics (0 to 5 Years) and At-Risk Patients (6 to 64 Years) Aged Out No longer eligi ble based on patient's age to complete this topic Care Teams Wrapping Machine Tender Relationship Specialty Start Date End Date Davy Lua MD [facility] [place] [address] PCP - General Family Medicine 06/21/23
--- OUTSIDE RECORDS SUMMARY | 2024-12-16 12:15 | XMS_ITS | Referral Summary ---
Author Organization [facility] [address] [facility] lto Address [address] [place] [address] Care Team Providers Care Cribbing Setter Name Role Phone Neil Diez MD Unavailable [phone] Bhavya Malloy NP Primary Care Provider Edwin Blanchard MD Unavailable [phone] Roselyn Daly MD Unavailable [phone] Encounters Date Type Department Care Team Description 12/07/2024 Telephone [facility] [address] [place] [address] [address] [place] [address] Susan Eller 11/15/2024 1:30 PM INSTRUCTOR PRODUCT INSPECTION Office Visit [facility] Ophthalmology [address] [facility] [address], [address] [place] [address] Amanda Santana MD Idiopathic intracranial hypertension (Primary Dx); Papilledema due to raised intracranial pressure; Unspecified disorder of visual pathways; Encounter for observation for other suspected diseases and conditions ruled out 11/09/2024 Telephone [facility] Ophthalmology [facility] [address] [place] [phone] Amanda Santana MD 11/09/2024 Telephone [facility] Ophthalmology [facility] [address] [place] [phone] Amanda Santana MD 11/08/2024 Telephone [facility] Ophthalmology [address] [place] [address] Outpatient Health [address] [place] [phone] Amanda Santana MD 10/31/2024 Telephone [facility] Ophthalmology [address] [facility] [address]th [place] [address] Amanda Santana MD 10/19/2024 Telephone [facility] Ophthalmology [address] [place] [address] Taina Forbes, OD new pt appt scheduled; requesting sooner appt 10/17/[address] [place] [address] Roselyn Daly MD Test Results 10/16/2024 8:30 AM INSTRUCTOR PRODUCT INSPECTION Lab [address] Other fatigue from Last 3 Months Allergies No known active allergies Medications buPROPion [...] 09/08/2024 Assessment & Plan (09/08/2024 11:55 AM INSTRUCTOR PRODUCT INSPECTION): Tsh Lp Hgba1c To watch caffeine and CHO intake LLQ pain 09/08/2024 Assessment & Plan (09/08/2024 11:56 AM INSTRUCTOR PRODUCT INSPECTION): To ice for trigger point To grnh desiree. Venous vascular malformations 07/07/2023 Anxiety 10/25/2014 Overview (12/26/2016): Anxiety Depression 10/25/2014 Overview (12/26/2016): Depression Social History Tobacco Use Types Packs/Day Years [...] on file Legal Sex Female 8:56 PM INSTRUCTOR PRODUCT INSPECTION Gender Identity Not on file Sexual Orientation Not on file Last Filed Vital Signs Vital Sign Reading Time Taken Comments Blood Pressure 128/82 09/08/2024 11:08 AM INSTRUCTOR PRODUCT INSPECTION Pulse 100 03/29/2024 6:14 PM CDT Temperature 36.8 C (98.2 F) 03/29/2024 6:14 PM CDT Respiratory Rate 18 03/29/2024 6:14 PM CDT Oxygen Saturation 98% 03/29/2024 6:14 PM CDT Inhaled Oxygen Concentration - - Weight 94.8 kg (209 lb) 09/08/2024 11:08 AM INSTRUCTOR PRODUCT INSPECTION Height 160 cm (5' 3 ) 09/08/2024 11:08 AM INSTRUCTOR PRODUCT INSPECTION Body Mass Index 37.02 09/08/2024 11:08 AM INSTRUCTOR PRODUCT INSPECTION Plan of Treatment Not on file Procedures Procedure Name Priority Date/Time Associated Diagnosis Comments FUNDUS PHOTOS/FAF - OU - BOTH EYES Routine 11/15/2024 3:14 PM INSTRUCTOR PRODUCT INSPECTION Unspecified disorder of visual pathways Encounter for observation for other suspected diseases and conditions ruled out OCT, RETINA - OU - BOTH EYES Routine 11/15/2024 3:13 PM INSTRUCTOR PRODUCT INSPECTION Unspecified disorder of visual pathways Encounter for observation for other suspected diseases and conditions ruled out OCT, OPTIC NERVE - OU - BOTH EYES Routine 11/15/2024 3:13 PM INSTRUCTOR PRODUCT INSPECTION Unspecified disorder of visual pathways Encounter for observation for other suspected diseases and conditions ruled out TSH Routine 10/16/2024 8:34 AM INSTRUCTOR PRODUCT INSPECTION Other fatigue LIPID PANEL Routine 10/16/2024 8:34 AM INSTRUCTOR PRODUCT INSPECTION Other fatigue HEMOGLOBIN A1C Routine 10/16/2024 8:34 AM INSTRUCTOR PRODUCT INSPECTION Other fatigue from Last 3 Months Results * Fundus Photos/FAF - OU - Both Eyes (11/15/2024 3:14 PM INSTRUCTOR PRODUCT INSPECTION) Anatomical Region Laterality Modality Head Fundus Photograp hy Narrative 11/15/2024 3:14 PM INSTRUCTOR PRODUCT INSPECTION Nasal blurring OD, 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 Left Eye Findings include normal observations. Notes Normal mean ganglion cell complex thickness OU (on Zeiss Cirrus OCT) Result Liz Santana MD OPHTH TOMOGRAPHY Final Resu lt * OCT, Optic Nerve - OU - Both Eyes (11/15/2024 3:13 PM INSTRUCTOR PRODUCT INSPECTION) RNFL OD 106 micrometers CONTINUUM Anatomical Region Laterality Modality Head Optical Coherenc e Tomography Narrative 11/15/2024 3:13 PM INSTRUCTOR PRODUCT INSPECTION Right Eye Average RNFL thickness 106 micrometers. Notes Improved RNFL OD, unreliable OS us Amanda Santana MD OPHTH TOMOGRAPHY Final Resu lt * TSH (10/16/2024 8:34 AM INSTRUCTOR PRODUCT INSPECTION) Thyroid Stimulating Hormone 1.98 0.30 - 4.20 mcIUnit/mL Blood 10/16/2024 8:34 AM INSTRUCTOR PRODUCT INSPECTION 10/16/2024 10:55 AM INSTRUCTOR PRODUCT INSPECTION Result [facility] Roselyn Daly MD LAB BLOOD ORDERABLE S Final Result HEATHER MAJOR ([place]) 1 [facility] Department [place] [address] * Hemoglobin A1c (10/16/2024 8:34 AM INSTRUCTOR PRODUCT INSPECTION) Pathologist [facility] Hgb A1C 5.5 4.0 - 5.6 % Estimated Average Glucose 111 mg/dL HEATHER MAJOR ([place]) Comment: The ADA recommends reporting an estimated Average Glucose (eAG) with all Hemoglobin A1c results using the equation derived from a study of 507 normal and diabetic adults. Minority populations were underrepresented and children were not included. (Diabetes Care 31:2684-1041, 2008). The eAG is not equivalent to a fasting glucose. Blood 10/16/2024 8:34 AM INSTRUCTOR PRODUCT INSPECTION 10/16/2024 10:55 AM INSTRUCTOR PRODUCT INSPECTION us Roselyn Daly MD LAB BLOOD ORDERABLE S Final Result [facility] ([place]) 1 [facility] Department [place] [address] * (ABNORMAL) Lipid panel (10/16/2024 8:34 AM INSTRUCTOR PRODUCT INSPECTION) Cholesterol 216(H) 30 - 199 mg/dL Comment: [...] NCEP Expert Panel. Circulation 2004;110:227 3. Agusto Denise et al. JEANA Cardiol. 2019January 18;5(5):540-548. doi: 10.1001/jamacardio.2020.0013 Current Interpretive Data was [...] revised on 2018. Chol/HDL ratio 5 KAI MAJOR ([place]) Blood 10/16/2024 8:34 AM INSTRUCTOR PRODUCT INSPECTION 10/16/2024 10:55 AM INSTRUCTOR PRODUCT INSPECTION us Roselyn Daly MD LAB BLOOD ORDERABLE S Final Result HEATHER MAJOR ([place]) 1 [facility] Department [place] [address] from Last 3 Months Insurance [facility] Address: [place] [address] [facility] Address[place] [address] [facility] Address: [facility] [address] [place] [address] Care Teams Cribbing Setter Relationship Specialty Start Date End Date Bhavya Malloy NP [address] [facility] [place] [address] PCP - General Nurse Practitioner 11/15/24 Neil Diez MD [address] [facility] [place] [address] Consulting Physician Ophthalmology 11/15/24 Edwin Blanchard MD [address] [address] Neurologist Neurology 11/15/24 Roselyn Daly MD [address] [place] [address] [place] [address] Consulting Physician Obstetrics and Gynecology 11/15/24
--- OUTSIDE RECORDS SUMMARY | 2024-12-16 12:15 | XMS_ITS ---
Care Plan - [facility] Created on: December 16, 2024 JEVON THOMAS : 1985 Sex: Female Author Organization [facility] Address [address] [place] [address] Phone Care Team Providers Care Tafe Lecturer Name Role Phone Unavailable Unavailable Unavailable
--- OUTSIDE RECORDS SUMMARY | 2024-12-16 12:17 | XMS_ITS | Clinical Summary ---
Author Organization [facility] Address [address] [place] [address] Phone Care Team Providers Care Cisco Engineer Name Role Phone Unavailable Unavailable Unavailable Reason for Visit and Chief Complaint The Chief Complaint is: Fatigue, bodyaches, and headache since Wednesday, exposed to covid on 09-13-21 Plan of Treatment - The options include close observation - Last Documented On 09/26/2021 1:36PM ; [facility] - Continue current medication - Last Documented On 09/26/2021 1:36PM ; [facility] Rapid COVID testing performed today and was negative. Patient to continue to monitor symptoms closely as rapid testing may have false negative results. Patient advised that they may return to work/school when fever free for 24 hours and symptoms have improved. Call with development of additional or worsening symptoms. Go to ED with severe respiratory symptoms. - Last Documented On 09/26/2021 1:36PM ; [facility] Assessments Includes: Assessments from this encounter Findings - Contact with and (Suspected) exposure to COVID-19 [Contact with and (suspected) exposure to COVID-19] - Last Documented On 09/26/2021 1:36PM ; [facility] Medical Equipment - Implanted Devices Includes: Current Devices No Medical Equipment Recorded Medications Includes: Medications discussed during this encounter and other current Medications Current Medications (continue as prescribed) Pantoprazole Sodium 40 MG Or al Tablet Delayed Release 08/31/2021 Provider: BRAD THOMPSON MD Diagnosis: Last Documented On 1:15PM By Suha Alcantara MA ; [facility] buPROPion HCl ER (XL) 300 MG Oral Tablet Extended Release 24 Hour 07/04/2021 Provider: KIERAN VILLASEÑOR MD Diagnosis: Last Documented On 2 1:15PM By Suha Alcantara MA ; [facility] busPIRone HCl 5 MG Oral Tablet 07/04/2021 Provider: KIERAN VILLASEÑOR MD Diagnosis: Last Documented On 2 1:15PM By Suha Alcantara MA ; [facility] Sertraline HCl 100 MG Oral Tablet 07/04/2021 Provide r: KIERAN VILLASEÑOR MD Diagnosis: Last Documented On 2 1:15PM By Suha Alcantara MA ; [facility] Medications Administered Includes: Administered Medications from this encounter No Administered Medications Recorded Vital Signs Includes: Vital Signs from this encounter Vital Name 09/26/2021 01:15P Pulse Rate-Sitting (bpm) 95 Temp-Oral (F) 98.9 Oxygen Saturation (%) 96 Last Documented: On 09/26/2021 1:15PM ; [facility] Results Includes: Results discussed during this encounter Rapid COVID Test [facility] Ordered by JOHN GOULD on 03/2022 Collected: Reported: 09/26/2021 13:27 Last Documented On 2 1:28PM ; [facility] Reviewed on 09/26/2021; All test results are final unless otherwise noted. Rapid COVId neg N (Normal) Last Documented On 2 1:28PM ; [facility] Int. QC Acceptable yes N (Normal) Last Documented On 2 1:28PM ; [facility] Lot # and Exp. Date [id number] 12-21-21 N (Normal) Last Documented On 2 1:28PM ; [facility] History of Present Illness Includes: History of [...] 09/26/2021 Last Documented On 2 1:36PM ; [facility] Smoking Status Unknown Procedures and Surgical History Includes: Procedures from this encounter Procedures Code Diagnosis Performing Provider Service L ocation Service Date Pt to use OTC fever/pain product as needed per product instruction.~ Last Documented On 2 1:34PM ; [facility] plan of care reviewed and agreed to Last Documented On 2 1:34PM ; [facility] patient to call if symptoms worsen or not improved to update patient's status as needed Last Documented On 2 1:34PM ; [facility] Medical History Includes: Medical History addressed during this encounter Description Last Updated Exposure to a contagious disease 022 Last Documented On 2 1:36PM ; [facility] Not taking OTC medications 09/26/2021 Last Documented On 2 1:36PM ; [facility] Family History Includes: Family History addressed during [...] COVID SICK VISIT- NEW PATIENT JOHN SALTER RN OR LVN-C [facility] 09/26/19 22 12:51PM 1:28PM Contact with and (Suspected) Exposure To Covid-19 Insurance Includes: Active Insurance Policies Plan Name Member ID Group # Subscriber Relationship Effect vernon Dates 1 - [facility] [id number] JEVON lara Clinical Notes Includes: Clinical Notes from this encounter No Clinical Notes Recorded
--- OUTSIDE RECORDS SUMMARY | 2024-12-16 12:17 | XMS_ITS ---
Care Plan - [facility] Created on: December 16, 2024 JEVON THOMAS : 1985 Sex: Female Author Organization [facility] Address [address] [place] [address] Phone Care Team Providers Care Customer Service Consultant Name Role Phone Unavailable Unavailable Unavailable
--- OUTSIDE RECORDS SUMMARY | 2024-12-16 12:17 | XMS_ITS | Continuity of Care Document ---
Author Organization [facility] Address [address] [place] [address] Phone Care Team Providers Care Blender Helper Name Role Phone Unavailable Unavailable Unavailable Advance Directives Directive Yes / No Effective Date File Name No Information Encounters Encounter Description Practice Location Reason(s) For Visit Diagnoses Date Provider Providers Copied on Encounter [facility], [address] [facility], [place], [place], [id number], tel:[phone] [facility] No Information 6 No Information Referring Provider: KYLIE CASTILLO H, [address], [place], [address]. tel:[phone] Family History Family Member Type Diagnosis Age At Onset No Information Payers Payer name Insurance type Covered green party ID Authoriza tion(s) [facility] [id number] CI [id number] Social History Type Description Quantity Date Captured Comments Sex Female Smoking Status No Information Chief Complaint And Reason For Visit No Information History Of Present Illness Encounter Date Complaint History Of Prese nt Illness No Information Instructions Date Instruction Additional Infor mation No Information Assessments Type Assessment Date No Information
--- OUTSIDE RECORDS SUMMARY | 2024-12-16 12:17 | XMS_ITS ---
Author Organization [facility] Address [address] [place] [address] Phone Care Team Providers Care Cream Gatherer Name Role Phone Unavailable Unavailable Unavailable Plan of Treatment Findings Encounter Date Continue current medication COVID SICK V ISIT- NEW PATIENT with JOHN SALTER PRODUCT SAFETY SPECIALIST-C 09/26/2021 Last Documented On 2 1:36PM ; [facility] The options include close observation CO VID SICK VISIT- NEW PATIENT with JOHNKALA SALTER PRODUCT SAFETY SPECIALIST-C 09/26/2021 Last Documented On 2 1:36PM ; [facility] Assessments Includes: Assessments for all patient encounters Findings Encounter Date Contact with and (Suspected) exposure to COVID-19 COVID SICK VISIT- NEW PATIENT with JOHN SALTER PRODUCT SAFETY SPECIALIST-C 09/26/2021 Last Documented On 2 1:36PM ; [facility] Medical Equipment - Implanted Devices Includes: Current and historical Devices No Medical Equipment Recorded Medications Includes: Current and historical Medications Current Medications (continue as prescribed) Pantoprazole Sodium 40 MG Or al Tablet Delayed Release 08/31/2021 Provider: BRAD THOMPSON MD Diagnosis: Last Documented On 2 1:15PM By Suha Alcantara MA ; [facility] buPROPion HCl ER (XL) 300 MG Oral Tablet Extended Release 24 Hour 07/04/2021 Provider: KIERAN VILLASEÑOR MD Diagnosis: Last Documented On 2 1:15PM By Suha Alcantara MA ; [facility] busPIRone HCl 5 MG Oral Tablet 07/04/2021 Provider: KIERAN VILLASEÑOR MD Diagnosis: Last Documented On 2 1:15PM By Suha Alcantara MA ; [facility] Sertraline HCl 100 MG Oral Tablet 07/04/2021 Provide r: KIERAN VILLASEÑOR MD Diagnosis: Last Documented On 2 1:15PM By Suha Alcantara MA ; [facility] Medications Administered Includes: Administered Medications in patient's chart No Administered Medications Recorded Results Includes: Results from 12/17/2023 through 12/16/2024 No Results Recorded For Specified Dates History of Present Illness History of Present Illness not supported for this document type No History of Present Illness Recorded Social History Description Last Updated No tobacco use 09/26/2021 Last Documented On 2 1:36PM ; [facility] Smoking Status Unknown Medical History Includes: Medical History in patient's chart Description Last Updated Exposure to a contagious disease 022 Last Documented On 2 1:36PM ; [facility] Not taking OTC medications 09/26/2021 Last Documented On 2 1:36PM ; [facility] Family History Includes: Family History [...] Subscriber Relationship Effect vernon Dates 1 - [facility] [id number] JEVON lara Clinical Notes Includes: Signed Clinical Notes starting from 10/09/2022 No Clinical Notes Recorded
[2024-12-16 12:20] VITALS: BP 128/75; PULSE 89; RESP 16; TEMP 36.6; O2SAT 99
--- NOTE | 2024-12-16 12:36 | ED.URI ---
HPI - URI/Sore Throat General Chief Complaint: Upper Respiratory Infection Stated Complaint: Congestion/Cough Time Seen by Provider: 12/16/24 12:28 Source: patient and RN notes reviewed Mode of arrival: ambulatory Limitations: no limitations History of Present Illness HPI Narrative: Patient presents today with a 6 day history of cough, headache, nasal congestion rhinorrhea, fatigue, sore throat. Symptoms worsened since yesterday. Denies fever or shortness of breath. She has been taking DayQuil and Tylenol with mild relief. No history of asthma or COPD. Related Data Home Medications ?Medication ?Instructions ?Recorded ?Confirmed ?Last Taken ?Type aspirin 81 mg tablet,delayed 81 mg PO DAILY 06/06/21 10/12/23 06/23/21 History release famotidine 20 mg tablet (Pepcid) 20 mg PO DAILY 06/06/21 10/12/23 06/23/21 History bupropion HCl 300 mg 24 hr tablet, 150 mg PO QAM 06/30/23 10/12/23 Unknown History extended release cholecalciferol (vitamin D3) 1,250 1,250 mcg PO WEEKLY 06/30/23 10/12/23 Unknown History mcg (50,000 unit) tablet lamotrigine 50 mg tablet,extended 50 mg PO BID 06/30/23 10/12/23 Unknown History release 24 hr mecobalamin (vitamin B12) 10,000 mcg IM MONTHLY 06/30/23 10/12/23 Unknown History mcg solution for injection methylphenidate HCl 36 mg 36 mg PO QAM 06/30/23 10/12/23 Unknown History tablet,extended release 24 hr (Concerta) sertraline 100 mg tablet 200 mg PO DAILY 06/30/23 10/12/23 Unknown History cyanocobalamin (vitamin B-12) mcg 04/09/24 Unknown History 1,000 mcg/mL injection solution topiramate 25 mg tablet mg 04/09/24 Unknown History acetazolamide 250 mg tablet mg 12/16/24 Unknown History elagolix 150 mg tablet (Orilissa) mg 12/16/24 Unknown History lurasidone 40 mg tablet mg 12/16/24 Unknown History Allergies Allergy/AdvReac Type Severity Reaction Status Date / Time No Known Allergies Allergy Verified 12/16/24 12:32 Review of Systems Review of Systems: CONSTITUTIONAL: + fatigue EYES: Denies visual changes, redness, or discharge. ENT: + rhinorrhea, congestion, sore throat CARDIOVASCULAR: Denies chest pain, palpitations, or edema. RESPIRATORY: Denies dyspnea.+ cough GASTROINTESTINAL: Denies abdominal pain, nausea, vomiting, or diarrhea. GENITOURINARY: Denies dysuria or hematuria. SKIN: Denies rash, itching, or wounds. MUSCULOSKELETAL: Denies back pain, joint pain, or myalgia. NEUROLOGIC: Denies numbness, tingling, or weakness.+ headache PSYCH: Denies depression or anxiety. PMFSH Past Medical History Medical History Inflammatory arthritis Depression Obese Surgical History Surgical History H/O section X's 4 History of right oophorectomy History of partial hysterectomy Status post sclerotherapy of varicose veins Family History Family History Mother Family history non-contributory Social History Social History Smoking status: Never smoker Alcohol intake: current Alcohol use details: socially Substance use: never Substance use type: does not use Lack of Transportation: No Lack of Food: Never True Current Housing: I Have Housing Concerned About Future Housing: No Difficulty Paying Gas/Electric Bills: No Difficulty Paying for Meds: No Currently Unemployed: No Education: Bachelor's Degree Difficulty w/ Childcare or Family Care: No Living arrangements: with family Gender identity (if verbalized by the patient): Female Sexual Orientation (if Verbalized by the Patient): Straight or Heterosexual Spiritual care concerns: No Comments At time of signature, I have reviewed and agree with nursing past medical, surgical, social and family history unless otherwise noted. Please see nursing chart for further information. There is no relevant family history pertinent to the presenting complaint Exam Narrative: GENERAL: Mildly ill-appearing, well-nourished, and in no acute distress. HEAD: Normocephalic, atraumatic. EYES: EOMI. No redness or drainage. Conjunctivae normal. ENT: Mucous membranes pink and moist. Nares congested with rhinorrhea. TMs normal bilaterally. Throat normal. Uvula midline. NECK: Normal AROM. Supple. No lymphadenopathy. CHEST: No respiratory distress. Clear to auscultation. HEART: Regular rate and rhythm. No murmur appreciated. EXTREMITIES: Normal range of motion. No edema. SKIN: Warm, dry, no rash. Capillary refill normal. Normal skin turgor. NEURO: No focal deficits. Alert and oriented x3. Gait steady. PSYCH: Normal affect. No signs of depression or anxiety. Course Course Level of Care: Express Care Visit Vital Signs Vital signs: Vital Signs Temperature 97.8 F 12/16/24 12:20 Pulse Rate 89 12/16/24 12:20 Respiratory Rate 16 12/16/24 12:20 Blood Pressure 128/75 12/16/24 12:20 Pulse Oximetry 99 12/16/24 12:20 Oxygen Delivery Room Air 12/16/24 12:20 Temperature 97.8 F 12/16/24 12:20 Pulse Rate 89 12/16/24 12:20 Respiratory Rate 16 12/16/24 12:20 Blood Pressure 128/75 12/16/24 12:20 Pulse Oximetry 99 12/16/24 12:20 Oxygen Delivery Room Air 12/16/24 12:20 Reviewed MDM - URI/Sore Throat MDM Narrative Medical decision making narrative: Testing negative. Symptoms likely viral in etiology. Discussed [id number] medication use and duration of illness. No prescription medications indicated at this time. Anticipatory guidance given. Differential Diagnosis Differential diagnosis: Likely upper respiratory infection, sinusitis, viral infection, influenza and other (COVID-19) Lab Data Attestation: I reviewed the patient's lab results. Labs: Lab Results 12/16/24 Range/Units 12:20 POC Influenza A Ag Negative (Negative) POC Influenza B Ag Negative (Negative) POC SARS CoV-2 Ag Negative (Negative) Critical Care Time Critical Care Time Critical Care Time: No Discharge Plan Discharge Clinical Impression: Viral syndrome Patient Disposition: Home, Self-Care Condition: Stable Instructions: Viral Syndrome (ED) Additional Instructions: Your influenza and COVID-19 tests are negative today. Your symptoms are likely due to a viral illness, which is not treated with antibiotics. Viral symptoms can be present for up to 7-10 days. Take Tylenol or ibuprofen for fever or pain. Rest and stay hydrated. Follow up with your PCP in 3-5 days if symptoms are not improving. Go to the ER immediately if you have any difficulty breathing or swallowing. Your blood pressure was elevated above 120/80 today at Urgent Care. This puts you above the threshold for follow up. Please schedule a followup visit with your personal physician as soon as possible, for further evaluation and treatment. Even blood pressure exceeding 120/80 may indicate pre-hypertension. Patient Language: Maldivian Prescriptions: No Action topiramate 25 mg tablet cyanocobalamin (vitamin B-12) 1,000 mcg/mL solution acetazolamide 250 mg tablet lurasidone 40 mg tablet Orilissa 150 mg tablet aspirin 81 mg tablet,delayed release (DR/EC) 81 mg PO DAILY famotidine [Pepcid] 20 mg tablet 20 mg PO DAILY bupropion HCl 300 mg tablet extended release 24 hr 150 mg PO QAM sertraline 100 mg tablet 200 mg PO DAILY pantoprazole 40 mg tablet,delayed release (DR/EC) 40 mg PO QAM 30 Days Qty: 30 11RF lamotrigine 50 mg tablet extended release 24hr 50 mg PO BID methylphenidate HCl [Concerta] 36 mg tablet extended release 24hr 36 mg PO QAM cholecalciferol (vitamin D3) 1,250 mcg (50,000 unit) tablet 1,250 mcg PO WEEKLY mecobalamin (vitamin B12) 10,000 mcg recon soln IM MONTHLY Follow-up/Referrals: PHYSICIAN NOT ON STAFF,NONSTAFF [Primary Care Provider] - Time of Disposition: 12:58
[2024-12-16 12:47] LABS: EDCOVIDSCREEN Negative (Negative); EDINFLUASCREEN Negative (Negative); EDINFLUBSCREEN Negative (Negative)
== END 2024-12-16 13:00 | disposition home or self-care (01) ==
PROVIDERS: Emergency Provider Nurse Practitioner
DX: B34.9 Viral infection, unspecified (principal); Z20.822 Contact with and (suspected) exposure to COVID-19; F32.A Depression, unspecified; E66.9 Obesity, unspecified; Z68.37 Body mass index [BMI] 37.0-37.9, adult; M19.90 Unspecified osteoarthritis, unspecified site; Z79.82 Long term (current) use of aspirin; Z90.711 Acquired absence of uterus with remaining cervical stump; Z90.721 Acquired absence of ovaries, unilateral
CPT/HCPCS: 87426; 87804; 99213; G0463